=== PATIENT | female | born 1965 | race Caucasian/White ===

== ENCOUNTER 2017-06-26 12:21 | Emergency (ER) | payer OTHER, SELFPAY | END 2017-06-26 16:31 | disposition home or self-care (01) | PROVIDERS: Emergency Provider Emergency Medicine; Family Provider Emergency Medicine; Visit Provider Emergency Medicine | DX: R11.2 Nausea with vomiting, unspecified (principal); R19.7 Diarrhea, unspecified; R42 Dizziness and giddiness; I10 Essential (primary) hypertension; K51.00 Ulcerative (chronic) pancolitis without complications; Z88.2 Allergy status to sulfonamides; Z88.6 Allergy status to analgesic agent | CPT/HCPCS: 80053; 83690; 83735; 85025; 96365; 96367; 96375; 99285 ==

== ENCOUNTER 2017-08-31 13:43 | Emergency (ER) | payer OTHER, SELFPAY ==
[2017-08-31 14:09] VITALS: PULSE 83; RESP 20; TEMP 36.6; O2SAT 96; BMI 25.4
--- NOTE | 2017-08-31 14:25 | HMH.EDUTC ---
[facility] [place] Impression: Otitis media Qualifiers: Otitis media type: unspecified Chronicity: acute Qualified Code(s): H66.90 - Otitis media, unspecified, unspecified ear Disposition: Home, Self-Care Condition on Discharge: Good Instructions: Middle Ear Infection, Ear Infections (Alternative Therapy) Additional Instructions: Take medication as prescribed Over the counter Motrin or Tylenol as needed for fever or pain Warm compresses on ear may help with pain Return if needed Prescriptions: Amoxicillin [Amoxicillin 500mg Cap] 500 mg PO TID 10 Days #30 cap Referrals: Preston Wong MD [Primary Care Provider] - Time of Disposition: 14:45 Medical Decision Making - Medical Records Medical records reviewed: Yes: I reviewed the patient's medical records. Vital Signs: 08/31/17 14:09 Temperature 98 F Temperature Source Temporal Artery Scan Pulse Rate [Right Radial] 83 Respiratory Rate 20 02 Sat by Pulse Oximetry 96 Oxygen Delivery Method Room Air - Ruben Inquiry Pt receiving controlled substance: No Ruben was queried for this patient: No [facility] [place] - General Stated complaint: both ear pain Mode of Arrival: Family Vehicle Source of Information: Patient Limitations: No Limitations Description of Symptoms (Recalled from Triage Doc. by RN): PT C/O RIGHT JAW PAIN AND EAR PAIN. HEENT Symptoms (Recalled from RN notes): Yes (RIGHT EAR AND JAW PAIN) Resp Symptoms (Recalled from RN notes): No Skin Symptoms (Recalled from RN notes): No MS Symptoms (Recalled from RN notes): No Functional Status (Recalled from RN notes): NA - History of Present Illness Provider Complaint: Patient state that she has been having bilateral ear pain State that right ear has been hurting on and off for over 2 weeks States that she thought it may be her tooth where she had dental work done on her right upper jaw but now right ear is hurting worse than it was - Related Data Home Medications Medication Instructions Recorded Confirmed Cyanocobalamin (Vitamin B-12) 500 mcg PO DAILY 08/31/17 08/31/17 [Vitamin B-12] Hop/Blk Coh/Rhodiola/Flax/Prim 3 each PO DAILY 08/31/17 08/31/17 [Viveben Softgel] Lactobacil 2-S.thermo-Bifido 1 4 each PO DAILY 08/31/17 08/31/17 [Vsl#3 Capsule] Magnesium 250 mg PO DAILY 08/31/17 08/31/17 Previous Rx's Medication Instructions Recorded Amoxicillin [Amoxicillin 500mg 500 mg PO TID 10 Days #30 cap 08/31/17 Cap] Allergies Allergy/AdvReac Type Severity Reaction Status Date / Time codeine [CODEINE] Allergy Mild Verified 08/31/17 14:09 Sulfa (Sulfonamide Allergy Mild Verified 08/31/17 14:09 Antibiotics) [SULFA (SULFONAMIDE ANTIBIOTICS)] CODEINE Allergy Unknown NA-NAUSEA/V Uncoded 06/22/17 15:04 OMITING SULFA (SULFONAMIDE) Allergy Unknown ANAPHYLAXIS Uncoded 06/22/17 15:04 - Worker's Comp Is this a Worker's Comp case?: No [facility] History I have reviewed the patient's past medical history: Yes Medical History: Denies:: Cancer, Diabetes Mellitus Type 1, Diabetes Mellitus Type 2, MRSA Amputation: No Fractures: No - Social History Smoking Status: Never smoker Alcohol Intake: current Alcohol Intake Frequency:: 0-2 drinks per day - Psychiatric History Expresses thoughts of harming self/others: None Suicide Plan Description: No Plan ROS Obtained: Yes All systems reviewed & no additional complaints - ENT Ears, Nose, Mouth, and Throat: Reports otalgia Physical Exam - General General appearance: alert, in no apparent distress - Expanded ENT Exam TM/Canal exam: Right TM: erythema (TM dull, red small bubble like areas noted, left ear unable to view due to wax) - Respiratory Respiratory exam: Present: normal lung sounds bilaterally. Absent: respiratory distress - Cardiovascular Cardiovascular exam: Present: regular rate, normal rhythm. Absent: JVD - Neurological Exam Neurological exam: Present: alert, oriented X3
--- NOTE | 2017-08-31 14:41 | ED_ITS ---
[facility] [place] Clinical Impression: Otitis media Qualifiers: Otitis media type: unspecified Chronicity: acute Qualified Code(s): H66.90 - Otitis media, unspecified, unspecified ear Disposition: Home, Self-Care Condition on Discharge: Good Instructions: Middle Ear Infection, Ear Infections (Alternative Therapy) Additional Instructions: Take medication as prescribed Over the counter Motrin or Tylenol as needed for fever or pain Warm compresses on ear may help with pain Return if needed Prescriptions: Amoxicillin [Amoxicillin 500mg Cap] 500 mg PO TID 10 Days #30 cap Referrals: Preston Wong MD [Primary Care Provider] - Time of Disposition: 14:45 Medical Decision Making - Medical Records Medical records reviewed: Yes: I reviewed the patient's medical records. Vital Signs: 08/31/17 14:09 Temperature 98 F Temperature Source Temporal Artery Scan Pulse Rate [Right Radial] 83 Respiratory Rate 20 02 Sat by Pulse Oximetry 96 Oxygen Delivery Method Room Air - Ruben Inquiry Pt receiving controlled substance: No Ruben was queried for this patient: No [facility] [place] - General Stated complaint: both ear pain Mode of Arrival: Family Vehicle Source of Information: Patient Limitations: No Limitations Description of Symptoms (Recalled from Triage Doc. by RN): PT C/O RIGHT JAW PAIN AND EAR PAIN. HEENT Symptoms (Recalled from RN notes): Yes (RIGHT EAR AND JAW PAIN) Resp Symptoms (Recalled from RN notes): No Skin Symptoms (Recalled from RN notes): No MS Symptoms (Recalled from RN notes): No Functional Status (Recalled from RN notes): NA - History of Present Illness Provider Complaint: Patient state that she has been having bilateral ear pain State that right ear has been hurting on and off for over 2 weeks States that she thought it may be her tooth where she had dental work done on her right upper jaw but now right ear is hurting worse than it was - Related Data Home Medications Medication Instructions Recorded Confirmed Cyanocobalamin (Vitamin B-12) 500 mcg PO DAILY 08/31/17 08/31/17 [Vitamin B-12] Hop/Blk Coh/Rhodiola/Flax/Prim 3 each PO DAILY 08/31/17 08/31/17 [Viveben Softgel] Lactobacil 2-S.thermo-Bifido 1 4 each PO DAILY 08/31/17 08/31/17 [Vsl#3 Capsule] Magnesium 250 mg PO DAILY 08/31/17 08/31/17 Previous Rx's Medication Instructions Recorded Amoxicillin [Amoxicillin 500mg 500 mg PO TID 10 Days #30 cap 08/31/17 Cap] Allergies Allergy/AdvReac Type Severity Reaction Status Date / Time codeine [CODEINE] Allergy Mild Verified 08/31/17 14:09 Sulfa (Sulfonamide Allergy Mild Verified 08/31/17 14:09 Antibiotics) [SULFA (SULFONAMIDE ANTIBIOTICS)] CODEINE Allergy Unknown NA-NAUSEA/V Uncoded 06/22/17 15:04 OMITING SULFA (SULFONAMIDE) Allergy Unknown ANAPHYLAXIS Uncoded 06/22/17 15:04 - Worker's Comp Is this a Worker's Comp case?: No [facility] History I have reviewed the patient's past medical history: Yes Medical History: Denies:: Cancer, Diabetes Mellitus Type 1, Diabetes Mellitus Type 2, MRSA Amputation: No Fractures: No - Social History Smoking Status: Never smoker Alcohol Intake: current Alcohol Intake Frequency:: 0-2 drinks per day - Psychiatric History Expresses
[2017-08-31 14:46] VITALS: BP 117/94; PULSE 65; RESP 20; TEMP 36.9; O2SAT 99
== END 2017-08-31 14:50 | disposition home or self-care (01) ==
PROVIDERS: Emergency Provider Nurse Practitioner; Family Provider Emergency Medicine; PCP Emergency Medicine
DX: H66.90 Otitis media, unspecified, unspecified ear (principal); Z79.899 Other long term (current) drug therapy
CPT/HCPCS: 99202

== ENCOUNTER → 2017-10-05 11:10 | Outpatient (POV) | payer OTHER, SELFPAY | PROVIDERS: Family Provider Emergency Medicine; PCP Emergency Medicine; Visit Provider Otolaryngology | DX: Z00.00 Encounter for general adult medical examination without abnormal findings (principal) ==

== ENCOUNTER → 2017-10-27 08:52 | Outpatient (CLI) | payer OTHER, SELFPAY ==
--- NOTE | 2017-10-27 08:56 | XR_ITS ---
XR elbow LT min 3V HISTORY: Pain with limited range of motion ITS.REASON: left elbow pain ORDERING PHYSICIAN: Beto Nguyen MD PATIENT AGE: 51 years FINDINGS: There is a nondisplaced longitudinal fracture involving the head of the radius with intra-articular extension with mild distraction of the radial neck. Fracture line is less sharp than expected for an acute fracture consistent with a subacute fracture. IMPRESSION: Nondisplaced longitudinal intra-articular fracture of the radial head with mild impaction of the radial neck
== END ==
PROVIDERS: PCP Emergency Medicine; Visit Provider Orthopaedic Surgery
DX: M25.522 Pain in left elbow (principal)
CPT/HCPCS: 73080

== ENCOUNTER → 2018-03-08 10:46 | Outpatient (POV) | payer OTHER, SELFPAY | PROVIDERS: Family Provider Emergency Medicine; PCP Emergency Medicine; Visit Provider Otolaryngology | DX: Z00.00 Encounter for general adult medical examination without abnormal findings (principal) ==

== ENCOUNTER → 2018-04-08 09:31 | Outpatient (CLI) | payer OTHER, SELFPAY ==
[2018-04-08 10:25] LABS: Basophils % 0.7 % (0.1-2.0); Eosinophils # 0.1 K/mm3 (0.0-0.4); Eosinophils % 2.5 % (0.1-12.0); Hematocrit 44.3 % (37.0-47.0); Hemoglobin 14.2 g/dL (12.2-16.2); Lymphocytes # 1.2 K/mm3 (0.7-4.5); Lymphocytes % 27.2 K/mm3 (10-50); Mean Corpuscular HGB Conc 32.1 g/dL (31.8-35.4); Mean Corpuscular Hemoglobin 30.4 pg (27.0-31.2); Mean Corpuscular Volume 94.5 fl (81-99); Mean Platelet Volume 7.3 fl (7.4-10.4); Monocytes # 0.2 K/mm3 (0.1-1.0); Monocytes % 4.2 % (1.7-9.3); Neutrophils # 2.9 K/mm3 (1.8-7.8); Neutrophils % 65.3 % (37.0-80.0); Platelet Count 411 K/mm3 (142-424); Red Blood Count 4.68 M/mm3 (4.20-5.40); Red Cell Distribution Width 15.7 % (11.5-17.5); White Blood Count 4.5 K/mm3 (4.8-10.8)
[2018-04-08 11:10] LABS: Alanine Aminotransferase 25 U/L (12-78); Albumin Level 3.8 gm/dL (3.4-5.0); Albumin/Globulin Ratio 1.1 (1.1-1.8); Alkaline Phosphatase 75 U/L (46-116); Anion Gap 13.8 mEq/L (5-15); Aspartate Amino Transferase 18 U/L (15-37); Bilirubin,Total 0.6 mg/dL (0.2-1.0); Blood Urea Nitrogen 7 mg/dL (7-18); Calcium 9.2 mg/dL (8.5-10.1); Carbon Dioxide 27 mmol/L (21.0-32.0); Chloride 105 mmol/L (98-107); Chol/HDL Ratio 2.3 (1-3.5); Cholesterol 244 mg/dL (140-200); Estimated Glomerular Filt Rate 87 ml/min (>60); GFR (African American) 106 ML/MIN (>60); Globulin 3.4 gm/dl (1.3-3.2); Glucose 105 mg/dL (74-106); HDL Cholesterol 107 mg/dL (29-89); LDL Cholesterol 114 mg/dL (0-130); Potassium 3.8 mmoL/L (3.5-5.1); Sodium 142 mmol/L (136-145); Total Protein,Serum 7.2 gm/dL (6.4-8.2); Triglycerides 117 mg/dL (30-200); VLDL Cholesterol 23 mg/dL (0-40)
[2018-04-09 08:20] LABS: Testosterone,Total 14 ng/dL (3-41)
[2018-04-09 18:09] LABS: Estradiol <5.0 pg/mL (.)
[2018-04-09 18:11] LABS: Vitamin B12 455 pg/mL (232-1245); Vitamin D 25 Hydroxy 45.1 ng/mL (30.0-100.0)
[2018-04-11 04:06] LABS: Testosterone,Free 0.2 pg/mL (0.0-4.2)
== END ==
PROVIDERS: PCP Nurse Practitioner Obstetrics & Gynecology; Visit Provider Nurse Practitioner Obstetrics & Gynecology
DX: R53.83 Other fatigue (principal)
CPT/HCPCS: 36415; 80053; 80061; 82607; 82652; 82670; 84402; 84403; 85025

== ENCOUNTER → 2018-09-22 16:24 | Outpatient (CLI) | payer OTHER, SELFPAY ==
[2018-09-22 18:36] LABS: C-Reactive Protein < 0.2 mg/L (0.0-0.9)
[2018-09-24 08:29] LABS: DHEA-Sulfate 113.7 ug/dL (41.2-243.7)
[2018-09-26 08:19] LABS: Estradiol 26.3 pg/mL (.); Progesterone 0.4 ng/mL (.)
[2018-09-27 13:10] LABS: Testosterone, Total, LC/MS 29.9 ng/dL (.); Testosterone,Free 0.5 pg/mL (0.0-4.2)
== END ==
PROVIDERS: Visit Provider Nurse Practitioner Adult Health
DX: R79.82 Elevated C-reactive protein (CRP) (principal); E34.9 Endocrine disorder, unspecified; R53.83 Other fatigue; Z79.890 Hormone replacement therapy
CPT/HCPCS: 36415; 82626; 82670; 84144; 84402; 84403; 86140

== ENCOUNTER → 2019-09-07 09:34 | Outpatient (CLI) | payer OTHER, SELFPAY ==
[2019-09-07 11:02] LABS: Basophils # 0.1 K/mm3 (0-0.2); Basophils % 1.1 % (0.1-2.0); Eosinophils # 0.3 K/mm3 (0.0-0.4); Eosinophils % 5.3 % (0.1-12.0); Hematocrit 43.8 % (37.0-47.0); Lymphocytes # 1.7 K/mm3 (0.7-4.5); Lymphocytes % 30.6 % (10-50); Mean Corpuscular HGB Conc 31.9 g/dL (31.8-35.4); Mean Corpuscular Hemoglobin 32.3 pg (27.0-31.2); Mean Corpuscular Volume 101.3 fl (81-99); Mean Platelet Volume 7.5 fl (7.4-10.4); Monocytes # 0.3 K/mm3 (0.1-1.0); Monocytes % 5.4 % (1.7-9.3); Neutrophils # 3.2 K/mm3 (1.8-7.8); Neutrophils % 57.6 % (37.0-80.0); Platelet Count 375 K/mm3 (142-424); Red Blood Count 4.32 M/mm3 (4.20-5.40); Red Cell Distribution Width 14.2 % (11.5-17.5); White Blood Count 5.6 K/mm3 (4.8-10.8)
[2019-09-07 12:02] LABS: Chloride 100 mmol/L (98-107); Potassium 4.4 mmoL/L (3.5-5.1); Sodium 136 mmol/L (136-145)
[2019-09-07 12:04] LABS: Alanine Aminotransferase 25 U/L (12-78); Blood Urea Nitrogen 13 mg/dl (7-17); Estimated Glomerular Filt Rate 74 ml/min (>60); GFR (African American) 90 ML/MIN (>60)
[2019-09-07 12:05] LABS: Albumin Level 3.9 g/dl (3.5-5.0); Albumin/Globulin Ratio 1.3 (1.1-1.8); Alkaline Phosphatase 68 U/L (38-126); Aspartate Amino Transferase 34 U/L (14-36); Bilirubin,Total 0.5 mg/dl (0.2-1.3); Calcium 9.8 mg/dl (8.4-10.2); Cholesterol 256 mg/dl (140-200); Glucose 84 mg/dl (74-100); Total Protein,Serum 6.9 g/dl (6.3-8.2); Triglycerides 101 mg/dl (30-150); VLDL Cholesterol 20 mg/dL (0-40)
[2019-09-07 12:12] LABS: C-Reactive Protein 4.9 mg/L (0-4)
[2019-09-07 12:15] LABS: HDL Cholesterol > 110 mg/dl (40-60)
[2019-09-07 12:17] LABS: Direct LDL Cholesterol 137.25 mg/dL (100-129)
[2019-09-07 12:22] LABS: Triiodothryronine (T3) Uptake 31 % (23.5-40.5)
[2019-09-07 12:23] LABS: Free Thyroxine Index 2.6 ug/dL (5.93-13.13); T4 (Thyroxine) 8.5 ug/dl (5.53-11.0)
[2019-09-07 12:37] LABS: Thyroid Stimulating Hormone 1.46 uIU/mL (0.465-4.68)
[2019-09-07 12:58] LABS: Anion Gap 15.4 mEq/L (5-15); Carbon Dioxide 25 mmol/L (22.0-30.0)
[2019-09-08 06:30] LABS: DHEA-Sulfate 648.6 ug/dL (29.4-220.5)
[2019-09-08 10:32] LABS: Vitamin D 25 Hydroxy 38.2 ng/mL (30.0-100.0)
[2019-09-08 13:59] LABS: Vitamin B12 667 pg/mL (232-1245)
[2019-09-12 14:58] LABS: Testosterone, Total, LC/MS 39.1 ng/dL (.); Testosterone,Free 1.5 pg/mL (0.0-4.2)
== END ==
PROVIDERS: Visit Provider Nurse Practitioner Adult Health
DX: R79.82 Elevated C-reactive protein (CRP) (principal); E34.9 Endocrine disorder, unspecified; R53.83 Other fatigue; E78.2 Mixed hyperlipidemia; E55.9 Vitamin D deficiency, unspecified; E53.8 Deficiency of other specified B group vitamins; Z13.29 Encounter for screening for other suspected endocrine disorder; Z79.890 Hormone replacement therapy
CPT/HCPCS: 36415; 80053; 80061; 82607; 82626; 82652; 82670; 84144; 84402; 84403; 84436; 84443; 84479; 85025; 86140

== ENCOUNTER → 2020-10-07 11:02 | Outpatient (CLI) | payer SELFPAY ==
[2020-10-07 11:17] LABS: Basophils # 0.1 K/mm3 (0-0.2); Basophils % 0.9 % (0.1-2.0); Eosinophils # 0.2 K/mm3 (0.0-0.4); Eosinophils % 2.4 % (0.1-12.0); Hematocrit 46.2 % (37.0-47.0); Hemoglobin 14.4 g/dL (12.2-16.2); Lymphocytes # 1.8 K/mm3 (0.7-4.5); Lymphocytes % 28.2 % (10-50); Mean Corpuscular HGB Conc 31.1 g/dL (31.8-35.4); Mean Corpuscular Hemoglobin 30.7 pg (27.0-31.2); Mean Corpuscular Volume 98.7 fl (81-99); Mean Platelet Volume 7.3 fl (7.4-10.4); Monocytes # 0.4 K/mm3 (0.1-1.0); Monocytes % 5.4 % (1.7-9.3); Neutrophils # 4.1 K/mm3 (1.8-7.8); Platelet Count 396 K/mm3 (142-424); Red Blood Count 4.68 M/mm3 (4.20-5.40); Red Cell Distribution Width 14.2 % (11.5-17.5); White Blood Count 6.5 K/mm3 (4.8-10.8)
[2020-10-07 11:23] LABS: Chloride 106 mmol/L (98-107); Potassium 4.9 mmoL/L (3.5-5.1); Sodium 141 mmol/L (136-145)
[2020-10-07 11:26] LABS: Anion Gap 10.9 mEq/L (5-15); Blood Urea Nitrogen 12 mg/dl (7-17); Carbon Dioxide 29 mmol/L (22.0-30.0); Estimated Glomerular Filt Rate 74 ml/min (>60); GFR (African American) 90 ML/MIN (>60)
[2020-10-07 11:27] LABS: Calcium 9.8 mg/dl (8.4-10.2); Glucose 110 mg/dl (74-100)
--- NOTE | 2020-10-07 12:56 | CT_ITS ---
PROCEDURE: CT ABDOMEN PELVIS WO/W CON CLINICAL INDICATION: rule out possible appendicitis Right lower quadrant pain with nausea COMPARISON: CT ABDPELW CT ABD PELVIS W/ CONTRAST from 12/03/2014 TECHNIQUE: IV Contrast: 75ML Isovue 370 Oral Contrast None Axial images obtained with sagittal and coronal reformats. All CT scans at the facility use one or more dose reduction, viz: automated exposure control, ma/kV adjustment per patient size (including targeted exams where dose is matched to indication, i.e. head), or iterative reconstruction technique. FINDINGS: LOWER THORAX: There is a small subpleural opacity in the left lower lobe laterally at 3 mm not significantly changed. Bilateral breast implants are present ABDOMEN & PELVIS: The liver, spleen, and pancreas have an unremarkable appearance. No renal or ureteral calculi. No hydronephrosis. No renal mass. There is no evidence appendicitis or diverticulitis. There is mild thickening with fatty infiltration of the wall of the sigmoid colon and rectosigmoid region which could be seen with chronic inflammatory changes. No pelvic mass or abnormal fluid collection. There are surgical clips in the left adnexal region. There is degenerative disc disease with grade 1 spondylitic spondylolisthesis of L5 on S1. There are few small nodular opacities in the left pericolic gutter region which may be due to small lymph nodes. There are small periportal nodes also noted. Small mesenteric nodes are present as well. IMPRESSION: 1. No evidence of acute appendicitis. 2. Mild thickening of the rectosigmoid colon with mild fatty infiltration of the mucosa which may be seen with chronic inflammatory change. 3. Other nonacute findings as described above. Dictated by: Mitchell Hendricks MD 10/07/2020 14:07 Mitchell Hendricks MD in [place] 10/07/2020 14:07
== END ==
PROVIDERS: Visit Provider Nurse Practitioner Obstetrics & Gynecology
DX: R10.31 Right lower quadrant pain (principal)
CPT/HCPCS: 36415; 74178; 80048; 85025; Q9967

== ENCOUNTER 2021-01-17 09:56 | Outpatient (CLI) | payer OTHER, SELFPAY ==
[2021-01-17 10:16] VITALS: BMI 26.6
[2021-01-17 10:40] VITALS: BP 128/78; PULSE 76; RESP 17; O2SAT 98
[2021-01-17 10:48] LABS: Basophils # 0.1 K/mm3 (0-0.2); Basophils % 0.8 % (0.1-2.0); Eosinophils # 0.3 K/mm3 (0.0-0.4); Eosinophils % 4.1 % (0.1-12.0); Hematocrit 41.2 % (37.0-47.0); Hemoglobin 13.7 g/dL (12.2-16.2); Lymphocytes # 1.2 K/mm3 (0.7-4.5); Mean Corpuscular HGB Conc 33.3 g/dL (31.8-35.4); Mean Corpuscular Hemoglobin 31.6 pg (27.0-31.2); Mean Corpuscular Volume 94.9 fl (81-99); Monocytes # 0.5 K/mm3 (0.1-1.0); Monocytes % 5.9 % (1.7-9.3); Neutrophils % 74.3 % (37.0-80.0); Platelet Count 339 K/mm3 (142-424); Red Blood Count 4.34 M/mm3 (4.20-5.40); Red Cell Distribution Width 14.6 % (11.5-17.5); White Blood Count 8.1 K/mm3 (4.8-10.8)
[2021-01-17 10:48] LABS: Adenovirus F 40/41, stool Not Detected (NotDetected); Astrovirus Not Detected (NotDetected); Campylobacter Not Detected (NotDetected); Clostridium Difficile A/B, PCR Not Detected (NotDetected); Cryptosporidium Not Detected (NotDetected); Cyclospora Cayetanesis Not Detected (NotDetected); Entamoeba histolytica Not Detected (NotDetected); Enteroaggregative E coli Not Detected (NotDetected); Enteropathogenic E coli Not Detected (NotDetected); Enterotoxigenic E coli Not Detected (NotDetected); Giardia lamblia Not Detected (NotDetected); Norovirus Not Detected (NotDetected); Plesimonas Shigalloides, PCR Not Detected (NotDetected); Rotavirus A Not Detected (NotDetected); Salmonella, PCR Not Detected (NotDetected); Sapovirus Not Detected (NotDetected); Shiga-like toxin E coli Not Detected (NotDetected); Shigella Enterovasive E coli Not Detected (NotDetected); Vibrio Cholerae Not Detected (NotDetected); Vibrio, PCR Not Detected (NotDetected); Yersinia Entercolitica, PCR Not Detected (NotDetected)
[2021-01-17 10:55] LABS: Alanine Aminotransferase 14 U/L (12-78); Albumin Level 3.6 g/dl (3.5-5.0); Albumin/Globulin Ratio 1.1 (1.1-1.8); Alkaline Phosphatase 96 U/L (38-126); Anion Gap 9.2 mEq/L (5-15); Aspartate Amino Transferase 22 U/L (14-36); Blood Urea Nitrogen 7 mg/dl (7-17); Calcium 8.5 mg/dl (8.4-10.2); Carbon Dioxide 30 mmol/L (22.0-30.0); Chloride 100 mmol/L (98-107); Creatinine Clearance Estimated 86 mL/min (50-200); Estimated Glomerular Filt Rate 65 ml/min (>60); GFR (African American) 78 ML/MIN (>60); Globulin 3.2 g/dL (1.3-3.2); Glucose 103 mg/dl (74-100); Lipase 23 U/L (23-300); Potassium 3.2 mmoL/L (3.5-5.1); Sodium 136 mmol/L (136-145); Total Protein,Serum 6.8 g/dl (6.3-8.2)
[2021-01-17 11:01] LABS: C-Reactive Protein 150.7 mg/L (0-4)
--- NOTE | 2021-01-17 11:46 | CT_ITS ---
PROCEDURE: CT ABDOMEN PELVIS W CON CLINICAL INDICATION: Abdominal Pain, history ulcerative colitis COMPARISON: CT CT ABDOMEN PELVIS WO/W CON from 10/07/2020 TECHNIQUE: IV Contrast: 75ML Isovue 370 Oral Contrast None Axial images obtained with sagittal and coronal reformats. All CT scans at the facility use one or more dose reduction, viz: automated exposure control, ma/kV adjustment per patient size (including targeted exams where dose is matched to indication, i.e. head), or iterative reconstruction technique. FINDINGS: LOWER THORAX: No acute finding. Bilateral breast implants noted. ABDOMEN & PELVIS: The liver, gallbladder, spleen, adrenal glands, gallbladder, pancreas, and kidneys have an unremarkable appearance. No intestinal obstruction or free air is evident. There is mild diffuse thickening of the descending colon, sigmoid colon, and rectum. There is stranding of the pericolic fat along the descending colon. Multiple small mildly prominent mesenteric lymph nodes are present and have developed since the previous exam. No abscess or perforation. No obvious fistula. No acute bony findings. IMPRESSION: Colitis of the descending colon, sigmoid colon, and rectum with associated mild Roxanne prominent lymph nodes in the mesenteries. No abscess or perforation Dictated by: Mitchell Hendricks MD 01/17/2021 12:35 Mitchell Hendricks MD in [place] 01/17/2021 12:35
[2021-01-17 12:05] VITALS: BP 131/76; PULSE 81; RESP 17; O2SAT 99
[2021-01-17 12:15] LABS: Erythrocyte Sedimentation Rate 39 mm/hr (0-30)
== END 2021-01-17 12:11 | disposition home or self-care (01) ==
LOC: LAB 09:58
PROVIDERS: PCP Emergency Medicine; Visit Provider Emergency Medicine
DX: R10.9 Unspecified abdominal pain (principal)
CPT/HCPCS: 74177; 80053; 83690; 85025; 85651; 86140; 87507; 96360; Q9967

== ENCOUNTER → 2021-01-29 11:54 | Outpatient (CLI) | payer OTHER, SELFPAY | PROVIDERS: Visit Provider Internal Medicine Gastroenterology | DX: Z20.822 Contact with and (suspected) exposure to COVID-19 (principal) | CPT/HCPCS: U0003 ==

== ENCOUNTER 2021-01-31 09:23 | Day surgery (SDC) | payer OTHER, SELFPAY ==
[2021-01-29 08:55] VITALS: BMI 23.3
[2021-01-31] VITALS (10 sets, daily range): BP systolic 85–130; BP diastolic 60–89; PULSE 88–99; RESP 16–18; TEMP 36.6–37.2; O2SAT 95–100
--- NOTE | 2021-01-31 10:40 | HMH.ANESCL ---
[facility] Anesthesia Checklist - Patient Identification Patient Identification: Arm Band - Structural Data Admitted From: Home Planned Operative Procedure/s: Colonoscopy Consent for Planned Operative Procedure(s) Verified: Yes - NPO Status Verified Time NPO: 00:00 - Airway Assessment C-Spine Mobility Assessed: Yes TMJ Mobility Assessed: Yes Dentition: Good Dentition - Neurological Assessment Level of Consciousness: Awake Hx Seizures: No Numbness or tingling in extremities: No - Anesthesia Plan Anesthesia Risk discussed: Yes Anesthesia Plan: Verified ASA Class: II Anesthesia Type: MAC [facility] History I have reviewed the patient's past medical history: Yes Medical History: Denies:: Cancer, Diabetes Mellitus Type 1, Diabetes Mellitus Type 2, Internal Pacemaker, MRSA, Seizures *Have you ever received a pneumonia vaccine?: No *Have you received a flu vaccine this season?: No Anesthesia experience/problems:: None Other Surgeries: Yes: Colonoscopy, Hysterectomy-Partial. No: Pacemaker Amputation: No Fractures: No - *Social History Last grade of school completed: Some college Smoking Status: Never smoker Alcohol Intake: current Alcohol Intake Frequency:: a few times a month Substance Use Type: denies use *Occupational Status:: unemployed Housing: house Household Members: spouse *Travel in the last 8 weeks: None Family Hx:: Hypertension GUEST RELATIONS MANAGER history: Spontaneous
--- NOTE | 2021-01-31 11:35 | HMH.PROC ---
[facility] Procedure Note Procedure Note:: Colonoscopy Procedure Report: Colonoscopy with cold biopsies Endoscopist: Dejuan Juarez II, MD Referring physician: Preston Wong MD Date of Procedure: January 31, 2021 Equipment: Olympus 190 variable stiffness pediatric colonoscope Sedation: MAC sedation Indication: Mrs. Haywood is a 55-year-old female who is here for diagnostic colonoscopy. More recently, she has had more significant lower abdominal pain and cramps with bloating and bowel irregularity. She did go to the emergency department and had a CAT scan of the abdomen and pelvis. There was evidence of moderate colitis. Her C-reactive protein was 150 and her sed rate was 39. Her PCR gastrointestinal panel for microbials was normal. She did have a colonoscopy in October 2013 that showed moderate left-sided ulcerative proctocolitis. Biopsies at that time were consistent with ulcerative colitis/IBD. She had a small tubular adenoma. She was eating meat/poultry diet with very little residue and previously was taking a stronger probiotic (VSL #3). She did well at that time and has not been on any long-term maintenance of remission therapy for the ulcerative colitis. The patient did respond to prednisone and antibiotics but is tapering off of prednisone. She still has some tenesmus. Procedure: Prior to the procedure, a history and physical exam was performed, and patient's medications and allergies were reviewed. The risks, benefits and alternatives of the sedation and procedure were discussed with the patient. All questions were answered and informed consent was obtained. The patient was brought to the procedure room. Patient identification and proposed procedure were verified by the physician and the nurse. The patient was placed in a left lateral decubitus position and the scope was passed under direct vision. Throughout the procedure, the patient's blood pressure, pulse, and oxygen saturations were monitored continuously. The colonoscopy was accomplished without difficulty. The patient tolerated the procedure well. Findings: On digital rectal examination there was normal rectal tone. There were no external hemorrhoids. The colonoscope was introduced through the anal canal to the rectum and advanced to the cecum. The ileocecal valve and appendiceal orifice were identified. The scope was advanced a short distance into the ileum which appeared grossly normal. The scope was then withdrawn into the colon. The cecum and ascending colon were normal. Throughout the transverse colon there were several scattered pseudopolyps indicative of healing of prior colitis. From 60 cm from the anal verge throughout the descending, sigmoid and rectum was marked mucosal erythema, edema, granularity, ulceration, erosion and some spontaneous bleeding consistent with moderate to marked left-sided ulcerative colitis. Multiple biopsies were taken from the descending and sigmoid colon. This extended all the way to the anal verge. There were small internal hemorrhoids. The preparation was excellent throughout. Impression: 1. Moderate to marked left-sided ulcerative colitis (from 60 cm to the anal verge) and evidence of more proximal colonic pseudopolyps from prior IBD healing Plan: I do think the patient has had chronic ulcerative colitis and now has more significant flareup (acute on chronic ulcerative colitis). I am concerned about the future colectomy risk and risk of developing strictures. More importantly, patients with ulcerative colitis are at increased risk of colorectal cancer and this cumulative risk increases over the course of time. I would encourage increasing prednisone for longer tapering interval and adding mesalamine. The patient does have more severe colitis presently and I would strongly consider top-down approach with a biologic. I will discuss the treatment options with the patient and family.
[2021-01-31 13:07] LABS: Basophils # 0.1 K/mm3 (0-0.2); Basophils % 0.5 % (0.1-2.0); Eosinophils # 0.4 K/mm3 (0.0-0.4); Eosinophils % 3.7 % (0.1-12.0); Hematocrit 37.8 % (37.0-47.0); Hemoglobin 12.5 g/dL (12.2-16.2); Lymphocytes # 1.3 K/mm3 (0.7-4.5); Lymphocytes % 12.7 % (10-50); Mean Corpuscular HGB Conc 32.9 g/dL (31.8-35.4); Mean Corpuscular Hemoglobin 31.1 pg (27.0-31.2); Mean Corpuscular Volume 94.3 fl (81-99); Mean Platelet Volume 7.7 fl (7.4-10.4); Monocytes # 0.6 K/mm3 (0.1-1.0); Monocytes % 5.6 % (1.7-9.3); Neutrophils # 7.7 K/mm3 (1.8-7.8); Neutrophils % 77.5 % (37.0-80.0); Platelet Count 384 K/mm3 (142-424); Red Blood Count 4.02 M/mm3 (4.20-5.40); Red Cell Distribution Width 14.8 % (11.5-17.5); White Blood Count 9.9 K/mm3 (4.8-10.8)
[2021-01-31 13:14] LABS: Iron 24 ug/dL (37-170)
[2021-01-31 13:23] LABS: Total Iron Binding Capacity 281 ug/dL (265-497)
[2021-01-31 13:50] LABS: Ferritin 61.9 ng/ml (11.1-264)
[2021-02-04 16:13] LABS: Saccharomyces cerevisiae, IgA 115.3 Units (0.0-24.9); Saccharomyces cerevisiae, IgG 33.1 Units (0.0-24.9)
== END 2021-01-31 13:42 | disposition home or self-care (01) ==
LOC: OUTP 09:25
PROVIDERS: PCP Emergency Medicine; Visit Provider Internal Medicine Gastroenterology
PROC: 0DJD8ZZ Inspection of Lower Intestinal Tract, Via Natural or Artificial Opening Endoscopic (ICD-10-PCS; CPT 45378; principal; 2021-01-31 10:30)
DX: K51.80 Other ulcerative colitis without complications (principal); K64.0 First degree hemorrhoids; Z86.010 Personal history of colon polyps; Z87.19 Personal history of other diseases of the digestive system; Z82.49 Family history of ischemic heart disease and other diseases of the circulatory system; D64.9 Anemia, unspecified; Z88.2 Allergy status to sulfonamides; Z88.6 Allergy status to analgesic agent; Z79.899 Other long term (current) drug therapy
CPT/HCPCS: 45380; 36415; 82728; 83540; 83550; 85025; 86256; 86671

== ENCOUNTER → 2021-02-06 14:51 | Outpatient (CLI) | payer OTHER, SELFPAY ==
--- NOTE | 2021-02-06 14:58 | XR_ITS ---
PROCEDURE: XR CHEST 2V CLINICAL HISTORY: 12 MONTH CHEST XRAY FOLLOW UP COMPARISON: No exams were available for comparison FINDINGS: The cardiomediastinal silhouette and pulmonary vascularity are within normal limits. The lungs are clear without infiltrates, suspicious nodules, or pleural effusions. Calcified granuloma is present in the left lung base. Faint opacity is present in the left upper lobe at 5 x 2 mm nonspecific. There is minimal biapical pleural thickening nonspecific. No previous exams are available for comparison. Bilateral breast implants noted IMPRESSION: Nonspecific nonacute findings. If there are old films available then comparison can be made and an addendum added when they are made available. Dictated by: Mitchell Hendricks MD 02/06/2021 15:47 Mitchell Hendricks MD in [place] 02/06/2021 15:47
[2021-02-09 07:41] LABS: QuantiFERON-TB Gold Plus Negative (Negative)
== END ==
PROVIDERS: PCP Emergency Medicine; Visit Provider Internal Medicine Gastroenterology
DX: K51.511 Left sided colitis with rectal bleeding (principal)
CPT/HCPCS: 36415; 71046; 86480

== ENCOUNTER → 2021-09-26 19:42 | Outpatient (CLI) | payer OTHER, SELFPAY ==
[2021-09-26 14:08] LABS: Basophils # 0.1 K/mm3 (0-0.2); Eosinophils # 0.1 K/mm3 (0.0-0.4); Eosinophils % 2.3 % (0.1-12.0); Hematocrit 45.3 % (37.0-47.0); Hemoglobin 13.8 g/dL (12.2-16.2); Lymphocytes # 1.5 K/mm3 (0.7-4.5); Lymphocytes % 31.3 % (10-50); Mean Corpuscular HGB Conc 30.5 g/dL (31.8-35.4); Mean Corpuscular Hemoglobin 30.7 pg (27.0-31.2); Mean Corpuscular Volume 100.6 fl (81-99); Mean Platelet Volume 10.6 fl (7.4-10.4); Monocytes # 0.3 K/mm3 (0.1-1.0); Monocytes % 6.2 % (1.7-9.3); Neutrophils # 2.9 K/mm3 (1.8-7.8); Neutrophils % 59.3 % (37.0-80.0); Platelet Count 305 K/mm3 (142-424); Red Blood Count 4.51 M/mm3 (4.20-5.40); Red Cell Distribution Width 16.2 % (11.5-17.5); White Blood Count 4.9 K/mm3 (4.8-10.8)
[2021-09-26 14:49] LABS: Chloride 102 mmol/L (98-107); Potassium 4.9 mmoL/L (3.5-5.1); Sodium 135 mmol/L (136-145)
[2021-09-26 14:52] LABS: Alanine Aminotransferase 19 U/L (12-78); Albumin Level 3.7 g/dl (3.5-5.0); Albumin/Globulin Ratio 1.2 (1.1-1.8); Anion Gap 10.9 mEq/L (5-15); Aspartate Amino Transferase 31 U/L (14-36); Blood Urea Nitrogen 10 mg/dl (7-17); Calcium 8.8 mg/dl (8.4-10.2); Carbon Dioxide 27 mmol/L (22.0-30.0); Estimated Glomerular Filt Rate 74 ml/min (>60); GFR (African American) 89 ML/MIN (>60); Glucose 87 mg/dl (74-100); Total Protein,Serum 6.7 g/dl (6.3-8.2)
[2021-09-26 16:13] LABS: Alkaline Phosphatase 81 U/L (38-126); Bilirubin,Total 0.5 mg/dl (0.2-1.3)
== END ==
PROVIDERS: Visit Provider Emergency Medicine
DX: Z41.9 Encounter for procedure for purposes other than remedying health state, unspecified (principal); Z01.818 Encounter for other preprocedural examination
CPT/HCPCS: 80053; 85025

== ENCOUNTER 2022-10-20 10:48 | Emergency (ER) | payer OTHER, SELFPAY ==
[2022-10-20] VITALS (7 sets, daily range): BP systolic 180–209; BP diastolic 115–128; PULSE 65–84; RESP 16–18; TEMP 36.8–36.9; O2SAT 97–99; BMI 25.4
--- NOTE | 2022-10-20 10:57 | XR_ITS ---
FINAL REPORT CLINICAL HISTORY: FALL, rt hand pain FINDINGS: Right hand Three views were obtained. There is a comminuted fracture of the proximal 5th metacarpal. Fracture line extends to the carpometacarpal joint. There is mild irregularity of the distal 4th metacarpal and 4th proximal phalanx, may represent sequela of prior injury. There is dorsal hand soft tissue swelling. IMPRESSION: Comminuted fracture of the proximal 5th metacarpal. Reviewed, Interpreted and Dictated by Hipolito Haywood III, MD Transcribed by Balbina Lee Authenticated and [facility]
--- NOTE | 2022-10-20 10:57 | XR_ITS ---
FINAL REPORT CLINICAL HISTORY: FALL, rt knee pain FINDINGS: Right knee Three views were obtained. There is no acute fracture or dislocation. The joint spaces appear normal. No joint effusion is identified. No soft tissue abnormality is identified. IMPRESSION: No acute process. Reviewed, Interpreted and Dictated by Hipolito Haywood III, MD Transcribed by Balbina Lee Authenticated and [facility]
--- NOTE | 2022-10-20 10:57 | XR_ITS ---
FINAL REPORT CLINICAL HISTORY: FALL, rt arm pain FINDINGS: Right elbow Three views were obtained. There is no acute fracture or dislocation. The joint spaces appear normal. No joint effusion is identified. No soft tissue abnormality is identified. IMPRESSION: No acute process. Reviewed, Interpreted and Dictated by Hipolito Haywood III, MD Transcribed by Balbina Lee Authenticated and [facility]
--- NOTE | 2022-10-20 11:09 | XR_ITS ---
FINAL REPORT CLINICAL HISTORY: fall FINDINGS: Right forearm Two views were obtained. There is no acute fracture or dislocation. The joint spaces appear normal. No soft tissue abnormality is identified. IMPRESSION: No acute process. Reviewed, Interpreted and Dictated by Hipolito Haywood III, MD Transcribed by Balbina Lee Authenticated and [facility]
--- NOTE | 2022-10-20 11:09 | XR_ITS ---
FINAL REPORT CLINICAL HISTORY: fall, rt arm pain FINDINGS: Right wrist Three views were obtained. There is a comminuted fracture of the proximal 5th metacarpal. Fracture line extends to the carpometacarpal joint. There is mild irregularity of the distal 4th metacarpal and 4th proximal phalanx, may represent sequela of prior injury. There is dorsal hand soft tissue swelling. IMPRESSION: Comminuted fracture of the proximal 5th metacarpal. Reviewed, Interpreted and Dictated by Hipolito Haywood III, MD Transcribed by Balbina Lee Authenticated and [facility]
--- NOTE | 2022-10-20 11:09 | PC.NURSE ---
rad notified xray orders
--- NOTE | 2022-10-20 11:10 | HMH.EDFALL ---
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 therm 1 EACH capsule 4 each PO DAILY Referrals Follow up/Referrals: Daniel Craig DO [Staff Physician] - 7-14 days Preston Wong MD [Primary Care Provider] - 10 days Provider,ReferralMD [Referring] - See instructions Clinical Impressions Clinical Impression: Metacarpal bone fracture, Right wrist sprain, Contusion of knee, HTN (hypertension) Discharge ED Provider: Daniella Jay HPI General Chief Complaint: Fall Stated Complaint: fall Time Seen by Provider: 10/20/22 10:51 Mode of Arrival: EMS Source of Information: Patient and EMS Limitations: No Limitations Description of Symptoms (Recalled from ER Triage Doc. by RN): PT BROUGHT IN VIA EMS FOR TRIP AND FALL FROM STANDING. PT C/O RIGHT WRIST/HAND ELBOW AND RIGHT KNEE PAIN. ABRASION NOTED TO RIGHT KNEE. PT DENIES HEAD INJURY, C/O HEADACHE. DENIES HEAD INJURY, NO LOC. History of Present Illness HPI Narrative: Patient is a 56-year female who fell today outside. Patient stated there was uneven sidewalk and her toe caught the edge of the sidewalk she fell forward. She has injury to the right knee and right hand and wrist area. She has abrasion to the knee and abrasion to the palmar side of the hand. Pain from the right hand on the outside fourth and fifth digits goes up to the wrist and forearm. Patient is also has pain right in the knee but she feels some tightness in her calf. She did not hit her head or pass out. Patient denies any neck pain or upper or lower back pain. She has some numbness in the right hand. No shooting pain in terms of radiculopathy from the neck to the arm or from the back to the lower leg. She has no pain in her spine. Patient stated that she did not have a headache no dizziness no confusion no slurred speech no bladder or bowel loss control. Most of the complaint and injury is to the extremities the right upper extremity and right lower extremity her tetanus shot is not up-to-date and her pain is 8 out of 10. MD complaint: fall Fall from: standing Fall witnessed: yes, by bystander Place fall occurred: street Loss of consciousness: none Prolonged down time: no Symptoms prior to fall: none Context: tripped/slipped Location of injury - extremities: Right: elbow, forearm, hand and lower leg Severity: moderate Quality: sharp and stabbing Associated symptoms (after fall): denies Related Data Home Medications Medication Instructions Recorded Confirmed Lactobac no.2-Bifidobac no.1-S. 4 each PO DAILY PROBIOTIC 08/31/17 02/13/22 thermo 112.5 billion cell capsule conjugated estrogens 0.625 mg 0.625 mg PO DAILY . 10/07/20 02/13/22 tablet progesterone micronized 100 mg 100 mg PO DAILY . 10/07/20 02/13/22 capsule thyroid (pork) 60 mg tablet ([employer]IVE 60 mg PO DAILY hypothyroidism 10/07/20 02/13/22 Thyroid) amoxicillin 250 mg capsule 250 mg PO TID 02/13/22 02/13/22 fluoxetine 40 mg capsule (Prozac) 40 mg PO HS 02/13/22 02/13/22 Previous Rx's Medication Instructions Recorded clindamycin HCl 300 mg capsule 300 mg PO TID #30 caps 02/13/22 losartan 50 mg tablet See Rx Ins
--- NOTE | 2022-10-20 11:16 | PC.NURSE ---
XR AT BEDSIDE
--- NOTE | 2022-10-20 12:39 | PC.NURSE ---
ROUNDED ON PT AT THIS TIME, UPDATED ON POC. REPORTS PAIN CONTINUES TO RIGHT HAND. DRINK PROVIDED. AT BEDSIDE. NO FURTHER NEEDS. MD NOTIFIED OF PAIN
--- NOTE | 2022-10-20 12:55 | PC.NURSE ---
rounded on pt, pt resting in bed, family at BS. pt states no needs at this time
--- NOTE | 2022-10-20 13:29 | PC.NURSE ---
Ulnar gutter splint placed on patients right upper extremity without complications. pt able to wiggle fingers; education given on how to care for splint. pt aware to call Ortho office today or tomorrow. No other questions at this time.
== END 2022-10-20 14:03 | disposition home or self-care (01) ==
PROVIDERS: Emergency Provider Emergency Medicine; PCP Emergency Medicine
DX: S62.316A Displaced fracture of base of fifth metacarpal bone, right hand, initial encounter for closed fracture (principal); S63.501A Unspecified sprain of right wrist, initial encounter; W18.30XA Fall on same level, unspecified, initial encounter
CPT/HCPCS: 29125; 73080; 73090; 73110; 73130; 73562; 90471; 90715; 96372; 99284

== ENCOUNTER → 2022-10-30 14:50 | Outpatient (CLI) | payer OTHER, SELFPAY ==
--- NOTE | 2022-10-30 14:53 | XR_ITS ---
FINAL REPORT CLINICAL HISTORY: rt ring finger injury COMPARISON: 10/20/2022 FINDINGS: RIGHT HAND: 3 views of the right hand were obtained. There is a stable comminuted fracture of the proximal 5th metacarpal. Fracture fragments are stable. There is mild irregularity of the distal 4th metacarpal and 4th proximal phalanx, may represent sequela of prior injury. There is dorsal hand soft tissue swelling. IMPRESSION: Stable 5th metacarpal fracture. Mild irregularity 4th metacarpal and 4th proximal phalanx may represent sequela of prior injury. Reviewed, Interpreted and Dictated by Hipolito Haywood III, MD Transcribed by Stephania Chiang Authenticated and [facility]
--- NOTE | 2022-10-30 15:12 | CT_ITS ---
FINAL REPORT CLINICAL HISTORY: rt ring finger fracture FINDINGS: Technique: Axial images through the right hand were performed by computed tomography. Sagittal and coronal reconstruction images were performed. This study was performed with techniques to keep radiation doses as low as reasonably achievable (ALARA). Individualized dose reduction techniques using automated exposure control or adjustment of mA and/or kV according to the patient's size were employed. There is a nondisplaced fracture of the head of the fourth metacarpal. There is a comminuted fracture of the proximal fifth metacarpal. Fracture lines extend to the carpometacarpal joint. There is a nondisplaced fracture of the triquetrum. There is no dislocation. IMPRESSION: Nondisplaced fracture of the head of the fourth metacarpal. Comminuted intra-articular fracture of the proximal fifth metacarpal. Nondisplaced fracture of the triquetrum. Reviewed, Interpreted and Dictated by Hipolito Haywood III, MD Transcribed by Eduardo Simth Authenticated and [facility]
== END ==
PROVIDERS: PCP Emergency Medicine; Visit Provider Orthopaedic Surgery
DX: S62.604A Fracture of unspecified phalanx of right ring finger, initial encounter for closed fracture (principal); S62.306A Unspecified fracture of fifth metacarpal bone, right hand, initial encounter for closed fracture
CPT/HCPCS: 73130; 73200

== ENCOUNTER 2024-01-02 03:56 | Inpatient (IN) | payer OTHER, SELFPAY ==
[2024-01-02] VITALS (25 sets, daily range): BP systolic 84–121; BP diastolic 53–83; PULSE 52–104; RESP 16–20; TEMP 36.4–37.7; O2SAT 90–100; BMI 24.8
--- NOTE | 2024-01-02 03:59 | PC.NURSE ---
pt assisted to bed per nurse
--- NOTE | 2024-01-02 04:10 | CT_ITS ---
PROCEDURE INFORMATION: Exam: CT Abdomen And Pelvis With Contrast Exam date and time: 01/02/2024 4:39 AM Age: 58 years old Clinical indication: Abdominal pain; Additional info: Lower abd pain, HX uc/crohns, TECHNIQUE: Imaging protocol: Computed tomography of the abdomen and pelvis with contrast. Radiation optimization: All CT scans at this facility use at least one of these dose optimization techniques: automated exposure control; mA and/or kV adjustment per patient size (includes targeted exams where dose is matched to clinical indication); or iterative reconstruction. Contrast material: ISOVUE; Contrast volume: 70 ml; Contrast route: IV; COMPARISON: CT ABDOMEN PELVIS W CON 01/17/2021 12:06 PM FINDINGS: Liver: Normal. No mass. Gallbladder and biliary ducts: Normal. No calcified stones. No ductal dilation. Pancreas: Normal. No ductal dilation. Spleen: Normal. No splenomegaly. Adrenal glands: Normal. No mass. Kidneys and ureters: Normal. No hydronephrosis. Stomach and bowel: Thickening of the wall the colon extending from the proximal sigmoid colon to the rectum. Moderate of free air surrounding the sigmoid colon. No free fluid. The remainder of the bowel is unremarkable. Appendix: A normal appendix is seen. Intraperitoneal space: See Stomach and bowel finding. Vasculature: Unremarkable. No abdominal aortic aneurysm. Lymph nodes: Unremarkable. No enlarged lymph nodes. Urinary bladder: Unremarkable as visualized. Reproductive: Unremarkable as visualized. Bones/joints: Unremarkable. No acute fracture. Soft tissues: Unremarkable. IMPRESSION: 1. Perforation of the sigmoid colon with a moderate amount of free air. There is no abscess. 2. There is no other acute inflammatory process. There is no bowel obstruction. 3. Normal appendix with no evidence for acute appendicitis.
--- NOTE | 2024-01-02 04:15 | ED_ITS ---
Discharge Plan Disposition Patient Disposition: Admitted Prescriptions Prescriptions: No Action progesterone micronized 100 mg capsule 100 mg PO DAILY Rx Instructions: off 7 days; repeat cycle losartan-hydrochlorothiazide 50-12.5 mg tablet 1 tab PO DAILY Qty: 30 2RF thyroid (pork) [[employer] Thyroid] 60 mg tablet 60 mg PO DAILY cephalexin 500 mg capsule 500 mg PO TID 10 Days Qty: 30 0RF Referrals Follow up/Referrals: Provider,Referral, MD [Primary Care Provider] - See instructions Clinical Impressions Clinical Impression: Perforated sigmoid colon, Ulcerative colitis, Crohn's disease Instructions Patient Instructions: DI for Acute Abdominal Pain Discharge ED Provider: Tate Carpio General Adult HPI General Chief complaint: Abdominal Pain Stated complaint: lower abd pain Time Seen by Provider: 01/02/24 04:00 Mode of Arrival: Wheelchair Source of Information: Patient and Spouse Limitations: No Limitations Description of Symptoms (Recalled from ER Triage Doc. by RN): Patient reports lower abdominal pain, bilaterally, for the last 3 days that has progressively worsened. Patient has a history of crones disease and ulcerative colitis, spouse reports that patient has not have a bowel movement in 4 days as well. History of Present Illness HPI narrative: 4-year-old female with reported history of ulcerative colitis and Crohn's presents with worsening lower abdominal pain. She reports that she typically does very well with her inflammatory bowel disease and is not on any chronic controlling medications. At the end of November she started having more symptoms. She was started on prednisone in mid December and just completed a taper yesterday. She reports that her pain has significantly worsened over the last couple of days. She denies any fevers at home but reports some chills. She reports she has not had a bowel movement in 4 days. Related Data Home Medications Medication Instructions Recorded Confirmed progesterone micronized 100 mg 100 mg PO DAILY . 10/07/20 12/15/23 capsule thyroid (pork) 60 mg tablet ([employer] 60 mg PO DAILY 12/15/23 12/15/23 Thyroid) Previous Rx's Medication Instructions Recorded losartan 50 mg-hydrochlorothiazide 1 tab PO DAILY #30 tabs 11/27/22 12.5 mg tablet cephalexin 500 mg capsule 500 mg PO TID 10 days #30 caps 12/15/23 Allergies Allergy/AdvReac Type Severity Reaction Status Date / Time codeine [CODEINE] Allergy Mild Verified 12/15/23 16:33 Sulfa (Sulfonamide Allergy Mild Verified 12/15/23 16:33 Antibiotics) [SULFA (SULFONAMIDE ANTIBIOTICS)] [facility] Disclaimer: The information contained in this section may have been updated after the patient was seen, as this information can be updated by other users. Medical History (Updated 01/02/24 @ 05:25 by Tate Carpio MD) Ulcerative colitis Crohn disease Parotitis Facial swelling Social History Smoking Status: Never smoker alcohol intake: current alcohol intake frequency: a few times a month counseling provided: none substance use type: denies use current occupational status: unemployed Travel in the last 8 weeks: None household members: spouse housing: house current occupational exposures/hazards: No caffeine: Yes ROS Obtained: Yes All systems reviewed & no additional complaints except as documented Physical Exam General General appearance: alert Comment: Uncomfortable appearing Head Head exam: atraumatic and normocephalic Eye Eye exam: Present normal appearance, PERRL and EOMI ENT ENT exam: Present normal oropharynx and normal external ear exam Neck Neck exam: Present normal inspection and full ROM Chest Chest inspection: Present normal inspection and symmetric chest wall rise; Absent tenderness Respiratory Respiratory exam: Present normal lung sounds bilaterally; Absent respiratory distress Cardiovascular Cardiovascular exam: Present normal rhythm and tachycardia Abdominal Exam Abdominal exam: Present soft and tenderness (Severe bilateral lower quadrant tenderness with guarding); Absent distention Extremities Exam Extremities exam: Present normal inspection; Absent edema or joint swelling Back Exam Back exam: Present normal inspection; Absent tenderness Neurological Exam Neurological exam: Present alert and oriented X3; Absent motor sensory deficit Psychiatric Psychiatric exam: Present normal affect and normal mood Skin Skin exam: Present warm, dry and normal color Lymphatic Lymphatic Findings: no adenopathy Medical Decision Making Medical Records Medical records reviewed: Yes I reviewed the patient's medical records. Ruben Inquiry Pt receiving controlled substance: No Ruben was queried for this patient: No Vital Signs: 01/02/24 03:56 Temperature 99.9 F H Temperature Source Oral Pulse Rate [Left Radial] 104 H Respiratory Rate 19 Blood Pressure [Right Arm] 103/73 L Blood Pressure Mean [Right Arm] 83 Blood Pressure Source [Right Arm] Automatic Cuff Blood Pressure Position [Right Arm] Sitting 02 Sat by Pulse Oximetry 97 Oxygen Delivery Method Room Air Lab Data Lab results reviewed: Yes I reviewed the patient's lab results. Lab Results 01/02/24 04:17: WBC 10.9 H, RBC 3.67 L, Hgb 12.0 L, Hct 36.1 L, MCV 98.2, MCH 32.6 H, MCHC 33.2, RDW 14.2, Plt Count 408, MPV 7.6, Neut % (Auto) 84.7 H, Lymph % (Auto) 11.1, [place] % (Auto) 2.8, Eos % (Auto) 1.1, Baso % (Auto) 0.2, Neut # (Auto) 9.2 H, Lymph # (Auto) 1.2, [place] # (Auto) 0.3, Eos # (Auto) 0.1, Baso # (Auto) 0.0, Sodium 130 L, Potassium 3.3 L, Chloride 97 L, Carbon Dioxide 27, Anion Gap 9.3, BUN 11, Creatinine 0.90, Estimated Creat Clear 73, Estimated GFR 64, Est GFR ( Amer) 77, Glucose 104 H, Calcium 7.8 L, Total Bilirubin 0.9, AST 19, ALT 17, Alkaline Phosphatase 94, Total Protein 5.9 L, Albumin 2.7 L , Globulin 3.2, Albumin/Globulin Ratio 0.8 L, Lipase 22 L 01/02/24 04:17 01/02/24 04:17 Orders (Tests/Meds): ED MEDICATIONS Generic Name Dose Route Start Last Admin Trade Name Freq PRN Reason Stop Dose Admin Piperacillin Sod/Tazobactam 100 mls @ 200 mls/hr 01/02/24 05:12 Sod 4.5 gm/ Sodium Chloride IV 01/02/24 05:41 ONCE ONE Lactated Ringer's 1,000 mls @ 125 mls/hr 01/02/24 05:30 Lactated Ringer's 1000 Ml Bag IV 02/01/24 05:29 .Q8H PENG Sodium Chloride 10 ml 01/02/24 04:53 01/02/24 04:54 Sodium Chloride 0.9% 10ml Syr (Rad Only) IV 02/01/24 04:52 10 ml NEEDED PRN Administration Maintain IV Site Discontinued Medications Generic Name Dose Route Start Last Admin Trade Name Freq PRN Reason Stop Dose Admin Acetaminophen 1,000 mg 01/02/24 04:10 01/02/24 04:23 Acetaminophen 1,000mg/100ml Vial IV 01/02/24 04:11 1,000 mg ONCE ONE Administration Lactated Ringer's 1,000 mls @ 999 mls/hr 01/02/24 04:15 01/02/24 04:21 Lactated Ringer's 1000 Ml Bag IV 01/02/24 05:15 999 mls/hr .Q1H1M PENG Administration Piperacillin Sod/Tazobactam 100 mls @ 200 mls/hr 01/02/24 05:04 01/02/24 05:23 Sod 4.5 gm/ Sodium Chloride IV 01/02/24 05:33 Not Given ONCE ONE Iopamidol 70 ml 01/02/24 04:53 01/02/24 04:54 Iopamidol-370 (76%);100ml Bottle IV 01/02/24 04:54 70 ml ONCE ONE Administration Ketorolac Tromethamine 30 mg 01/02/24 04:10 01/02/24 04:23 Ketorolac 30mg/Ml Vial IV 01/02/24 04:11 30 mg ONCE ONE Administration Ondansetron HCl 4 mg 01/02/24 04:10 01/02/24 04:22 Ondansetron 4mg/2ml Vial IV 01/02/24 04:11 4 mg ONCE ONE Administration ORDERS Category Date Time Status CT abdomen pelvis w con Stat Cat Scan 01/02/24 04:10 Completed CBC w/Auto Diff [Complete Blood Count Auto Diff] Stat Lab 01/02/24 04:17 Completed CMP [Comprehensive Metabolic Panel] Stat Lab 01/02/24 04:17 Completed Lipase Stat Lab 01/02/24 04:17 Completed UA [Urinalysis and Microscopic] Stat Lab 01/02/24 04:11 Ordered Blood Culture Stat Micro 01/02/24 05:13 Ordered Tissue Perfus/Sepsis Re-Eval Sepsis Re-Evaluation Performed: Yes Date Performed: 01/02/24 Time Performed: 05:29 Medical Decision Narrative: 58-year-old female with reported history of ulcerative colitis and Crohn's,'s recent flare, just finished a prednisone taper presents with worsening severe bilateral lower quadrant pain over the last couple of days.. History was obtained interactive discussion with patient, family, chart review. On arrival, patient is [afebrile, hemodynamically stable, satting appropriately, alert, oriented x4, GCS 15], moving all extremities spontaneously. Full physical exam performed and significant for severe lower quadrant tenderness. Differential includes but is not limited to ulcerative colitis/Crohn's flare, constipation, bowel obstruction, bowel perforation. Patient was given 1 L IV fluid bolus for symptomatic management and correction of underlying abnormalities full sepsis bolus was not given as patient is not hypovolemic. Workup initiated including CBC CMP blood culture UA CT abdomen pelvis with IV contrast. She was given IV Tylenol and IV Toradol, received Zofran, declined any opiate pain medication. On re-evaluation, patient [remains afebrile, HD stable.] Laboratory workup independently interpreted by me and significant for mild leukocytosis, normal renal function, mild electrolyte derangements. Imaging independently interpreted by me and significant for significant thickening of the rectosigmoid colon with large volume of free air in the abdomen consistent with perforated sigmoid colitis. See radiology read for full review of final results. Given patient history, exam and workup, patient's presentation most likely represents perforated sigmoid colitis. Patient was initiated on IV Zosyn, case was discussed with Dr. Ferrer the surgeon on-call who took the patient to the OR emergently for ex lap. Procedures Risk/Benefits of Procedure(s) Were Explained: Yes Critical Care Critical Care Time Critical Care Time: Yes Attestation: On 01/02/24, the high probability of a clinically significant, sudden or life threatening deterioration of the following system(s) GI required my full and direct attention, intervention and personal management. The time I documented below is in addition to time spent performing reported procedures but includes the following listed in this critical care notation. Total Time Total Critical Care Time: 41
[2024-01-02] MEDS: LACTATED RINGERS 1000ML 1,000 ML 999 ML IV (04:21)
[2024-01-02] MEDS: ONDANSETRON 4MG/2ML VIAL 4 MG IV (04:22)
[2024-01-02] MEDS: ACETAMINOPHEN 1,000MG/100ML VIAL 1000 MG IV (04:23)
[2024-01-02] MEDS: KETOROLAC 30MG/ML VIAL 30 MG IV (04:23)
[2024-01-02 04:25] LABS: Basophils % 0.2 % (0.1-2.0); Eosinophils # 0.1 K/mm3 (0.0-0.4); Eosinophils % 1.1 % (0.1-12.0); Hematocrit 36.1 % (37.0-47.0); Lymphocytes # 1.2 K/mm3 (0.7-4.5); Lymphocytes % 11.1 % (10-50); Mean Corpuscular HGB Conc 33.2 g/dL (31.8-35.4); Mean Corpuscular Hemoglobin 32.6 pg (27.0-31.2); Mean Corpuscular Volume 98.2 fl (81-99); Mean Platelet Volume 7.6 fl (7.4-10.4); Monocytes # 0.3 K/mm3 (0.1-1.0); Monocytes % 2.8 % (1.7-9.3); Neutrophils # 9.2 K/mm3 (1.8-7.8); Neutrophils % 84.7 % (37.0-80.0); Platelet Count 408 K/mm3 (142-424); Red Blood Count 3.67 M/mm3 (4.20-5.40); Red Cell Distribution Width 14.2 % (11.5-17.5); White Blood Count 10.9 K/mm3 (4.8-10.8)
[2024-01-02 04:31] LABS: Chloride 97 mmol/L (98-107); Potassium 3.3 mmoL/L (3.5-5.1); Sodium 130 mmol/L (136-145)
[2024-01-02 04:34] LABS: Alanine Aminotransferase 17 U/L (12-78); Albumin Level 2.7 g/dl (3.5-5.0); Albumin/Globulin Ratio 0.8 (1.1-1.8); Alkaline Phosphatase 94 U/L (38-126); Anion Gap 9.3 mEq/L (5-15); Aspartate Amino Transferase 19 U/L (14-36); Bilirubin,Total 0.9 mg/dl (0.2-1.3); Blood Urea Nitrogen 11 mg/dl (7-17); Calcium 7.8 mg/dl (8.4-10.2); Carbon Dioxide 27 mmol/L (22.0-30.0); Creatinine Clearance Estimated 73 mL/min (50-200); Estimated Glomerular Filt Rate 64 ml/min (>60); GFR (African American) 77 ML/MIN (>60); Globulin 3.2 g/dL (1.3-3.2); Glucose 104 mg/dl (74-100); Lipase 22 U/L (23-300); Total Protein,Serum 5.9 g/dl (6.3-8.2)
[2024-01-02] MEDS: SODIUM CHLORIDE 0.9% 10ML SYR (RAD ONLY) 10 ML IV (04:54)
[2024-01-02] MEDS: IOPAMIDOL-370 (76%);100ML BOTTLE 70 ML IV (04:54)
--- NOTE | 2024-01-02 05:05 | PC.NURSE ---
rounded on patient, no complaints at this time, patient given blanket
--- NOTE | 2024-01-02 05:14 | PC.NURSE ---
call placed for surgeon luque
--- NOTE | 2024-01-02 05:18 | PC.NURSE ---
Dr donaldson returned call. speaking at this time.
--- NOTE | 2024-01-02 05:21 | PC.NURSE ---
call placed to house per surgeon's request
--- NOTE | 2024-01-02 05:30 | PC.NURSE ---
Collected both sets of blood cultures and sent them to lab
[2024-01-02] MEDS: LACTATED RINGERS 1000ML 1,000 ML 125 ML IV (05:33)
[2024-01-02] MEDS: PIPERACILLIN/TAZO 4.5 GM in 0.9 % SODIUM CHLORIDE 100 ML IV (05:33)
--- NOTE | 2024-01-02 05:37 | PC.NURSE ---
Patient animal care supervisor assisted patient into gown, personal belongings placed in belongings bag, given to patient's spouse at this time. Jewelry placed in specimen cup and given to spouse at this time. Patient reports some improvement of pain at this time, 01/11. Awaiting surgical team at this time.
--- NOTE | 2024-01-02 05:55 | PC.NURSE ---
Assisted patient to restroom via wheelchair. Clean catch urine sample collected at this time. Patient assisted back to room, placed back on hemodynamic monitoring. No further needs expressed at this time.
[2024-01-02 06:02] LABS: Appearance,Urine SL CLOUDY (Clear); Bilirubin,Urine Negative (Negative); Blood, Urine 2+ (Negative); Color,Urine YELLOW (Yellow); Glucose,Urine (UA) Negative (Negative); Ketones,Urine Negative (Negative); Leukocyte Esterase,Urine TRACE (Negative); Microscopic, Urine URINE MICROSCOPIC (MICROSCOPIC); Nitrate,Urine Negative (Negative); PH,Urine 6.5 (5.0-8.5); Protein,Urine TRACE (Negative); Specific Gravity, Urine <= 1.005 (1.005-1.030); Urobilinogen,Urine 0.2 EU/dl (0.2)
--- NOTE | 2024-01-02 06:06 | P.PNANES_ITS ---
[facility] Disclaimer: The information contained in this section may have been updated after the patient was seen, as this information can be updated by other users. Medical History Ulcerative colitis Crohn disease Parotitis Facial swelling Social History Smoking Status: Never smoker alcohol intake: current alcohol intake frequency: a few times a month counseling provided: none substance use type: denies use current occupational status: unemployed Travel in the last 8 weeks: None household members: spouse housing: house current occupational exposures/hazards: No caffeine: Yes [facility] Anesthesia Checklist Patient Identification Patient Identification: Arm Band and Verbal (Name & ) Structural Data Admitted From: Emergency Dept Planned Operative Procedure/s: Exploratory. laparotomy Consent for Planned Operative Procedure(s) Verified: Yes Verified Documents: Surgical Consent NPO Status Verified Time NPO: 00:00 Chart Verification Results Verified: CBC and BMP Additional verifications Anesthesia Reactions: No Airway Assessment Mallampati Score:: Class II C-Spine Mobility Assessed: Yes TMJ Mobility Assessed: Yes Dentition: Good Dentition Neurological Assessment Level of Consciousness: Awake Hx Seizures: Yes Numbness or tingling in extremities: No Anesthesia Plan Anesthesia Risk discussed: Yes Anesthesia Plan: Verified ASA Class: II (II E) Anesthesia Type: General
[2024-01-02 06:55] LABS: Bacteria,Urine Trace /lpf; RBC,Urine Occasional #/hpf (0-3); WBC,Urine Occasional #/hpf (0-3)
[2024-01-02] MEDS: ENOXAPARIN 40MG/0.4ML SYRINGE 40 MG SQ (07:13)
--- NOTE | 2024-01-02 09:26 | EXP.SURG.CON ---
History of Present Illness *Admission Date: 01/02/24 *Reason for visit:: peritonitis, pneumoperitoneum *History of present illness: Mrs. Debora Haywood is a 58-year-old female with a history of inflammatory bowel disease and hypertension who presents with 4-day history of obstipation and abdominal pain, accompanied by chills and rigors. 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 She has a history of inflammatory bowel disease, first that have had ulcerative colitis, but per patient most recent colonoscopy was more indicative of Crohn's disease. She does not take any maintenance therapy. Her last colonoscopy was [address] Juarez. There was gross finding of severe inflammatory changes in the sigmoid colon. 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 Approximately 2 weeks ago, she had constipation and distention, and she was concerned that she had a Crohn's flare. She saw her PCP, who placed her on a steroid taper. Her last day of prednisone 10 mg scheduled to be tomorrow. Workup in the emergency room showed a mild leukocytosis with WBCs of 10.9, no significant electrolyte or other abnormalities on labs. CT scan showed phlegmon in the sigmoid colon with localized free air and fluid. [facility] Disclaimer: The information contained in this section may have been updated after the patient was seen, as this information can be updated by other users. Medical History (Updated 01/02/24 @ 09:40 by Marge Ferrer MD) Hypothyroidism HTN (hypertension) Ulcerative colitis Crohn disease Parotitis Facial swelling Surgical History (Updated 01/02/24 @ 09:37 by Marge Ferrer MD) Hx of colonoscopy S/P laparoscopic hysterectomy H/O breast augmentation Social History Smoking Status: Never smoker alcohol intake: current alcohol intake frequency: a few times a month counseling provided: none substance use type: denies use current occupational status: unemployed Travel in the last 8 weeks: None household members: spouse housing: house current occupational exposures/hazards: No caffeine: Yes Meds Home Medications and Allergies Home Medications Medication Instructions Recorded Confirmed Type progesterone micronized 100 mg 100 mg PO DAILY 10/07/20 01/02/24 History capsule losartan 50 mg-hydrochlorothiazide 1 tab PO DAILY #30 tabs 11/27/22 01/02/24 Rx 12.5 mg tablet thyroid (pork) 60 mg tablet (LOCKSTITCH FRONT MAKER 60 mg PO DAILY 12/15/23 01/02/24 History Thyroid) New Prescriptions to Start Prescriptions: Allergies Allergy/AdvReac Type Severity Reaction Status Date / Time codeine [CODEINE] Allergy Mild Verified 12/15/23 16:33 Sulfa (Sulfonamide Allergy Mild Verified 12/15/23 16:33 Antibiotics) [SULFA (SULFONAMIDE ANTIBIOTICS)] Exam (Inpt) Vital signs and Labs for Last 24 Hours: Temp Pulse Resp BP Pulse Ox O2 Del Method 98.5 F 86 18 117/74 98 Room Air 01/02/24 06:23 01/02/24 06:23 01/02/24 06:23 01/02/24 06:23 01/02/24 06:00 01/02/24 06:23 Laboratory Results - last 24 hr 01/02/24 04:17: WBC 10.9 H, RBC 3.67 L, Hgb 12.0 L, Hct 36.1 L, MCV 98.2, MCH 32.6 H, MCHC 33.2, RDW 14.2, Plt Count 408, MPV 7.6, Neut % (Auto) 84.7 H, Lymph % (Auto) 11.1, [place] % (Auto) 2.8, Eos % (Auto) 1.1, Baso % (Auto) 0.2, Neut # (Auto) 9.2 H, Lymph # (Auto) 1.2, [place] # (Auto) 0.3, Eos # (Auto) 0.1, Baso # (Auto) 0.0, Sodium 130 L, Potassium 3.3 L, Chloride 97 L, Carbon Dioxide 27, Anion Gap 9.3, BUN 11, Creatinine 0.90, Estimated Creat Clear 73, Estimated GFR 64, Est GFR ( Amer) 77, Glucose 104 H, Calcium 7.8 L, Total Bilirubin 0.9, AST 19, ALT 17, Alkaline Phosphatase 94, Total Protein 5.9 L, Albumin 2.7 L, Globulin 3.2, Albumin/Globulin Ratio 0.8 L, Lipase 22 L 01/02/24 05:49: Urine Color Yellow, Urine Appearance Sl cloudy, Urine pH 6.5, Ur Specific [place] <= 1.005, Urine Protein Trace, Urine Glucose (UA) Negative, Urine Ketones Negative, Urine Blood 2+, Urine Nitrate Negative, Urine Bilirubin Negative, Urine Urobilinogen 0.2, Ur Leukocyte Esterase Trace, Urine RBC Occasional, Urine WBC Occasional, Ur Squamous Epith Cells 3-5, Urine Bacteria Trace I & O for Labs for Last 24 Hours: Intake & Output 12/30/23 12/31/23 01/01/24 01/02/24 23:59 23:59 23:59 23:59 Weight 154 lb Constitutional: mild distress and cooperative Head: Present normocephalic and atraumatic ENT exam ED: Present normal exam, normal oropharynx and mucous membranes moist Neck: Present normal inspection, full ROM and trachea midline Respiratory: Present CTA bilaterally; Absent accessory muscle use Cardiac: Present Reg Rate and Rhythm GI: Present distention, tenderness, guarding, rebound and normal bowel sounds; Absent rigidity Comments:: Scattered lap scars Rectal (female): Present deferred (female): Present deferred Extremities: Present normal inspection Skin: Present intact and dry; Absent cyanosis or erythema Neuro: Present Cranial Nerve 2-12 Intact, awake and oriented x 3 Results Labs 01/02/24 04:17 01/02/24 04:17 Labs: Laboratory Results - last 24 hr 01/02/24 04:17: WBC 10.9 H, RBC 3.67 L, Hgb 12.0 L, Hct 36.1 L, MCV 98.2, MCH 32.6 H, MCHC 33.2, RDW 14.2, Plt Count 408, MPV 7.6, Neut % (Auto) 84.7 H, Lymph % (Auto) 11.1, [place] % (Auto) 2.8, Eos % (Auto) 1.1, Baso % (Auto) 0.2, Neut # (Auto) 9.2 H, Lymph # (Auto) 1.2, [place] # (Auto) 0.3, Eos # (Auto) 0.1, Baso # (Auto) 0.0, Sodium 130 L, Potassium 3.3 L, Chloride 97 L, Carbon Dioxide 27, Anion Gap 9.3, BUN 11, Creatinine 0.90, Estimated Creat Clear 73, Estimated GFR 64, Est GFR ( Amer) 77, Glucose 104 H, Calcium 7.8 L, Total Bilirubin 0.9, AST 19, ALT 17, Alkaline Phosphatase 94, Total Protein 5.9 L, Albumin 2.7 L, Globulin 3.2, Albumin/Globulin Ratio 0.8 L, Lipase 22 L 01/02/24 05:49: Urine Color Yellow, Urine Appearance Sl cloudy, Urine pH 6.5, Ur Specific [place] <= 1.005, Urine Protein Trace, Urine Glucose (UA) Negative, Urine Ketones Negative, Urine Blood 2+, Urine Nitrate Negative, Urine Bilirubin Negative, Urine Urobilinogen 0.2, Ur Leukocyte Esterase Trace, Urine RBC Occasional, Urine WBC Occasional, Ur Squamous Epith Cells 3-5, Urine Bacteria Trace Assessment and Plan *Assessment and plan (1) Perforated sigmoid colon: Status: Acute Category: Medical Code(s): K63.1 - Perforation of intestine (nontraumatic) (2) Ulcerative colitis: Status: Acute Qualifiers: Digestive disease complication type: with abscess Ulcerative colitis location: unspecified ulcerative colitis location Qualified Code(s): K51.914 - Ulcerative colitis, unspecified with abscess Category: Medical Code(s): K51.90 - Ulcerative colitis, unspecified, without complications (3) Crohn's disease: Status: Acute Qualifiers: Digestive disease complication type: with abscess Gastrointestinal tract location: large intestine Qualified Code(s): K50.114 - Crohn's disease of large intestine with abscess Category: Medical Code(s): K50.90 - Crohn's disease, unspecified, without complications (4) HTN (hypertension): Status: Acute Qualifiers: Hypertension type: primary hypertension Qualified Code(s): I10 - Essential (primary) hypertension Category: Medical Code(s): I10 - Essential (primary) hypertension (5) Hypothyroidism: Status: Acute Category: Medical Code(s): E03.9 - Hypothyroidism, unspecified Plan 58-year-old female with likely sigmoid perforation, clinical peritonitis, and pneumoperitoneum. Will proceed emergently to the operating room for exploratory laparotomy, possible bowel resection, possible ostomy. Received IV Zosyn in the ER. 40 mg of Lovenox on-call to the OR. The risk, benefits, and alternatives to procedure were discussed at length with the patient and her , including but not limited to: Infection, bleeding, heart attack, stroke, , need for colostomy, need for future surgery, bowel obstruction, ileus, venous thromboembolism, pulmonary complications. They asked questions which I answered, and she gave informed consent for the procedure.
--- NOTE | 2024-01-02 09:30 | HMH.PHAINT1 ---
Pharmacy Intervention Comments: MEDICATION RECONCILIATION COMPLETE USING EXTERNAL PHARMACY FILL HISTORY.
--- NOTE | 2024-01-02 09:32 | P.OP_ITS ---
Date of procedure: 01/02/24 Pre-op Diagnosis:: Pneumoperitoneum, peritonitis Post-op Diagnosis:: Same Procedure performed:: Laparotomy with sigmoid colon resection and creation of end colostomy (Hopper's type procedure) Surgeon:: Hipolito Jackson MD Sr. Director Product Management(s):: Marge Ferrer MD DIVERSIFIED CROPS II FARMWORKER:: Darrion Jesusarlet Anesthesia: GETA Estimated blood loss (mL): 50 Operative findings:: She had a perforated phlegmonous type masslike lesion in the distal sigmoid colon Operative note:: Consent was obtained patient was taken to the operating room. She was given preoperative intravenous antibiotic. In the operating room she was placed in a supine position. General anesthesia was induced via endotracheal tube. Lee catheter was placed. Abdomen was prepped and draped in the standard surgical fashion. Low midline laparotomy incision was made. Dissection was carried down through subcutaneous tissues and fascia. Exposure was achieved. There were a few adhesions from prior gynecologic surgery which were taken down using electrocautery. Palpation was then carried out in the pelvis and there was relatively large inflammatory mass at the distal sigmoid colon consistent with complicated inflammatory bowel disease perforation. Exposure and retraction was achieved. Dissection was carried out mobilizing the colon by dividing the white line of [place] laterally. The proximal sigmoid colon appeared to be somewhat edematous and mildly inflamed but viable. The colon was divided at this site with a LILIAN 75 type stapling device. Dissection was then carried out scoring the peritoneum. The mesocolon was then carefully divided using the Enseal device down to the distal rectosigmoid region which appeared to be edematous but viable without appreciable inflammation. The rectosigmoid region was then divided with the contour stapling device. Sigmoid colon was then able to be passed off as a specimen. Irrigation was carried out of the pelvis and the inflammatory phlegmonous cavity. Attention was then turned to mobilization of the descending colon for creation of end colostomy. Peritoneum was divided laterally. A few of the branching vessels to the colon were divided with the Enseal device to allow for mobilization of the colon. The proximal colon was viable but there was some appreciable inflammation at the site. The staple line actually dehisced due to the inflammation and there was oversewn temporarily to allow for mobilization of the colon and colostomy creation with a running 2-0 Vicryl suture. Circular incision was made in the right lateral abdomen using electrocautery and dissection was carried down through subcutaneous tissues to the fascia excising a core of subcutaneous tissue to create the colostomy trephine. Anterior rectus fascia was incised in a cruciate fashion and rectus muscle was retracted. Posterior fascia was incised. The colostomy site was stretched to allow for passage of the colon as the colon was somewhat edematous. The colon was delivered through the colostomy trephine side. There were a couple of 2-0 Vicryl's placed posteriorly to the surrounding peritoneum. Serous sutures were placed to the anterior fascia using 2-0 Vicryl. At this time attention was turned to closure of the midline. Abdomen was thoroughly irrigated and aspirated until clear. There was good hemostasis. 2 KAM type drains were placed to exit through the left lower abdominal wall. Superior drain was placed within the phlegmon abscess pocket and inferior KAM drain was placed within the pelvis. These were ultimately secured to the skin with 2-0 nylon suture. Fascia was then closed with running #2 Novafil x 2. Subcutaneous tissues were irrigated. Skin was closed with gayathri. Clean dry sterile dressing was applied to the midline. Attention was turned to colostomy maturation. The previously placed suture was excised. Several 3-0 chromic sutures were placed circumferentially around the colostomy suturing the skin to the deeper serosa and then full-thickness of the colon. Circumferentially around the colostomy several 3-0 chromic sutures were placed for maturation. Colostomy appliance was then applied. Condition: stable Disposition: PACU Complications:: None immediately apparent
--- NOTE | 2024-01-02 09:51 | EXP.ANES.I ---
[facility] Anesthesia Record Part I Anesthesia Record I Intake, IV Amount: 2,000 Hydration: Adequate Estimated blood loss (mL): 50 Urine output (mL): 800 Blood Products used (#): none Blood Pressure: 111/72 SaO2: 96 Pulse Rate: 88 Airway Patency: Patent Respiratory Rate: 16 Temperature: 99.5 F Patient is:: Drowsy and Stable Stable to PACU at:: 09:35
[2024-01-02] MEDS: HYDROMORPHONE 2MG/ML SYRINGE 0.5 MG IV ×2 (09:56→10:05)
[2024-01-02 09:58] LABS: Microscopic,Cath URINE MICROSCOPIC (MICROSCOPIC)
[2024-01-02 10:02] LABS: Appearance,Urine/Cath CLEAR (Clear); Bilirubin,Cath Negative (Negative); Blood, Urine/Cath 2+ (Negative); Color,Urine/Cath YELLOW (Yellow); Glucose,Urine/Cath (UA) Negative (Negative); Ketones,Urine/Cath Negative (Negative); Leukocyte Esterase,Cath Negative (Negative); Nitrate,Cath Negative (Negative); PH,Urine/Cath 6.5 (5.0-8.5); Protein,Urine/Cath Negative (Negative); Specific Gravity, Urine/Cath <= 1.005 (1.005-1.030); Urobilinogen,Cath 0.2 EU/dl (0.2)
[2024-01-02 10:06] LABS: RBC,Urine/Cath Occasional # /hpf (0-3)
--- NOTE | 2024-01-02 10:12 | PC.NURSE ---
Patient arrived to the floor at this time via stretcher with OR staff
[2024-01-02] MEDS: PIPERACILLIN/TAZO 3.375 GM in 0.9 % SODIUM CHLORIDE 50 ML IV ×2 (10:32→16:47)
[2024-01-02] MEDS: FLUCONAZOLE IN NACL,ISO-OSM 200 MG/100 ML PIGGYBACK 50 MG IV (14:53)
--- NOTE | 2024-01-02 15:40 | EXP.HP ---
History of Present Illness *Admission Date: 01/02/24 *Reason for visit:: abdominal pain PFSH PFS Disclaimer: The information contained in this section may have been updated after the patient was seen, as this information can be updated by other users. Medical History (Updated 01/02/24 @ 09:40 by Marge Ferrer MD) Hypothyroidism HTN (hypertension) Ulcerative colitis Crohn disease Parotitis Facial swelling Surgical History (Updated 01/02/24 @ 09:37 by Marge Ferrer MD) Hx of colonoscopy S/P laparoscopic hysterectomy H/O breast augmentation Social History (Updated 01/02/24 @ 10:49 by Monet Goff RN) Smoking Status: Never smoker alcohol intake: current alcohol intake frequency: a few times a month counseling provided: none substance use type: denies use current occupational status: unemployed Travel in the last 8 weeks: None household members: spouse housing: house current occupational exposures/hazards: No caffeine: Yes Review of Systems Review of Systems Review of systems:: pertinent systems reviewed and negative unless documented below Meds Home Medications and Allergies Home Medications Medication Instructions Recorded Confirmed Type progesterone micronized 100 mg 200 mg PO HS 10/07/20 01/02/24 History capsule losartan 50 mg-hydrochlorothiazide 1 tab PO DAILY #30 tabs 11/27/22 01/02/24 Rx 12.5 mg tablet thyroid (pork) 60 mg tablet (FISHING FLOATS ASSEMBLER 60 mg PO DAILY 12/15/23 01/02/24 History Thyroid) New Prescriptions to Start Prescriptions: Allergies Allergy/AdvReac Type Severity Reaction Status Date / Time codeine [CODEINE] Allergy Mild Verified 12/15/23 16:33 Sulfa (Sulfonamide Allergy Mild Verified 12/15/23 16:33 Antibiotics) [SULFA (SULFONAMIDE ANTIBIOTICS)] Exam Data for Last 24 hours Vital signs and Labs for Last 24 Hours: Temp Pulse Resp BP Pulse Ox O2 Del Method O2 Flow Rate 97.5 F L 70 20 93/62 L 100 Room Air 1 01/02/24 12:00 01/02/24 15:00 01/02/24 15:00 01/02/24 15:00 01/02/24 15:00 01/02/24 15:05 01/02/24 15:00 Laboratory Results - last 24 hr 01/02/24 04:17: WBC 10.9 H, RBC 3.67 L, Hgb 12.0 L, Hct 36.1 L, MCV 98.2, MCH 32.6 H, MCHC 33.2, RDW 14.2, Plt Count 408, MPV 7.6, Neut % (Auto) 84.7 H, Lymph % (Auto) 11.1, [place] % (Auto) 2.8, Eos % (Auto) 1.1, Baso % (Auto) 0.2, Neut # (Auto) 9.2 H, Lymph # (Auto) 1.2, [place] # (Auto) 0.3, Eos # (Auto) 0.1, Baso # (Auto) 0.0, Sodium 130 L, Potassium 3.3 L, Chloride 97 L, Carbon Dioxide 27, Anion Gap 9.3, BUN 11, Creatinine 0.90, Estimated Creat Clear 73, Estimated GFR 64, Est GFR ( Amer) 77, Glucose 104 H, Calcium 7.8 L, Total Bilirubin 0.9, AST 19, ALT 17, Alkaline Phosphatase 94, Total Protein 5.9 L, Albumin 2.7 L, Globulin 3.2, Albumin/Globulin Ratio 0.8 L, Lipase 22 L 01/02/24 05:49: Urine Color Yellow, Urine Appearance Sl cloudy, Urine pH 6.5, Ur Specific [place] <= 1.005, Urine Protein Trace, Urine Glucose (UA) Negative, Urine Ketones Negative, Urine Blood 2+, Urine Nitrate Negative, Urine Bilirubin Negative, Urine Urobilinogen 0.2, Ur Leukocyte Esterase Trace, Urine RBC Occasional, Urine WBC Occasional, Ur Squamous Epith Cells 3-5, Urine Bacteria Trace 01/02/24 06:56: Urine Color Yellow, Urine Appearance Clear, Urine pH 6.5, Ur Specific [place] <= 1.005, Urine Protein Negative, Urine Glucose (UA) Negative, Urine Ketones Negative, Urine Blood 2+, Urine Nitrate Negative, Urine Bilirubin Negative, Urine Urobilinogen 0.2, Ur Leukocyte Esterase Negative, Urine RBC Occasional, Urine WBC None, Ur Squamous Epith Cells None, Urine Bacteria None I & O for Last 24 hours: Intake & Output 12/30/23 12/31/23 01/01/24 01/02/24 23:59 23:59 23:59 23:59 Intake Total 1999 Output Total 0 / 0 Balance 1999 Weight 69.853 kg Constitutional Constitutional: no acute distress *Routine HEENT Exam Head: Present normocephalic Eye: Present EOMI and PERRL ENT: Present mucous membranes moist *Routine Neck Exam Neck: Present supple; Absent lymphadenopathy *Routine Respiratory Exam Respiratory: Present CTA bilaterally *Routine Cardiovascular Exam Cardiovascular: Present RRR *Routine Abdominal Exam Abdominal: Present soft and normoactive bowel sounds; Absent tenderness Comments: colostomy bag attached *Routine Rectal Exam Rectal:: deferred *Routine Genitalia Exam Genitalia:: deferred *Routine Extremities Exam Extremities: Absent cyanosis, clubbing or edema *Routine Skin Exam Skin: Present warm; Absent rash *Routine Neurological Exam Neurological: Present alert and oriented X3 Assessment and Plan *Assessment and plan (1) Hypothyroidism: Status: Acute Category: Medical Code(s): E03.9 - Hypothyroidism, unspecified (2) HTN (hypertension): Status: Acute Qualifiers: Hypertension type: primary hypertension Qualified Code(s): I10 - Essential (primary) hypertension Category: Medical Code(s): I10 - Essential (primary) hypertension (3) Perforated sigmoid colon: Status: Acute Category: Medical Code(s): K63.1 - Perforation of intestine (nontraumatic) Plan Patient is a 58-year-old female with past medical history of hypothyroidism hypertension inflammatory bowel disease who presents to the hospital due to significant abdominal pain. According to the patient she has been having abdominal pain for past 1 week however it significantly gotten worse yesterday evening and pain was unbearable 10/10 in intensity, generalized, patient otherwise denies fevers. On further evaluation in the emergency department patient was noted to have bowel perforation on CT abdomen pelvis. Assessment and plan Perforation of sigmoid colon Pneumoperitoneum Status post surgery with colostomy formation N.p.o. for now, advance diet as tolerated Started on IV Zosyn, IV fluids Pain control General surgery following Colostomy care Check blood cultures Monitor hemoglobin post surgery History of hypertension As needed hydralazine ordered Hyponatremia likely nutritional Continue IV normal saline History of hypothyroidism Check TSH Resume home thyroid when able DVT prophylaxis-Lovenox
[2024-01-02] MEDS: HYDROMORPHONE 2MG/ML SYRINGE 2 MG IV ×2 (15:54→21:01)
[2024-01-02] MEDS: 0.9 % SODIUM CHLORIDE 1000ML 1,000 ML 75 ML IV (16:40)
[2024-01-02 17:29] LABS: Thyroid Stimulating Hormone 1.49 uIU/mL (0.465-4.68)
[2024-01-03] VITALS (14 sets, daily range): BP systolic 81–118; BP diastolic 50–77; PULSE 62–89; RESP 15–20; TEMP 36.4–36.6; O2SAT 91–100; BMI 24.7
[2024-01-03] MEDS: PIPERACILLIN/TAZO 3.375 GM in 0.9 % SODIUM CHLORIDE 50 ML IV ×3 (01:33→17:30)
[2024-01-03] MEDS: HYDROMORPHONE 2MG/ML SYRINGE 2 MG IV ×5 (01:33→17:25)
--- NOTE | 2024-01-03 01:37 | PC.NURSE ---
Patient was complaining that her Lee was hurting and requested it to be taken out. Lee was removed without difficulty. Educated patient to call out when she needed to void.
--- NOTE | 2024-01-03 05:19 | PC.NURSE ---
Patient has had a decent night. Has not slept but maybe 2hrs total. She did request the myers to be removed as it was hurting her. See other nursing note. Patient then expressed that she was sad and depressed. RN sat and talked with patient and allowed the patient to express her concerns and feelings. RN then offered to allow the patient to get up and walk to see if it would help her mood. Patient was extremely happy to get up and she did walk 2 laps in the hallway and then bushed her teeth and hair and washed her face. She stated she felt much better. Patient was medicated for pain per SEP. barely any drainage from her KAM drains and Ostomy has had gas in it but that is all. no other complaints
--- NOTE | 2024-01-03 06:53 | EXP.SURG.PN ---
Subjective Narrative: Patient has had some expected postoperative pain. No nausea. She has been ambulating in the halls. Exam Data for Last 24 hours Vital signs and Labs for Last 24 Hours: Temp Pulse Resp BP Pulse Ox O2 Del Method O2 Flow Rate 97.8 F 66 15 83/60 L 92 L Room Air 1 01/03/24 04:00 01/03/24 06:00 01/03/24 06:00 01/03/24 06:00 01/03/24 06:00 01/03/24 06:48 01/02/24 15:00 Laboratory Results - last 24 hr 01/02/24 04:17: TSH 1.49 01/02/24 05:49: Urine RBC Occasional, Urine WBC Occasional, Ur Squamous Epith Cells 3-5, Urine Bacteria Trace 01/02/24 06:56: Urine Color Yellow, Urine Appearance Clear, Urine pH 6.5, Ur Specific [place] <= 1.005, Urine Protein Negative, Urine Glucose (UA) Negative, Urine Ketones Negative, Urine Blood 2+, Urine Nitrate Negative, Urine Bilirubin Negative, Urine Urobilinogen 0.2, Ur Leukocyte Esterase Negative, Urine RBC Occasional, Urine WBC None, Ur Squamous Epith Cells None, Urine Bacteria None I & O for Last 24 hours: Intake & Output 12/31/23 01/01/24 01/02/24 01/03/24 11:59 11:59 11:59 11:59 Intake Total 1999 530 / 530 Output Total 0 / 0 685 / 685 Balance 1999 -155 / -155 Weight 154 lb 153 lb 15.992 oz Microbiology Reports for the Last 24 Hours: Microbiology 01/02/24 05:27 Blood Blood Culture - Preliminary NO GROWTH AFTER 24 HOURS 01/02/24 05:20 Blood Blood Culture - Preliminary NO GROWTH AFTER 24 HOURS *Routine Abdominal Exam Abdominal: Present soft and ostomy Comments: No appreciable output from colostomy. KAM drains showing serous sanguinous drainage. Progress Note: A&P Assessment and plan (1) Hypothyroidism: Status: Acute (2) HTN (hypertension): Status: Acute (3) Perforated sigmoid colon: Status: Acute Assessment and plan: Continue n.p.o. except for ice chips and sips of liquids at this time. Continue antibiotics (Zosyn and Diflucan).
[2024-01-03] MEDS: ONDANSETRON 4MG/2ML VIAL 4 MG IV (06:56)
[2024-01-03 07:04] LABS: Basophils % 0.1 % (0.1-2.0); Hematocrit 29.6 % (37.0-47.0); Hemoglobin 10.6 g/dL (12.2-16.2); Lymphocytes # 0.8 K/mm3 (0.7-4.5); Lymphocytes % 5.8 % (10-50); Mean Corpuscular HGB Conc 35.9 g/dL (31.8-35.4); Mean Corpuscular Hemoglobin 37.4 pg (27.0-31.2); Mean Platelet Volume 7.7 fl (7.4-10.4); Monocytes # 0.3 K/mm3 (0.1-1.0); Monocytes % 2.4 % (1.7-9.3); Neutrophils # 12.7 K/mm3 (1.8-7.8); Neutrophils % 91.8 % (37.0-80.0); Platelet Count 423 K/mm3 (142-424); Red Blood Count 2.84 M/mm3 (4.20-5.40); Red Cell Distribution Width 14.2 % (11.5-17.5); White Blood Count 13.8 K/mm3 (4.8-10.8)
[2024-01-03 07:09] LABS: Alanine Aminotransferase 18 U/L (12-78); Albumin Level 2.4 g/dl (3.5-5.0); Albumin/Globulin Ratio 0.8 (1.1-1.8); Alkaline Phosphatase 93 U/L (38-126); Anion Gap 9.5 mEq/L (5-15); Aspartate Amino Transferase 22 U/L (14-36); Bilirubin,Total 0.6 mg/dl (0.2-1.3); Blood Urea Nitrogen 9 mg/dl (7-17); Calcium 7.3 mg/dl (8.4-10.2); Carbon Dioxide 30 mmol/L (22.0-30.0); Chloride 99 mmol/L (98-107); Creatinine Clearance Estimated 82 mL/min (50-200); Estimated Glomerular Filt Rate 73 ml/min (>60); GFR (African American) 89 ML/MIN (>60); Globulin 3.1 g/dL (1.3-3.2); Glucose 114 mg/dl (74-100); Potassium 3.5 mmoL/L (3.5-5.1); Sodium 135 mmol/L (136-145); Total Protein,Serum 5.5 g/dl (6.3-8.2)
[2024-01-03 07:12] LABS: MANUAL DIFFERENTIAL MANUAL DIFFERENTIAL (MANUAL DIFF)
[2024-01-03 08:47] LABS: Lymphocytes % 11 % (10-50); Monocytes % 2 % (2-9); Neutrophils % 87 % (42-76); Total Cells Counted 100
[2024-01-03 08:48] LABS: Macrocytosis 1+; Platelet Estimate Normal
[2024-01-03] MEDS: LACTATED RINGERS 1000ML 1,000 ML 125 ML IV (09:29)
--- NOTE | 2024-01-03 11:38 | SW/DCPLANNER ---
Addendum entered by Esther Tarango 01/04/24 09:13: Ruben young/ [facility] verified that he has received patient form for colostomy starter pack and it will arrive at patient's house by Wednesday01/07/24. Original Note: I spoke w/ patient regarding colostomy products. Patient is agreeable for her information to be faxed to [facility] for a starter pack and products.
[2024-01-03] MEDS: FLUCONAZOLE IN NACL,ISO-OSM 200 MG/100 ML PIGGYBACK 50 MG IV (12:03)
[2024-01-03] MEDS: NP THYROID 60 MG 1 EACH PO (12:30)
--- NOTE | 2024-01-03 16:11 | EXP.ACUTE.PN ---
Subjective *Date: 01/03/24 *Time: 16:54 Medical Exam Vital signs and Labs for Last 24 Hours: Vital Signs Temp Pulse Pulse Resp BP Pulse Ox O2 Del Method 01/03/24 16:00 76 20 81/52 L 93 L Room Air 01/03/24 14:52 Room Air 01/03/24 14:00 63 18 96/56 L 100 Nasal Cannula 01/03/24 13:00 Room Air 01/03/24 12:00 70 01/03/24 12:00 97.7 F 01/03/24 12:00 64 16 88/50 L 97 Room Air 01/03/24 11:00 Room Air 01/03/24 10:00 64 18 86/52 L 97 Room Air 01/03/24 08:34 80 01/03/24 08:00 66 20 118/77 93 L Room Air 01/03/24 07:50 Room Air 01/03/24 06:48 Room Air 01/03/24 06:00 66 15 83/60 L 92 L Room Air 01/03/24 05:00 Room Air 01/03/24 04:00 97.8 F 01/03/24 04:00 70 01/03/24 04:00 97.7 F 62 20 94/62 L 92 L Room Air 01/03/24 04:00 Room Air 01/03/24 03:00 Room Air 01/03/24 02:00 76 16 87/61 L 91 L Room Air 01/03/24 01:00 Room Air 01/03/24 00:00 65 01/03/24 00:00 97.5 F L 75 20 98/63 L 96 Room Air 01/02/24 23:00 Room Air 01/02/24 22:00 70 16 96/69 L 96 Room Air 01/02/24 21:00 Room Air 01/02/24 20:00 60 01/02/24 20:00 98.6 F 64 18 96/66 L 96 Room Air 01/02/24 20:00 Room Air 01/02/24 18:38 Room Air 01/02/24 18:00 65 20 103/61 L 96 Room Air 01/02/24 17:59 76 20 99/74 L 93 L Room Air 01/02/24 17:05 Room Air 01/02/24 17:00 76 18 99/74 L 93 L Room Air O2 Flow Rate 01/03/24 16:00 01/03/24 14:52 01/03/24 14:00 2 01/03/24 13:00 01/03/24 12:00 01/03/24 12:00 01/03/24 12:00 01/03/24 11:00 01/03/24 10:00 01/03/24 08:34 01/03/24 08:00 01/03/24 07:50 01/03/24 06:48 01/03/24 06:00 01/03/24 05:00 01/03/24 04:00 01/03/24 04:00 01/03/24 04:00 01/03/24 04:00 01/03/24 03:00 01/03/24 02:00 01/03/24 01:00 01/03/24 00:00 01/03/24 00:00 01/02/24 23:00 01/02/24 22:00 01/02/24 21:00 01/02/24 20:00 01/02/24 20:00 01/02/24 20:00 01/02/24 18:38 01/02/24 18:00 01/02/24 17:59 01/02/24 17:05 01/02/24 17:00 Intake and Output 01/03/24 01/03/24 01/03/24 07:59 15:59 23:59 Intake Total 578 / 578 Output Total 300 / 630 330 / 630 Balance -300 / -52 248 / -52 Intake: Intake, Total IV Amount 578 / 578 Lactated Ringers 1000ML 1,000 578 / 578 ml @ 125 mls/hr IV .Q8H [facility] Rx# :[id number] Output: Output, Urine Amount 300 / 300 Output, Urine Amount (Catheter) 300 / 300 [place] 300 / 300 Output, Drainage Amount 30 / 30 Anterior Lateral Abdomen 20 / 20 Anterior Medial Abdomen 10 / 10 Other: Number of Voids 1 Number of Unmeasured Voids 1 Weight 69.853 kg 69.85 kg Patient Weight 01/03/24 23:59 Weight 69.85 kg Laboratory Results - last 24 hr 01/02/24 04:17: TSH 1.49 01/03/24 05:37: WBC 13.8 H D, RBC 2.84 L, Hgb 10.6 L, Hct 29.6 L, MCV 104.0 H, MCH 37.4 H, MCHC 35.9 H, RDW 14.2, Plt Count 423, MPV 7.7, Neut % (Auto) 91.8 H, Lymph % (Auto) 5.8 L, [place] % (Auto) 2.4, Eos % (Auto) 0.0 L, Baso % (Auto) 0.1, Neut # (Auto) 12.7 H, Lymph # (Auto) 0.8, [place] # (Auto) 0.3, Eos # (Auto) 0.0, Baso # (Auto) 0.0, Total Counted 100, Neutrophils % (Manual) 87 H, Lymphocytes % (Manual) 11, Monocytes % (Manual) 2, Platelet Estimate Normal, Macrocytosis 1+, Sodium 135 L, Potassium 3.5, Chloride 99, Carbon Dioxide 30, Anion Gap 9.5, BUN 9, Creatinine 0.80, Estimated Creat Clear 82, Estimated GFR 73, Est GFR ( Amer) 89, Glucose 114 H, Calcium 7.3 L, Total Bilirubin 0.6, AST 22, ALT 18, Alkaline Phosphatase 93, Total Protein 5.5 L, Albumin 2.4 L D, Globulin 3.1, Albumin/Globulin Ratio 0.8 L I & O for Labs for Last 24 Hours: Intake & Output 12/31/23 01/01/24 01/02/24 01/03/24 23:59 23:59 23:59 23:59 Intake Total 2530 / 2530 578 / 578 Output Total 385 / 685 630 / 630 Balance 2145 / 1845 -52 / -52 Weight 69.853 kg 69.85 kg Microbiology Reports for the Last 24 Hours: Microbiology 01/02/24 06:56 Abdomen Abscess Culture - Preliminary NO GROWTH AFTER 24 HOURS 01/02/24 05:27 Blood Blood Culture - Preliminary NO GROWTH AFTER 24 HOURS 01/02/24 05:20 Blood Blood Culture - Preliminary NO GROWTH AFTER 24 HOURS Assessment and Plan *Assessment and plan (1) Perforated sigmoid colon: Status: Acute Category: Medical Code(s): K63.1 - Perforation of intestine (nontraumatic) (2) S/P partial resection of colon: Status: Acute Category: Surgical Code(s): Z90.49 - Acquired absence of other specified parts of digestive tract (3) S/P colostomy: Status: Acute Category: Surgical Code(s): Z93.3 - Colostomy status (4) Peritonitis: Status: Acute Category: Medical Code(s): K65.9 - Peritonitis, unspecified (5) Hypothyroidism: Status: Acute Category: Medical Code(s): E03.9 - Hypothyroidism, unspecified (6) HTN (hypertension): Status: Acute Qualifiers: Hypertension type: primary hypertension Qualified Code(s): I10 - Essential (primary) hypertension Category: Medical Code(s): I10 - Essential (primary) hypertension (7) Ulcerative colitis: Status: Acute Qualifiers: Digestive disease complication type: with abscess Ulcerative colitis location: unspecified ulcerative colitis location Qualified Code(s): K51.914 - Ulcerative colitis, unspecified with abscess Category: Medical Code(s): K51.90 - Ulcerative colitis, unspecified, without complications Plan Patient is a 58-year-old female with past medical history of hypothyroidism hypertension inflammatory bowel disease who presents to the hospital due to significant abdominal pain. According to the patient she has been having abdominal pain for past 1 week however it significantly gotten worse yesterday evening and pain was unbearable 10/10 in intensity, generalized, patient otherwise denies fevers. On further evaluation in the emergency department patient was noted to have bowel perforation on CT abdomen pelvis. Perforation of sigmoid colon with Pneumoperitoneum/peritonitis s/p partial resection of colon with creation of colostomy -Status post surgery 01/01 with partial bowel resection and creation of colostomy -Surgery consulted and assisting with care. Discussed case this morning. Advance diet slowly with clear liquids today. Continuing to await pathology from segment of sigmoid colon removed. -Continue fluconazole 200 mg IV daily, continue Zosyn 3.375 g IV every 8 hours -Zofran 4 mg IV every 8 hours as needed for nausea -Pain control with Dilaudid 2 mg IV every 3 hours PRN, monitoring for toxicity, has received doses regularly every 3 hours since surgery. -Colostomy care, nursing assisting. - Blood cultures pending, reviewed, negative so far. Wound cultures also remain negative. -Hemoglobin this morning down to 10.6 from 12, white cell count up to 13.8. Repeat CBC, CMP, magnesium ordered for the morning. Obtaining inflammatory markers with CRP History of hypertension: Holding home losartan. Blood pressure soft at this time. Goal MAP greater than 65 Hypothyroid: Continue home [place] Thyroid 60 mg; TSH at goal of 1.49 Full code Clear liquid diet
--- NOTE | 2024-01-03 16:35 | PC.NURSE ---
PT IS RESTING IN BED. ALERT AND ORIENTED X4. TOLERATING SIPS OF CLEARS. PT HAS AMBULATED IN THE [place] SEVERAL TIMES THIS SHIFT. PT HAS AMBULATED TO THE BATHROOM. DRESSING NOTED TO MIDLINE INCISION C/D/I. OSTOMY AND KAM DRAINS NOTED TO LEFT SIDE OF ABDOMEN. TENDERNESS NOTED TO ABDOMEN WITH HYPOACTIVE BOWEL SOUNDS. PASSING FLATUS. LUNG SOUNDS CLEAR. BP HAS BEEN LOW T/O THE SHIFT. MEDICATED PER SEP FOR DISCOMFORT. WILL CONTINUE TO MONITOR.
[2024-01-04] VITALS (9 sets, daily range): BP systolic 82–116; BP diastolic 51–83; PULSE 59–97; RESP 16–20; TEMP 36.5–36.9; O2SAT 96–99; BMI 26.2
[2024-01-04] MEDS: HYDROMORPHONE 2MG/ML SYRINGE 1 MG IV ×4 (00:15→22:07)
[2024-01-04] MEDS: PIPERACILLIN/TAZO 3.375 GM in 0.9 % SODIUM CHLORIDE 50 ML IV ×3 (01:58→18:18)
--- NOTE | 2024-01-04 04:51 | PC.NURSE ---
Pt has been tolerating ice chips and sips of clear liquids this shift. She has ambulated in the hallway X 2. Pt is now voiding without difficulty. She has been medicated X 2 with dilaudid for pain with good effects.
[2024-01-04] MEDS: NP THYROID 60 MG 1 EACH PO (06:21)
[2024-01-04] MEDS: PANTOPRAZOLE 40MG VIAL 40 MG IV ×2 (06:24→21:20)
[2024-01-04 06:41] LABS: Basophils % 0.1 % (0.1-2.0); Eosinophils % 0.3 % (0.1-12.0); Hematocrit 30.9 % (37.0-47.0); Hemoglobin 9.8 g/dL (12.2-16.2); Lymphocytes # 1.4 K/mm3 (0.7-4.5); Lymphocytes % 16.1 % (10-50); Mean Corpuscular HGB Conc 31.6 g/dL (31.8-35.4); Mean Corpuscular Hemoglobin 32.8 pg (27.0-31.2); Mean Corpuscular Volume 103.9 fl (81-99); Mean Platelet Volume 7.5 fl (7.4-10.4); Monocytes # 0.3 K/mm3 (0.1-1.0); Monocytes % 3.3 % (1.7-9.3); Neutrophils % 80.1 % (37.0-80.0); Platelet Count 536 K/mm3 (142-424); Red Blood Count 2.98 M/mm3 (4.20-5.40); Red Cell Distribution Width 14.3 % (11.5-17.5); White Blood Count 8.7 K/mm3 (4.8-10.8)
[2024-01-04 06:54] LABS: Chloride 103 mmol/L (98-107); Potassium 3.7 mmoL/L (3.5-5.1); Sodium 135 mmol/L (136-145)
[2024-01-04 06:56] LABS: Alanine Aminotransferase 19 U/L (12-78); Aspartate Amino Transferase 31 U/L (14-36); Blood Urea Nitrogen 9 mg/dl (7-17); Creatinine Clearance Estimated 78 mL/min (50-200); Estimated Glomerular Filt Rate 64 ml/min (>60); GFR (African American) 77 ML/MIN (>60)
[2024-01-04 06:57] LABS: Albumin Level 2.4 g/dl (3.5-5.0); Albumin/Globulin Ratio 0.8 (1.1-1.8); Alkaline Phosphatase 81 U/L (38-126); Anion Gap 4.7 mEq/L (5-15); Bilirubin,Total 0.3 mg/dl (0.2-1.3); Calcium 7.4 mg/dl (8.4-10.2); Carbon Dioxide 31 mmol/L (22.0-30.0); Glucose 87 mg/dl (74-100); Magnesium 2.6 mg/dl (1.6-2.3); Total Protein,Serum 5.4 g/dl (6.3-8.2)
[2024-01-04 07:02] LABS: C-Reactive Protein 166.1 mg/L (0-4)
--- NOTE | 2024-01-04 07:40 | P.PN_ITS ---
Subjective Narrative: Patient has been ambulating. No nausea. Did have some heartburn relieved with IV Protonix. Taking some limited sips of clear liquids. Exam Data for Last 24 hours Vital signs and Labs for Last 24 Hours: Temp Pulse Resp BP Pulse Ox O2 Del Method O2 Flow Rate 98.1 F 71 18 93/62 L 96 Room Air 2 01/04/24 04:00 01/04/24 06:00 01/04/24 06:00 01/04/24 06:00 01/04/24 06:00 01/04/24 06:32 01/03/24 18:43 Laboratory Results - last 24 hr 01/03/24 05:37: Total Counted 100, Neutrophils % (Manual) 87 H, Lymphocytes % (Manual) 11, Monocytes % (Manual) 2, Platelet Estimate Normal, Macrocytosis 1+ 01/04/24 05:34: WBC 8.7 D, RBC 2.98 L, Hgb 9.8 L, Hct 30.9 L, MCV 103.9 H, MCH 32.8 H, MCHC 31.6 L, RDW 14.3, Plt Count 536 H D, MPV 7.5, Neut % (Auto) 80.1 H, Lymph % (Auto) 16.1, [place] % (Auto) 3.3, Eos % (Auto) 0.3, Baso % (Auto) 0.1, Neut # (Auto) 7.0, Lymph # (Auto) 1.4, [place] # (Auto) 0.3, Eos # (Auto) 0.0, Baso # (Auto) 0.0, Sodium 135 L, Potassium 3.7, Chloride 103, Carbon Dioxide 31 H, Anion Gap 4.7 L, BUN 9, Creatinine 0.90, Estimated Creat Clear 78, Estimated GFR 64, Est GFR ( Amer) 77, Glucose 87 D, Calcium 7.4 L, Magnesium 2.6 H, Total Bilirubin 0.3, AST 31 D, ALT 19, Alkaline Phosphatase 81, C-Reactive Protein 166.1 H, Total Protein 5.4 L, Albumin 2.4 L, Globulin 3.0, Albumin/Globulin Ratio 0.8 L I & O for Last 24 hours: Intake & Output 01/01/24 01/02/24 01/03/24 01/04/24 11:59 11:59 11:59 11:59 Intake Total 1999 530 / 530 578 / 578 Output Total 0 / 0 985 / 985 45 / 45 Balance 1999 -455 / -455 533 / 533 Weight 154 lb 153 lb 15.992 oz 163 lb Microbiology Reports for the Last 24 Hours: Microbiology 01/02/24 05:27 Blood Blood Culture - Preliminary NO GROWTH AFTER 48 HOURS 01/02/24 05:20 Blood Blood Culture - Preliminary NO GROWTH AFTER 48 HOURS 01/02/24 06:56 Abdomen Abscess Culture - Preliminary NO GROWTH AFTER 24 HOURS *Routine Abdominal Exam Abdominal: Present soft and ostomy Comments: Liquid output from colostomy with gas. Progress Note: A&P Assessment and plan (1) Perforated sigmoid colon: Status: Acute Assessment and plan: Clear liquid diet. Continue antibiotics. Monitor CBC. (2) S/P partial resection of colon: Status: Acute (3) S/P colostomy: Status: Acute (4) Peritonitis: Status: Acute (5) Hypothyroidism: Status: Acute (6) HTN (hypertension): Status: Acute (7) Ulcerative colitis: Status: Acute
--- NOTE | 2024-01-04 10:07 | EXP.ACUTE.PN ---
Subjective *Date: 01/04/24 *Time: 14:59 Interval history: Ambulating around the floor on morning rounds. Having liquid output from ostomy. Advance to clears today with good tolerance. Afebrile. Pain improving. Decrease in pain regimen overnight. Stable on room air. Patient denies any chest pain or shortness of breath. Does complain of some mild abdominal pain today. Medical Exam Vital signs and Labs for Last 24 Hours: Vital Signs Temp Pulse Pulse Resp BP Pulse Ox O2 Del Method 01/04/24 09:00 Room Air 01/04/24 08:00 67 20 97/64 L 98 Room Air 01/04/24 08:00 97.8 F 01/04/24 08:00 98 Room Air 01/04/24 06:32 Room Air 01/04/24 06:00 71 18 93/62 L 96 Room Air 01/04/24 05:00 Room Air 01/04/24 04:00 74 01/04/24 04:00 98.1 F 01/04/24 03:53 71 82/51 L Room Air 01/04/24 03:48 Room Air 01/04/24 02:59 Room Air 01/04/24 02:00 80 18 89/59 L 96 Room Air 01/04/24 01:00 Room Air 01/04/24 00:00 97.8 F 01/04/24 00:00 80 18 116/83 97 Room Air 01/04/24 00:00 59 L 01/03/24 23:00 Room Air 01/03/24 22:00 80 18 86/63 L 95 Room Air 01/03/24 21:00 Room Air 01/03/24 20:00 78 01/03/24 20:00 97.6 F 01/03/24 20:00 95 Room Air 01/03/24 20:00 89 18 101/72 L Room Air 01/03/24 18:43 Nasal Cannula 01/03/24 18:00 66 20 105/70 L 96 Room Air 01/03/24 17:53 97.7 F 01/03/24 17:00 Room Air 01/03/24 16:00 Room Air 01/03/24 16:00 70 01/03/24 16:00 76 20 81/52 L 93 L Room Air 01/03/24 14:52 Room Air 01/03/24 14:00 63 18 96/56 L 100 Nasal Cannula 01/03/24 13:00 Room Air 01/03/24 12:00 70 01/03/24 12:00 97.7 F 01/03/24 12:00 64 16 88/50 L 97 Room Air 01/03/24 11:00 Room Air O2 Flow Rate 01/04/24 09:00 01/04/24 08:00 01/04/24 08:00 01/04/24 08:00 01/04/24 06:32 01/04/24 06:00 01/04/24 05:00 01/04/24 04:00 01/04/24 04:00 01/04/24 03:53 01/04/24 03:48 01/04/24 02:59 01/04/24 02:00 01/04/24 01:00 01/04/24 00:00 01/04/24 00:00 01/04/24 00:00 01/03/24 23:00 01/03/24 22:00 01/03/24 21:00 01/03/24 20:00 01/03/24 20:00 01/03/24 20:00 01/03/24 20:00 01/03/24 18:43 2 01/03/24 18:00 01/03/24 17:53 01/03/24 17:00 01/03/24 16:00 01/03/24 16:00 01/03/24 16:00 01/03/24 14:52 01/03/24 14:00 2 01/03/24 13:00 01/03/24 12:00 01/03/24 12:00 01/03/24 12:00 01/03/24 11:00 Intake and Output 01/03/24 01/04/24 01/04/24 23:59 07:59 15:59 Output Total 15 / 15 0 / 15 Balance -15 / -15 0 / -15 Output: Output, Urine Amount 0 / 0 0 / 0 Output, Drainage Amount 15 / 15 Anterior Lateral Abdomen 10 / 10 Anterior Medial Abdomen 5 / 5 Other: Number of Voids 0 Number of Unmeasured Voids 1 1 Number of Bowel Movements 0 Weight 73.936 kg Patient Weight 01/04/24 23:59 Weight 73.936 kg Laboratory Results - last 24 hr 01/04/24 05:34: WBC 8.7 D, RBC 2.98 L, Hgb 9.8 L, Hct 30.9 L, MCV 103.9 H, MCH 32.8 H, MCHC 31.6 L, RDW 14.3, Plt Count 536 H D, MPV 7.5, Neut % (Auto) 80.1 H, Lymph % (Auto) 16.1, [place] % (Auto) 3.3, Eos % (Auto) 0.3, Baso % (Auto) 0.1, Neut # (Auto) 7.0, Lymph # (Auto) 1.4, [place] # (Auto) 0.3, Eos # (Auto) 0.0, Baso # (Auto) 0.0, Sodium 135 L, Potassium 3.7, Chloride 103, Carbon Dioxide 31 H, Anion Gap 4.7 L, BUN 9, Creatinine 0.90, Estimated Creat Clear 78, Estimated GFR 64, Est GFR ( Amer) 77, Glucose 87 D, Calcium 7.4 L, Magnesium 2.6 H, Total Bilirubin 0.3, AST 31 D, ALT 19, Alkaline Phosphatase 81, C-Reactive Protein 166.1 H, Total Protein 5.4 L, Albumin 2.4 L, Globulin 3.0, Albumin/Globulin Ratio 0.8 L I & O for Labs for Last 24 Hours: Intake & Output 01/01/24 01/02/24 01/03/24 01/04/24 23:59 23:59 23:59 23:59 Intake Total 2530 / 2530 578 / 578 Output Total 385 / 685 630 / 630 Balance 2145 / 1845 -52 / -52 - / -15 Weight 69.853 kg 69.85 kg 73.936 kg Microbiology Reports for the Last 24 Hours: Microbiology 01/02/24 06:56 Abdomen Abscess Culture - Preliminary NO GROWTH AFTER 48 HOURS 01/02/24 05:27 Blood Blood Culture - Preliminary NO GROWTH AFTER 48 HOURS 01/02/24 05:20 Blood Blood Culture - Preliminary NO GROWTH AFTER 48 HOURS Constitutional: Present no acute distress, average body habitus and cooperative Head: Present atraumatic and normocephalic ENT: Present normal exam Respiratory: Present normal respiratory effort; Absent rhonchi, wheezes or crackles Cardiac: Present Reg Rate and Rhythm GI: Present soft, tenderness (Diffuse of her abdomen.) and normal bowel sounds; Absent distention Comments:: Ostomy in place, having liquid output. Extremities: Present normal inspection and full ROM Skin: Present intact; Absent erythema Neuro: Present Grossly Intact, alert, awake, oriented x 3 and moves all extremities Assessment and Plan *Assessment and plan (1) Perforated sigmoid colon: Status: Acute Category: Medical Code(s): K63.1 - Perforation of intestine (nontraumatic) (2) S/P partial resection of colon: Status: Acute Category: Surgical Code(s): Z90.49 - Acquired absence of other specified parts of digestive tract (3) S/P colostomy: Status: Acute Category: Surgical Code(s): Z93.3 - Colostomy status (4) Peritonitis: Status: Acute Category: Medical Code(s): K65.9 - Peritonitis, unspecified (5) Hypothyroidism: Status: Acute Category: Medical Code(s): E03.9 - Hypothyroidism, unspecified (6) HTN (hypertension): Status: Acute Qualifiers: Hypertension type: primary hypertension Qualified Code(s): I10 - Essential (primary) hypertension Category: Medical Code(s): I10 - Essential (primary) hypertension (7) Ulcerative colitis: Status: Acute Qualifiers: Digestive disease complication type: with abscess Ulcerative colitis location: unspecified ulcerative colitis location Qualified Code(s): K51.914 - Ulcerative colitis, unspecified with abscess Category: Medical Code(s): K51.90 - Ulcerative colitis, unspecified, without complications Plan Patient is a 58-year-old female with past medical history of hypothyroidism hypertension inflammatory bowel disease who presents to the hospital due to significant abdominal pain. According to the patient she has been having abdominal pain for past 1 week however it significantly gotten worse yesterday evening and pain was unbearable 10/10 in intensity, generalized, patient otherwise denies fevers. On further evaluation in the emergency department patient was noted to have bowel perforation on CT abdomen pelvis. Status post surgical resection of perforated portion of sigmoid colon. Ostomy created. Showing clinical improvement. Continues to require inpatient management. Slow advancement of diet. Problems addressed as follows: Perforation of sigmoid colon with Pneumoperitoneum/peritonitis s/p partial resection of colon with creation of colostomy -Status post surgery 01/01 with partial bowel resection and creation of colostomy -Surgery consulted and assisting with care. Discussed case this morning. Advance diet slowly with clear liquids today. Continuing to await pathology from segment of sigmoid colon removed. -Continue fluconazole 200 mg IV daily, continue Zosyn 3.375 g IV every 8 hours; Reevaluate antibiotics after 5 days. -White cell count improved to 8.7. Hemoglobin 9.8. CRP elevated at 166. -Zofran 4 mg IV every 8 hours as needed for nausea -De-escalating IV pain control, Dilaudid switched to 1 mg every 4 hours overnight. Received at least 3 doses. Will transition to oral oxycodone 5 mg every 6 hours today. Monitor for toxicity. -Colostomy care, nursing assisting. - Blood cultures pending, reviewed, negative so far. Wound cultures also remain negative. - Repeat CBC, CMP, magnesium ordered for the morning. Obtaining inflammatory markers with CRP History of hypertension: Holding home losartan. Blood pressure soft at this time. Goal MAP greater than 65; blood pressure 97/54 Hypothyroid: Continue home [place] Thyroid 60 mg; TSH at goal of 1.49 Full code Clear liquid diet
[2024-01-04] MEDS: OXYCODONE 5MG IMMEDIATE RELEASE TABLET 5 MG PO ×3 (13:00→21:20)
[2024-01-04] MEDS: FLUCONAZOLE IN NACL,ISO-OSM 200 MG/100 ML PIGGYBACK 50 MG IV (13:00)
--- NOTE | 2024-01-04 17:52 | PC.NURSE ---
Pt tolerating clear liquids better this shift. Pt ambulating with standy-by assist in room and in hallways. Pt passing flatus. Ostomy bag emptied once this shift with 50 out. Pt midline incision dressing C/D/I. Pt has two drains that both have had minimal output. Pt has been medicated per SEP for pain. Pt hair washed by tech this shift. no complaints at this time.
[2024-01-04] MEDS: SODIUM CHLORIDE 0.9% 10ML VIAL 10 ML IV (21:20)
[2024-01-04] MEDS: LACTATED RINGERS 1000ML 1,000 ML 125 ML IV (21:21)
--- NOTE | 2024-01-04 22:08 | CT_ITS ---
PROCEDURE INFORMATION: Exam: CT Abdomen And Pelvis Without Contrast Exam date and time: 01/04/2024 10:40 PM Age: 58 years old Clinical indication: Abdominal pain; Patient HX: Pain on the right side; Additional info: Abd pain S/P colon resection and ostomy TECHNIQUE: Imaging protocol: Computed tomography of the abdomen and pelvis without contrast. Radiation optimization: All CT scans at this facility use at least one of these dose optimization techniques: automated exposure control; mA and/or kV adjustment per patient size (includes targeted exams where dose is matched to clinical indication); or iterative reconstruction. COMPARISON: CT ABDOMEN PELVIS W CON 01/02/2024 4:39 AM FINDINGS: Lungs: Mild bibasilar atelectasis. Diaphragm: Small hiatal hernia. Liver: Normal. No mass. Gallbladder and biliary ducts: Normal. No calcified stones. No ductal dilation. Pancreas: Normal. No ductal dilation. Spleen: Normal. No splenomegaly. Adrenal glands: Normal. No mass. Kidneys and ureters: Normal. No hydronephrosis. Stomach and bowel: Left lower quadrant colostomy. Ventral skin gayathri in place with mild subcutaneous gas. No abdominal wall fluid collections. Mild abdominal wall edema. Appendix: No evidence of appendicitis. Intraperitoneal space: Postsurgical changes in the pelvis with surgical drains terminating in the superior and inferior pelvis. Mild pneumoperitoneum. Diffuse pelvic fat stranding. No abscess. Vasculature: Mild atherosclerotic disease without aneurysm. Status post sigmoidectomy with a left lower quadrant colostomy and Hopper's pouch in the pelvis. No dilated bowel loops. Moderate-sized diverticulum arises superiorly from the 3rd portion of the duodenum. Lymph nodes: Unremarkable. No enlarged lymph nodes. Urinary bladder: Unremarkable as visualized. Reproductive: Unremarkable as visualized. Bones/joints: Bilateral L5 pars defects with 4 mm of grade 1 anterolisthesis of L5 over S1. Moderate L5-S1 degenerative disc disease. Mild lumbar spine levoscoliosis. Soft tissues: Bilateral breast implants in place. IMPRESSION: 1. Expected changes in the lower abdomen and pelvis from recent sigmoidectomy. There is fat stranding and mild pneumoperitoneum with no evidence of an abscess or free fluid. 2. No dilated bowel loops to suggest an ileus or obstruction.
[2024-01-05] VITALS (22 sets, daily range): BP systolic 90–125; BP diastolic 51–87; PULSE 59–95; RESP 13–25; TEMP 36.4–37.4; O2SAT 92–99; BMI 26.2
[2024-01-05] MEDS: VANCOMYCIN CONSULT REQUEST 1 EACH NOTAPPLIC (00:06)
--- NOTE | 2024-01-05 00:07 | PC.NURSE ---
Paged pharmacy at this time for patient's vancomycin consult.
[2024-01-05] MEDS: PIPERACILLIN/TAZO 3.375 GM in 0.9 % SODIUM CHLORIDE 50 ML IV ×3 (01:13→18:04)
[2024-01-05] MEDS: OXYCODONE 5MG IMMEDIATE RELEASE TABLET 5 MG PO ×3 (01:19→22:16)
[2024-01-05] MEDS: VANCOMYCIN HCL 1,500 MG in 0.9 % SODIUM CHLORIDE 250 ML 125 MG IV (03:05)
[2024-01-05] MEDS: NP THYROID 60 MG 1 EACH PO (06:10)
--- NOTE | 2024-01-05 06:16 | PC.NURSE ---
Renetta is at bedside talking to patient at this time.
[2024-01-05 06:19] LABS: Basophils # 0.1 K/mm3 (0-0.2); Basophils % 0.7 % (0.1-2.0); Eosinophils # 0.1 K/mm3 (0.0-0.4); Eosinophils % 0.6 % (0.1-12.0); Hematocrit 29.8 % (37.0-47.0); Hemoglobin 9.5 g/dL (12.2-16.2); Lymphocytes # 1.3 K/mm3 (0.7-4.5); Lymphocytes % 13.7 % (10-50); Mean Corpuscular HGB Conc 31.8 g/dL (31.8-35.4); Mean Corpuscular Hemoglobin 33.3 pg (27.0-31.2); Mean Corpuscular Volume 104.8 fl (81-99); Mean Platelet Volume 8.1 fl (7.4-10.4); Monocytes # 0.3 K/mm3 (0.1-1.0); Monocytes % 2.7 % (1.7-9.3); Neutrophils # 7.9 K/mm3 (1.8-7.8); Neutrophils % 82.2 % (37.0-80.0); Platelet Count 553 K/mm3 (142-424); Red Blood Count 2.85 M/mm3 (4.20-5.40); Red Cell Distribution Width 14.2 % (11.5-17.5); White Blood Count 9.6 K/mm3 (4.8-10.8)
[2024-01-05 06:26] LABS: Chloride 103 mmol/L (98-107); Potassium 3.7 mmoL/L (3.5-5.1); Sodium 131 mmol/L (136-145)
[2024-01-05 06:28] LABS: Blood Urea Nitrogen 7 mg/dl (7-17); Creatinine Clearance Estimated 87 mL/min (50-200); Estimated Glomerular Filt Rate 73 ml/min (>60); GFR (African American) 89 ML/MIN (>60)
[2024-01-05 06:29] LABS: Alanine Aminotransferase 17 U/L (12-78); Albumin Level 2.4 g/dl (3.5-5.0); Albumin/Globulin Ratio 0.9 (1.1-1.8); Alkaline Phosphatase 72 U/L (38-126); Anion Gap 2.7 mEq/L (5-15); Aspartate Amino Transferase 30 U/L (14-36); Bilirubin,Total 0.6 mg/dl (0.2-1.3); Calcium 7.1 mg/dl (8.4-10.2); Carbon Dioxide 29 mmol/L (22.0-30.0); Globulin 2.8 g/dL (1.3-3.2); Glucose 71 mg/dl (74-100); Total Protein,Serum 5.2 g/dl (6.3-8.2)
--- NOTE | 2024-01-05 06:41 | PC.NURSE ---
Patient is alert and oriented x4. Patient's SCDs have remained at bedside and removed by patient during the night. Patient has had an eventful night. She started exhibiting increased abdominal pain (midline incision area) at around 21:30 last night after a walk around the hallway. Patient stated that she believed her ostomy was starting to leak. Patient was inspected at the time; Arian Ferrer APRN was paged and arrived at bedside. Upon inspection, her incision turned out to be leaking at the bottom. Patient's abdomen is very tender and her right quadrants are distended and slightly firm. Drainage from her incision is orange and runny. Her drainage was cultured last night and tested positive for gram-positive cocci in clusters. Patient also had a CT scan last night at around 22:00. Her incisional dressing has been frequently changed (last change was at 06:00) and her ostomy bag was replaced this shift as well. She has been receiving oxycodone per MAR for her pain. Her KAM drain was also emptied during this shift; 20 mL was emptied from the lateral drain. Patient has gotten up to void a few times and walk the hallway this shift with standby assistance. She reports some hesitance during her voids. She has slept intermittently throughout the night. Renetta consulted with patient this morning; she will be sent to the OR during the oncoming shift. Patient NPO as of now. She is currently resting in bed at this time and has LR infusing at 125 mL/hr.
--- NOTE | 2024-01-05 06:41 | EXP.SURG.PN ---
Subjective Narrative: Patient states that she does not feel well. She had to have her dressings changed overnight and had some drainage. She has increased tenderness. She is taking minimal clear liquids. Exam Data for Last 24 hours Vital signs and Labs for Last 24 Hours: Temp Pulse Resp BP Pulse Ox O2 Del Method O2 Flow Rate 97.7 F 90 18 92/51 L 95 Room Air 2 01/05/24 04:00 01/05/24 04:00 01/05/24 04:00 01/05/24 04:00 01/05/24 04:00 01/05/24 04:55 01/03/24 18:43 Laboratory Results - last 24 hr 01/04/24 05:34: WBC 8.7 D, RBC 2.98 L, Hgb 9.8 L, Hct 30.9 L, MCV 103.9 H, MCH 32.8 H, MCHC 31.6 L, RDW 14.3, Plt Count 536 H D, MPV 7.5, Neut % (Auto) 80.1 H, Lymph % (Auto) 16.1, Sebastian % (Auto) 3.3, Eos % (Auto) 0.3, Baso % (Auto) 0.1, Neut # (Auto) 7.0, Lymph # (Auto) 1.4, Sebastian # (Auto) 0.3, Eos # (Auto) 0.0, Baso # (Auto) 0.0, Sodium 135 L, Potassium 3.7, Chloride 103, Carbon Dioxide 31 H, Anion Gap 4.7 L, BUN 9, Creatinine 0.90, Estimated Creat Clear 78, Estimated GFR 64, Est GFR ( Amer) 77, Glucose 87 D, Calcium 7.4 L, Magnesium 2.6 H, Total Bilirubin 0.3, AST 31 D, ALT 19, Alkaline Phosphatase 81, C-Reactive Protein 166.1 H, Total Protein 5.4 L, Albumin 2.4 L, Globulin 3.0, Albumin/Globulin Ratio 0.8 L 01/05/24 05:28: WBC 9.6, RBC 2.85 L, Hgb 9.5 L, Hct 29.8 L, MCV 104.8 H, MCH 33.3 H, MCHC 31.8, RDW 14.2, Plt Count 553 H, MPV 8.1, Neut % (Auto) 82.2 H, Lymph % (Auto) 13.7, Sebastian % (Auto) 2.7, Eos % (Auto) 0.6, Baso % (Auto) 0.7, Neut # (Auto) 7.9 H, Lymph # (Auto) 1.3, Sebastian # (Auto) 0.3, Eos # (Auto) 0.1, Baso # (Auto) 0.1 I & O for Last 24 hours: Intake & Output 01/02/24 01/03/24 01/04/24 01/05/24 11:59 11:59 11:59 11:59 Intake Total 1999 530 / 530 578 / 578 1160 / 1160 Output Total 0 / 0 985 / 985 45 / 45 40 / 40 Balance 1999 -455 / -455 533 / 533 1120 / 1120 Weight 154 lb 153 lb 15.992 oz 163 lb 162 lb 14.746 oz Microbiology Reports for the Last 24 Hours: Microbiology 01/04/24 21:50 Incision Gram Stain - Final 01/02/24 06:56 Abdomen Abscess Culture - Preliminary NO GROWTH AFTER 48 HOURS 01/02/24 05:27 Blood Blood Culture - Preliminary NO GROWTH AFTER 48 HOURS 01/02/24 05:20 Blood Blood Culture - Preliminary NO GROWTH AFTER 48 HOURS *Routine Abdominal Exam Abdominal: Present tenderness, surgical scars and ostomy Comments: Towards the lower aspect of her incision there is some erythema with induration and minimal serous drainage. It is tender. Progress Note: A&P Assessment and plan (1) Perforated sigmoid colon: Status: Acute Assessment and plan: It appears that the patient has a superficial wound infection, not unexpected given intra-abdominal findings during surgery. At the time of surgery plan was for attempt at closure of the skin with the high likelihood that this could require opening. Consideration was being given for possible removal of some gayathri at the bedside and waking the wound. However with the patient's discomfort plan will be for opening of the incision under anesthesia with washout with partial reclosure and wicking . (2) S/P partial resection of colon: Status: Acute (3) S/P colostomy: Status: Acute (4) Peritonitis: Status: Acute (5) Hypothyroidism: Status: Acute (6) HTN (hypertension): Status: Acute (7) Ulcerative colitis: Status: Acute
--- NOTE | 2024-01-05 08:11 | PC.NURSE ---
Spoke with Tiffani in pre-op about need for chest xray and ekg pre surgery today. She verified w/anesthesiology (Luis M) that neither were needed at this time.
[2024-01-05] MEDS: HYDROMORPHONE 2MG/ML SYRINGE 1 MG IV ×4 (08:15→17:09)
[2024-01-05 08:29] LABS: C-Reactive Protein 152.4 mg/L (0-4)
--- NOTE | 2024-01-05 08:48 | EXP.PHA.CONS ---
Pharmacy Consult Date: 01/05/24 Time: 08:48 Referring provider: ROBSON Reason for Consult:: VANCOMYCIN DOSING Allergies Allergy/AdvReac Type Severity Reaction Status Date / Time codeine [CODEINE] Allergy Mild Verified 12/15/23 16:33 Sulfa (Sulfonamide Allergy Mild Verified 12/15/23 16:33 Antibiotics) [SULFA (SULFONAMIDE ANTIBIOTICS)] Home Medications Medication Instructions Recorded Confirmed Type progesterone micronized 100 mg 200 mg PO HS 10/07/20 01/02/24 History capsule losartan 50 mg-hydrochlorothiazide 1 tab PO DAILY #30 tabs 11/27/22 01/02/24 Rx 12.5 mg tablet thyroid (pork) 60 mg tablet ([employer] 60 mg PO DAILY 12/15/23 01/02/24 History Thyroid) New Prescriptions to Start Prescriptions: Height: 1.68 m Weight: 73.9 kg Laboratory Results:: Laboratory Results - last 24 hr 01/05/24 05:28: WBC 9.6, RBC 2.85 L, Hgb 9.5 L, Hct 29.8 L, MCV 104.8 H, MCH 33.3 H, MCHC 31.8, RDW 14.2, Plt Count 553 H, MPV 8.1, Neut % (Auto) 82.2 H, Lymph % (Auto) 13.7, [place]hing % (Auto) 2.7, Eos % (Auto) 0.6, Baso % (Auto) 0.7, Neut # (Auto) 7.9 H, Lymph # (Auto) 1.3, [place] # (Auto) 0.3, Eos # (Auto) 0.1, Baso # (Auto) 0.1, Sodium 131 L, Potassium 3.7, Chloride 103, Carbon Dioxide 29, Anion Gap 2.7 L, BUN 7, Creatinine 0.80, Estimated Creat Clear 87, Estimated GFR 73, Est GFR ( Amer) 89, Glucose 71 L, Calcium 7.1 L, Total Bilirubin 0.6, AST 30, ALT 17, Alkaline Phosphatase 72, Total Protein 5.2 L, Albumin 2.4 L, Globulin 2.8, Albumin/Globulin Ratio 0.9 L Medical History: Medical History (Updated 01/03/24 @ 16:56 by Beto Thurman MD) Hypothyroidism HTN (hypertension) Ulcerative colitis Crohn disease Parotitis Facial swelling Assessment and Plan Assessment and plan all Dx Assessment and Plan for all problems:: Pharmacokinetic dosing service Objective: Patient: Floor: Age: 58 yo Serum creatinine: 0.80 mg/dL Height: 66.1 Inches Weight (kg): 73.9 Assessment: IBW (kg): 59.53 Dosing wt(kg): 73.9 Estimated Creatinine clearance (ml/min): 70.3 CRCL method: Cockcroft and Gault using ibw(default). Drug selected: Vancomycin Loading dose (mg): Vd (liters): 59.1 (factor used: 0.8 L/kg) Vadim (hr-1): 0.063 Half life (hrs): 11.00 CLvanco=?? 3.723 L/hr Recommended dose: 1500 mg Interval: 18 hrs Infusion time (hrs): 2.0 Predicted peak (mcg/mL): 35.2 Predicted trough (mcg/mL): 12.85 Total body weight is being used for vancomycin dosing. Recommendations: Give Vancomycin 1500 mg q 18 hrs with an expected Cpeak of 35.2 mcg/ml and an expected Ctrough of 12.85 mcg/ml AUC 0-24 /RIVER Data: RIVER 0.5 mcg/mL:?? AUC/RIVER:? 1074.4 RIVER 1.0 mcg/mL:?? AUC/RIVER:? 537.2 --------- RIVER 1.5 mcg/mL:?? AUC/RIVER:? 358.1 RIVER 2.0 mcg/mL:?? AUC/RIVER:? 268.6 Thank you for the consult, will continue to follow. -CHASE EMERSOND
--- NOTE | 2024-01-05 09:03 | EXP.ACUTE.PN ---
Subjective *Date: 01/05/24 *Time: 18:36 Interval history: Patient had episode overnight of pain and drainage from her incision. N.p.o. this morning with planned surgery to washout incision. Denies any fevers or chills. No nausea or vomiting. Still having gaseous and stool output from ostomy. Medical Exam Vital signs and Labs for Last 24 Hours: Vital Signs Temp Pulse Pulse Resp BP Pulse Ox O2 Del Method 01/05/24 08:00 Room Air 01/05/24 08:00 99.4 F 86 16 108/62 L 99 Room Air 01/05/24 07:00 Room Air 01/05/24 04:55 Room Air 01/05/24 04:00 86 01/05/24 04:00 97.7 F 90 18 92/51 L 95 Room Air 01/05/24 03:00 Room Air 01/05/24 01:00 Room Air 01/05/24 00:08 84 01/05/24 00:00 98.6 F 94 H 22 100/59 L 99 Room Air 01/04/24 23:00 Room Air 01/04/24 21:00 Room Air 01/04/24 20:00 87 01/04/24 20:00 98.5 F 88 16 111/73 99 Room Air 01/04/24 20:00 87 99 Room Air 01/04/24 18:53 Room Air 01/04/24 16:38 Room Air 01/04/24 16:00 85 01/04/24 16:00 98.4 F 81 20 111/71 97 Room Air 01/04/24 14:53 Room Air 01/04/24 13:00 Room Air 01/04/24 12:00 80 01/04/24 12:00 97.7 F 97 H 20 97/54 L 98 Room Air 01/04/24 11:00 Room Air Intake and Output 01/04/24 01/05/24 01/05/24 23:59 07:59 15:59 Intake Total 520 / 1160 280 / 280 Output Total 20 / 35 20 / 20 0 / 20 Balance 500 / 1125 260 / 260 0 / 260 Intake: Intake, Oral Amount 270 / 750 120 / 120 Intake, Oral Supplement Amount 0 / 0 Intake, Total IV Amount 250 / 410 160 / 160 Fluconazole in NaCl,Iso-Osm 200 100 / 100 mg In 100 ml @ 50 mls/hr IV Q24H [facility] Rx#:[id number] Lactated Ringers 1000ML 1,000 160 / 160 ml @ 125 mls/hr IV .Q8H [facility] Rx# :[id number] Piperacillin/Tazo 3.375 gm In 0 150 / 150 .9 % Sodium Chloride 50 ml @ 100 mls/hr IV Q8H [facility] Rx#: [id number] Output: Output, Urine Amount 0 / 0 0 / 0 0 / 0 Output, Drainage Amount Anterior Lateral Abdomen Anterior Medial Abdomen Other: Number of Voids 0 Number of Unmeasured Voids 1 1 1 Number of Bowel Movements 1 Weight 73.9 kg 73.9 kg Patient Weight 01/05/24 23:59 Weight 73.9 kg Laboratory Results - last 24 hr 01/05/24 05:28: WBC 9.6, RBC 2.85 L, Hgb 9.5 L, Hct 29.8 L, MCV 104.8 H, MCH 33.3 H, MCHC 31.8, RDW 14.2, Plt Count 553 H, MPV 8.1, Neut % (Auto) 82.2 H, Lymph % (Auto) 13.7, [place] % (Auto) 2.7, Eos % (Auto) 0.6, Baso % (Auto) 0.7, Neut # (Auto) 7.9 H, Lymph # (Auto) 1.3, [place] # (Auto) 0.3, Eos # (Auto) 0.1, Baso # (Auto) 0.1, Sodium 131 L, Potassium 3.7, Chloride 103, Carbon Dioxide 29, Anion Gap 2.7 L, BUN 7, Creatinine 0.80, Estimated Creat Clear 87, Estimated GFR 73, Est GFR ( Amer) 89, Glucose 71 L, Calcium 7.1 L, Total Bilirubin 0.6, AST 30, ALT 17, Alkaline Phosphatase 72, C-Reactive Protein 152.4 H, Total Protein 5.2 L, Albumin 2.4 L, Globulin 2.8, Albumin/Globulin Ratio 0.9 L I & O for Labs for Last 24 Hours: Intake & Output 01/02/24 01/03/24 01/04/24 01/05/24 23:59 23:59 23:59 23:59 Intake Total 2530 / 2530 578 / 578 880 / 1160 280 / 280 Output Total 385 / 685 630 / 630 35 / 35 20 / 20 Balance 2145 / 1845 -52 / -52 845 / 1125 260 / 260 Weight 69.853 kg 69.85 kg 73.936 kg 73.9 kg Microbiology Reports for the Last 24 Hours: Microbiology 01/04/24 21:50 Incision Gram Stain - Final 01/02/24 06:56 Abdomen Abscess Culture - Preliminary NO GROWTH AFTER 48 HOURS 01/02/24 05:27 Blood Blood Culture - Preliminary NO GROWTH AFTER 48 HOURS 01/02/24 05:20 Blood Blood Culture - Preliminary NO GROWTH AFTER 48 HOURS Constitutional: Present no acute distress, average body habitus and cooperative Head: Present atraumatic and normocephalic ENT: Present normal exam Respiratory: Present normal respiratory effort; Absent rhonchi, wheezes or crackles Cardiac: Present Reg Rate and Rhythm GI: Present soft, tenderness (Diffuse of her abdomen.) and normal bowel sounds; Absent distention Comments:: Mild erythema around incision. Receding from leading edge. Liquid output from ostomy. Extremities: Present normal inspection and full ROM Skin: Present intact; Absent erythema Neuro: Present Grossly Intact, alert, awake, oriented x 3 and moves all extremities Assessment and Plan *Assessment and plan (1) Perforated sigmoid colon: Status: Acute Category: Medical Code(s): K63.1 - Perforation of intestine (nontraumatic) (2) S/P partial resection of colon: Status: Acute Category: Surgical Code(s): Z90.49 - Acquired absence of other specified parts of digestive tract (3) S/P colostomy: Status: Acute Category: Surgical Code(s): Z93.3 - Colostomy status (4) Peritonitis: Status: Acute Category: Medical Code(s): K65.9 - Peritonitis, unspecified (5) Hypothyroidism: Status: Acute Category: Medical Code(s): E03.9 - Hypothyroidism, unspecified (6) HTN (hypertension): Status: Acute Qualifiers: Hypertension type: primary hypertension Qualified Code(s): I10 - Essential (primary) hypertension Category: Medical Code(s): I10 - Essential (primary) hypertension (7) Ulcerative colitis: Status: Acute Qualifiers: Digestive disease complication type: with abscess Ulcerative colitis location: unspecified ulcerative colitis location Qualified Code(s): K51.914 - Ulcerative colitis, unspecified with abscess Category: Medical Code(s): K51.90 - Ulcerative colitis, unspecified, without complications Plan Patient is a 58-year-old female with past medical history of hypothyroidism hypertension inflammatory bowel disease who presents to the hospital due to significant abdominal pain. According to the patient she has been having abdominal pain for past 1 week however it significantly gotten worse yesterday evening and pain was unbearable 10/10 in intensity, generalized, patient otherwise denies fevers. On further evaluation in the emergency department patient was noted to have bowel perforation on CT abdomen pelvis. Status post surgical resection of perforated portion of sigmoid colon. Ostomy created. Episode overnight of drainage and pain from abdomen. Returning to the OR today. Discussed case with surgeon, will washout incision. Evaluate for abscess or infection. Continues to require inpatient management. Problems addressed as follows: Perforation of sigmoid colon with Pneumoperitoneum/peritonitis s/p partial resection of colon with creation of colostomy -Status post surgery 01/01 with partial bowel resection and creation of colostomy -Surgery consulted and assisting with care. Discussed case this morning. N.p.o. pending surgery. Will washout incision. Advance diet back to clears thereafter. Still awaiting pathology from segment of sigmoid colon that was removed. -Continue fluconazole 200 mg IV daily, continue Zosyn 3.375 g IV every 8 hours; initiated on vancomycin overnight. Continue antibiotics for minimum of 5 days, reevaluate thereafter. -White cell count remains normal at 9.6. Hemoglobin 9.5. CRP elevated but improving at 154. -Zofran 4 mg IV every 8 hours as needed for nausea -Resume Dilaudid 1 mg every 2 hours due to n.p.o. status. After surgery, will resume oral oxycodone as needed every 6 hours as needed. Monitoring for toxicity. -Colostomy care per nursing -Blood cultures and wound cultures from initial presentation negative. Wound culture from last night of incision with gram-positive cocci. - Repeat CBC, CMP, magnesium ordered for the morning History of hypertension: Holding home losartan. Blood pressure soft at this time. Goal MAP greater than 65; blood pressure 97/51 Hypothyroid: Continue home Curtis Thyroid 60 mg; TSH at goal of 1.49 Full code Clear liquid diet
[2024-01-05 09:04] LABS: Magnesium 2.2 mg/dl (1.6-2.3)
--- NOTE | 2024-01-05 09:37 | EXP.PHA.PN ---
Subjective *Date: 01/05/24 *Time: 09:37 Medical Exam Vital signs and Labs for Last 24 Hours: Vital Signs Temp Pulse Pulse Resp BP Pulse Ox O2 Del Method 01/05/24 08:00 Room Air 01/05/24 08:00 99.4 F 86 16 108/62 L 99 Room Air 01/05/24 07:00 Room Air 01/05/24 04:55 Room Air 01/05/24 04:00 86 01/05/24 04:00 97.7 F 90 18 92/51 L 95 Room Air 01/05/24 03:00 Room Air 01/05/24 01:00 Room Air 01/05/24 00:08 84 01/05/24 00:00 98.6 F 94 H 22 100/59 L 99 Room Air 01/04/24 23:00 Room Air 01/04/24 21:00 Room Air 01/04/24 20:00 87 01/04/24 20:00 98.5 F 88 16 111/73 99 Room Air 01/04/24 20:00 87 99 Room Air 01/04/24 18:53 Room Air 01/04/24 16:38 Room Air 01/04/24 16:00 85 01/04/24 16:00 98.4 F 81 20 111/71 97 Room Air 01/04/24 14:53 Room Air 01/04/24 13:00 Room Air 01/04/24 12:00 80 01/04/24 12:00 97.7 F 97 H 20 97/54 L 98 Room Air 01/04/24 11:00 Room Air Intake and Output 01/04/24 01/05/24 01/05/24 23:59 07:59 15:59 Intake Total 520 / 1160 280 / 280 Output Total 20 / 35 20 / 20 0 / 20 Balance 500 / 1125 260 / 260 0 / 260 Intake: Intake, Oral Amount 270 / 750 120 / 120 Intake, Oral Supplement Amount 0 / 0 Intake, Total IV Amount 250 / 410 160 / 160 Fluconazole in NaCl,Iso-Osm 200 100 / 100 mg In 100 ml @ 50 mls/hr IV Q24H [facility] Rx#:[id number] Lactated Ringers 1000ML 1,000 160 / 160 ml @ 125 mls/hr IV .Q8H [facility] Rx# :[id number] Piperacillin/Tazo 3.375 gm In 0 150 / 150 .9 % Sodium Chloride 50 ml @ 100 mls/hr IV Q8H [facility] Rx#: [id number] Output: Output, Urine Amount 0 / 0 0 / 0 0 / 0 Output, Drainage Amount Anterior Lateral Abdomen Anterior Medial Abdomen Other: Number of Voids 0 Number of Unmeasured Voids 1 1 1 Number of Bowel Movements 1 Weight 73.9 kg 73.9 kg Patient Weight 01/05/24 23:59 Weight 73.9 kg Laboratory Results - last 24 hr 01/05/24 05:28: WBC 9.6, RBC 2.85 L, Hgb 9.5 L, Hct 29.8 L, MCV 104.8 H, MCH 33.3 H, MCHC 31.8, RDW 14.2, Plt Count 553 H, MPV 8.1, Neut % (Auto) 82.2 H, Lymph % (Auto) 13.7, [place] % (Auto) 2.7, Eos % (Auto) 0.6, Baso % (Auto) 0.7, Neut # (Auto) 7.9 H, Lymph # (Auto) 1.3, [place] # (Auto) 0.3, Eos # (Auto) 0.1, Baso # (Auto) 0.1, Sodium 131 L, Potassium 3.7, Chloride 103, Carbon Dioxide 29, Anion Gap 2.7 L, BUN 7, Creatinine 0.80, Estimated Creat Clear 87, Estimated GFR 73, Est GFR ( Amer) 89, Glucose 71 L, Calcium 7.1 L, Magnesium 2.2 D, Total Bilirubin 0.6, AST 30, ALT 17, Alkaline Phosphatase 72, C-Reactive Protein 152.4 H, Total Protein 5.2 L, Albumin 2.4 L, Globulin 2.8, Albumin/Globulin Ratio 0.9 L I & O for Labs for Last 24 Hours: Intake & Output 01/02/24 01/03/24 01/04/24 01/05/24 23:59 23:59 23:59 23:59 Intake Total 2530 / 2530 578 / 578 880 / 1160 280 / 280 Output Total 385 / 685 630 / 630 Balance 2145 / 1845 -52 / -52 845 / 1125 260 / 260 Weight 69.853 kg 69.85 kg 73.936 kg 73.9 kg Microbiology Reports for the Last 24 Hours: Microbiology 01/04/24 21:50 Incision Gram Stain - Final 01/02/24 06:56 Abdomen Abscess Culture - Preliminary NO GROWTH AFTER 48 HOURS The patient's infection will respond to the chosen ABx?: Yes Is the patient receiving the right drug, dose, and route?: Yes Could a more targeted ABx be ordered?: No (CONTINUE CURRENT ABX, WBC WNL, TMAX 99.4)
[2024-01-05] MEDS: DIPHENHYDRAMINE 2% CREAM 28GM TP ×2 (10:14→18:04)
[2024-01-05] MEDS: LACTATED RINGERS 1000ML 1,000 ML 125 ML IV (12:38)
[2024-01-05] MEDS: FLUCONAZOLE IN NACL,ISO-OSM 200 MG/100 ML PIGGYBACK 50 MG IV (12:38)
--- NOTE | 2024-01-05 14:08 | PC.NURSE ---
Pt off floor to surgery.
--- NOTE | 2024-01-05 15:38 | EXP.ANES.CKL ---
[facility] Disclaimer: The information contained in this section may have been updated after the patient was seen, as this information can be updated by other users. Medical History (Updated 01/03/24 @ 16:56 by Beto Thurman MD) Hypothyroidism HTN (hypertension) Ulcerative colitis Crohn disease Parotitis Facial swelling Surgical History (Updated 01/03/24 @ 16:56 by Beto Thurman MD) Hx of colonoscopy S/P laparoscopic hysterectomy H/O breast augmentation Social History (Updated 01/02/24 @ 10:49 by Monet Goff RN) Smoking Status: Never smoker alcohol intake: current alcohol intake frequency: a few times a month counseling provided: none substance use type: denies use current occupational status: unemployed Travel in the last 8 weeks: None household members: spouse housing: house current occupational exposures/hazards: No caffeine: Yes [facility] [place] Anesthesia Checklist Patient Identification Patient Identification: Arm Band Structural Data Admitted From: Inpatient Planned Operative Procedure/s: I&D/Washout of Abdominal Wound Consent for Planned Operative Procedure(s) Verified: Yes Verified Documents: Surgical Consent and History and Physical NPO Status Verified Time NPO: 00:00 Additional verifications Anesthesia Reactions: No Airway Assessment Mallampati Score:: Class II C-Spine Mobility Assessed: Yes TMJ Mobility Assessed: Yes Dentition: Good Dentition Neurological Assessment Level of Consciousness: Awake, Alert and Appropriate Anesthesia Plan Anesthesia Risk discussed: Yes Anesthesia Plan: Verified ASA Class: II Anesthesia Type: General
--- NOTE | 2024-01-05 16:09 | EXP.OP.NOTE ---
Date of procedure: 01/05/24 Pre-op Diagnosis:: Wound infection Post-op Diagnosis:: Same Procedure performed:: Wound washout Surgeon:: Hipolito Jackson MD DIRECT CHILL CASTER:: Darrion Lara Anesthesia: LMA Estimated blood loss (mL): 10 Clinical Note:: Patient is a 58-year-old female with inflammatory bowel disease who had presented on 01/02/2024 with several day history of obstipation with increasing abdominal pain and development of regional peritonitis. She presented to the emergency department which CT scan revealed perforation of sigmoid colon with moderate amount of free air without clear abscess. There is thickening of the burciaga of the colon extending from the proximal sigmoid colon to the rectum with a moderate amount surrounding free air. She was taken to the operating room emergently and underwent laparotomy via low midline at which time she was found to have phlegmonous inflammatory masslike lesion in the sigmoid colon. She underwent Hopper's resection with creation of end colostomy. Plan was made to close the incision due to the close proximity of the colostomy to the midline incision with the understanding that she has high likelihood of developing infection. She did well for first couple of days postoperatively but then developed some increasing tenderness and discomfort around the incision. The hospitalist service had ordered a CT scan which revealed expected postoperative changes. On the morning of 01/05/2024 she was found to have some erythema with induration and tenderness surrounding her incision towards the lower portion. Given her discomfort as opposed to opening the incision at the bedside and initiating dressing changes plan was made for opening of wound in the operating room under anesthesia. . Operative findings:: She has some somewhat purulent serous fluid mostly in the lower aspect of the subcutaneous tissue. Fascia was intact but fascia was rather tenuous and there was some minimal focal necrosis of the fascia likely from recent corticosteroids. Operative note:: Consent was obtained patient taken the operating room. She was positioned in a supine position. General anesthesia was induced via LMA. The previously placed KAM drains were removed as they were draining merely thin serosanguineous fluid. Colostomy appliance was removed. Her abdomen was then prepped and draped in the standard surgical fashion. Skin gayathri were removed. There was some cloudy slightly purulent but mostly serous fluid with evidence of fatty necrosis which exuded from the lower aspect of the wound. This was sent for cultures. The wound was opened in its entirety. The underlying fascia appeared to be intact but there were some focal areas of fascial necrosis likely from recent corticosteroid and slow healing. The fascia was not opened. The wound was thoroughly irrigated with a couple liters of pulsatile saline irrigation using the Interpulse device. There was good hemostasis. Upper aspect of the wound adjacent to the colostomy was then closed with multiple interrupted 3-0 nylon vertical mattress sutures. A couple of gaps were left in the lower aspect of the wound. These were wicked with dry gauze. The drain sites were loosely closed with a 4-0 plain gut. Clean dry sterile dressing was applied. New colostomy appliance was secured. . Condition: stable Disposition: PACU Complications:: None immediately apparent
--- NOTE | 2024-01-05 16:11 | EXP.ANES.I ---
[facility] [place] Anesthesia Record Part I Anesthesia Record I Intake, IV Amount: 1,000 Hydration: Adequate Estimated blood loss (mL): 5 Urine output (mL): 0 Blood Products used (#): none Blood Pressure: 115/67 SaO2: 94 Pulse Rate: 94 Airway Patency: Patent Respiratory Rate: 16 Temperature: 98.2 F Patient is:: Drowsy and Stable Stable to PACU at:: 16:05
[2024-01-05] MEDS: MORPHINE 2MG/ML SYRINGE 2 MG IV ×2 (16:25→16:30)
[2024-01-05] MEDS: VANCOMYCIN/WATER FOR INJ (PEG) 1.5 GM/300 ML PIGGYBACK IV (20:26)
[2024-01-05] MEDS: PANTOPRAZOLE 40MG VIAL 40 MG IV (20:27)
[2024-01-06] VITALS (7 sets, daily range): BP systolic 95–111; BP diastolic 57–68; PULSE 58–84; RESP 16–20; TEMP 36.3–37.1; O2SAT 97–98; BMI 27.0
[2024-01-06] MEDS: PIPERACILLIN/TAZO 3.375 GM in 0.9 % SODIUM CHLORIDE 50 ML IV ×3 (00:59→17:31)
[2024-01-06] MEDS: OXYCODONE 5MG IMMEDIATE RELEASE TABLET 5 MG PO ×4 (04:00→17:36)
--- NOTE | 2024-01-06 05:22 | PC.NURSE ---
Patient is A&Ox4 and tolerating room air. Dressing over midline incision had some light pink drainage leaking through and was changed. Patient called out twice this shift complaining of pain in incision site and was treated per SEP. Patient states relief of pain after treatment. Pt ambulated to the bathroom multiple times and walked in the hallway this shift.
[2024-01-06] MEDS: NP THYROID 60 MG 1 EACH PO (06:03)
[2024-01-06] MEDS: LACTATED RINGERS 1000ML 1,000 ML 125 ML IV (06:03)
[2024-01-06 06:19] LABS: Basophils % 0.1 % (0.1-2.0); Eosinophils % 0.1 % (0.1-12.0); Hematocrit 29.7 % (37.0-47.0); Hemoglobin 9.4 g/dL (12.2-16.2); Lymphocytes # 0.7 K/mm3 (0.7-4.5); Lymphocytes % 7.5 % (10-50); Mean Corpuscular HGB Conc 31.8 g/dL (31.8-35.4); Mean Corpuscular Hemoglobin 32.5 pg (27.0-31.2); Mean Corpuscular Volume 102.3 fl (81-99); Mean Platelet Volume 8.3 fl (7.4-10.4); Monocytes # 0.1 K/mm3 (0.1-1.0); Monocytes % 1.6 % (1.7-9.3); Neutrophils # 8.1 K/mm3 (1.8-7.8); Neutrophils % 90.7 % (37.0-80.0); Platelet Count 541 K/mm3 (142-424); Red Cell Distribution Width 14.3 % (11.5-17.5)
[2024-01-06 06:21] LABS: Chloride 106 mmol/L (98-107); Potassium 3.8 mmoL/L (3.5-5.1); Sodium 137 mmol/L (136-145)
[2024-01-06 06:23] LABS: Alanine Aminotransferase 20 U/L (12-78); Alkaline Phosphatase 71 U/L (38-126); Aspartate Amino Transferase 25 U/L (14-36); Bilirubin,Total 0.4 mg/dl (0.2-1.3); Blood Urea Nitrogen 7 mg/dl (7-17); Creatinine Clearance Estimated 100 mL/min (50-200); Estimated Glomerular Filt Rate 85 ml/min (>60); GFR (African American) 103 ML/MIN (>60)
[2024-01-06 06:24] LABS: Albumin Level 2.4 g/dl (3.5-5.0); Albumin/Globulin Ratio 0.8 (1.1-1.8); Anion Gap 5.8 mEq/L (5-15); Calcium 7.7 mg/dl (8.4-10.2); Carbon Dioxide 29 mmol/L (22.0-30.0); Globulin 3.1 g/dL (1.3-3.2); Glucose 127 mg/dl (74-100); Total Protein,Serum 5.5 g/dl (6.3-8.2)
[2024-01-06 06:29] LABS: Magnesium 2.3 mg/dl (1.6-2.3)
[2024-01-06 06:36] LABS: MANUAL DIFFERENTIAL MANUAL DIFFERENTIAL (MANUAL DIFF)
--- NOTE | 2024-01-06 08:27 | P.PN_ITS ---
Subjective Narrative: No new complaints. No nausea. Taking clear liquids. Some gas from colostomy. Still feels a bit bloated. Exam Data for Last 24 hours Vital signs and Labs for Last 24 Hours: Temp Pulse Resp BP Pulse Ox O2 Del Method O2 Flow Rate 97.6 F 84 18 99/62 L 98 Room Air 2 01/06/24 04:00 01/06/24 04:51 01/06/24 04:00 01/06/24 04:00 01/06/24 04:00 01/06/24 07:42 01/03/24 18:43 Laboratory Results - last 24 hr 01/05/24 05:28: Magnesium 2.2 D, C-Reactive Protein 152.4 H 01/06/24 05:19: WBC 9.0, RBC 2.90 L, Hgb 9.4 L, Hct 29.7 L, MCV 102.3 H, MCH 32.5 H, MCHC 31.8, RDW 14.3, Plt Count 541 H, MPV 8.3, Neut % (Auto) 90.7 H, Lymph % (Auto) 7.5 L, [place] % (Auto) 1.6 L, Eos % (Auto) 0.1, Baso % (Auto) 0.1, Neut # (Auto) 8.1 H, Lymph # (Auto) 0.7, [place] # (Auto) 0.1, Eos # (Auto) 0.0, Baso # (Auto) 0.0, Sodium 137, Potassium 3.8, Chloride 106, Carbon Dioxide 29, Anion Gap 5.8, BUN 7, Creatinine 0.70, Estimated Creat Clear 100, Estimated GFR 85, Est GFR ( Amer) 103, Glucose 127 H D, Calcium 7.7 L, Magnesium 2.3, Total Bilirubin 0.4, AST 25, ALT 20, Alkaline Phosphatase 71, Total Protein 5.5 L, Albumin 2.4 L, Globulin 3.1, Albumin/Globulin Ratio 0.8 L I & O for Last 24 hours: Intake & Output 01/03/24 01/04/24 01/05/24 01/06/24 11:59 11:59 11:59 11:59 Intake Total 530 / 530 578 / 578 1460 / 1460 3890 / 3890 Output Total 985 / 985 45 / 45 40 / 40 800 / 800 Balance -455 / -455 533 / 533 1420 / 1420 3090 / 3090 Weight 153 lb 15.992 oz 163 lb 162 lb 14.746 oz 168 lb Microbiology Reports for the Last 24 Hours: Microbiology 01/02/24 05:20 Blood Blood Culture - Preliminary NO GROWTH AFTER 4 DAYS 01/02/24 05:27 Blood Blood Culture - Preliminary NO GROWTH AFTER 4 DAYS 01/04/24 21:50 Incision Gram Stain - Final 01/04/24 21:50 Incision Wound Culture - Preliminary 01/02/24 06:56 Abdomen Abscess Culture - Preliminary NO GROWTH AFTER 72 HOURS *Routine Abdominal Exam Comments: Abdominal erythema. Progress Note: A&P Assessment and plan (1) Perforated sigmoid colon: Status: Acute Assessment and plan: Continue current care. Limit to clear liquids given the clinical findings consistent with ongoing ileus. Recommend abdominal binder when ambulating due to the possibility of incisional hernia development or fascial dehiscence. (2) S/P partial resection of colon: Status: Acute (3) S/P colostomy: Status: Acute (4) Peritonitis: Status: Acute (5) Hypothyroidism: Status: Acute (6) HTN (hypertension): Status: Acute (7) Ulcerative colitis: Status: Acute
[2024-01-06 10:31] LABS: Lymphocytes % 7 % (10-50); Macrocytosis 1+; Monocytes % 3 % (2-9); Neutrophils % 90 % (42-76); Platelet Estimate Moderate Increase; Total Cells Counted 100
--- NOTE | 2024-01-06 10:51 | P.PN_ITS ---
Subjective *Date: 01/06/24 *Time: 12:32 Interval history: Feeling better today. Having output from her ostomy. No significant drainage from incision. Afebrile overnight. Tolerating clear liquids. No chest pain or shortness of breath. Rash on back is no longer pruritic, showing some i mprovement with topical treatment. Medical Exam Vital signs and Labs for Last 24 Hours: Vital Signs Temp Pulse Pulse Resp BP BP Pulse Ox 01/06/24 09:00 01/06/24 08:00 60 01/06/24 08:00 97.4 F L 61 18 111/68 97 01/06/24 07:42 01/06/24 07:00 01/06/24 05:00 01/06/24 04:51 84 01/06/24 04:00 97.6 F 63 18 99/62 L 98 01/06/24 03:00 01/06/24 01:00 01/06/24 00:00 60 01/06/24 00:00 98.8 F 60 18 95/57 L 97 01/05/24 23:00 97.8 F 59 L 13 90/52 L 95 01/05/24 23:00 01/05/24 22:05 79 25 H 98/65 L 97 01/05/24 21:05 98.1 F 73 18 120/65 96 01/05/24 21:00 01/05/24 20:05 97.8 F 70 16 105/74 L 01/05/24 20:00 01/05/24 20:00 80 01/05/24 19:05 97.6 F 74 18 90/72 L 97 01/05/24 18:59 01/05/24 18:35 97.6 F 80 17 107/68 L 97 01/05/24 18:05 98.4 F 80 17 107/68 L 94 L 01/05/24 17:35 98.1 F 80 16 125/87 98 01/05/24 17:20 98.1 F 84 16 111/63 97 01/05/24 17:05 98.2 F 83 16 114/65 95 01/05/24 17:00 01/05/24 16:50 98.2 F 86 18 112/71 94 L 01/05/24 16:35 91 H 17 118/76 93 L 01/05/24 16:35 98.1 F 90 16 112/78 94 L 01/05/24 16:25 92 H 15 93/54 L 94 L 01/05/24 16:15 95 H 17 113/73 92 L 01/05/24 16:11 98.2 F 94 H 16 115/67 01/05/24 16:05 98.2 F 94 H 16 115/67 94 L 01/05/24 13:00 01/05/24 12:00 98.8 F 86 18 105/62 L 01/05/24 11:00 O2 Del Method 01/06/24 09:00 Room Air 01/06/24 08:00 01/06/24 08:00 Room Air 01/06/24 07:42 Room Air 01/06/24 07:00 Room Air 01/06/24 05:00 Room Air 01/06/24 04:51 01/06/24 04:00 Room Air 01/06/24 03:00 Room Air 01/06/24 01:00 Room Air 01/06/24 00:00 01/06/24 00:00 Room Air 01/05/24 23:00 Room Air 01/05/24 23:00 Room Air 01/05/24 22:05 Room Air 01/05/24 21:05 Room Air 01/05/24 21:00 Room Air 01/05/24 20:05 Room Air 01/05/24 20:00 Room Air 01/05/24 20:00 01/05/24 19:05 Room Air 01/05/24 18:59 Room Air 01/05/24 18:35 Room Air 01/05/24 18:05 Room Air 01/05/24 17:35 Room Air 01/05/24 17:20 Room Air 01/05/24 17:05 Room Air 01/05/24 17:00 Room Air 01/05/24 16:50 Room Air 01/05/24 16:35 Room Air 01/05/24 16:35 Room Air 01/05/24 16:25 Room Air 01/05/24 16:15 Room Air 01/05/24 16:11 01/05/24 16:05 Room Air 01/05/24 13:00 Room Air 01/05/24 12:00 Room Air 01/05/24 11:00 Room Air Intake and Output 01/05/24 01/06/2424 23:59 07:59 15:59 Intake Total 1240 / 2070 2400 / 3179 779 / 3179 Output Total 200 / 420 600 / 600 Balance 1040 / 1650 1800 / 2579 779 / 2579 Intake: Intake, Oral Amount 240 / 360 600 / 1020 420 / 1020 Intake, Total IV Amount 1000 / 1710 1800 / 2159 359 / 2159 Lactated Ringers 1000ML 1,000 1800 / 2109 309 / 2109 ml @ 125 mls/hr IV .Q8H [facility] Rx# :[id number] Piperacillin/Tazo 3.375 gm In 0 50 / 50 .9 % Sodium Chloride 50 ml @ 100 mls/hr IV Q8H [facility] Rx#: [id number] Output: Output, Urine Amount 200 / 400 600 / 600 Other: Number of Voids 2 Number of Unmeasured Voids 1 Weight 76.204 kg Patient Weight 01/06/24 23:59 Weight 76.204 kg Laboratory Results - last 24 hr 01/06/24 05:19: WBC 9.0, RBC 2.90 L, Hgb 9.4 L, Hct 29.7 L, MCV 102.3 H, MCH 32.5 H, MCHC 31.8, RDW 14.3, Plt Count 541 H, MPV 8.3, Neut % (Auto) 90.7 H, Lymph % (Auto) 7.5 L, [place] % (Auto) 1.6 L, Eos % (Auto) 0.1, Baso % (Auto) 0.1, Neut # (Auto) 8.1 H, Lymph # (Auto) 0.7, [place] # (Auto) 0.1, Eos # (Auto) 0.0, Baso # (Auto) 0.0, Total Counted 100, Neutrophils % (Manual) 90 H, Lymphocytes % (Manual) 7 L, Monocytes % (Manual) 3, Platelet Estimate Moderate increase, Macrocytosis 1+, Sodium 137, Potassium 3.8, Chloride 106, Carbon Dioxide 29, Anion Gap 5.8, BUN 7, Creatinine 0.70, Estimated Creat Clear 100, Estimated GFR 85, Est GFR ( Amer) 103, Glucose 127 H D, Calcium 7.7 L, Magnesium 2.3, Total Bilirubin 0.4, AST 25, ALT 20, Alkaline Phosphatase 71, Total Protein 5.5 L, Albumin 2.4 L, Globulin 3.1, Albumin/Globulin Ratio 0.8 L I & O for Labs for Last 24 Hours: Intake & Output 01/03/24 01/04/24 01/05/24 01/06/24 23:59 23:59 23:59 23:59 Intake Total 578 / 578 880 / 1160 2070 / 2070 3179 / 3179 Output Total 630 / 630 35 / 35 220 / 420 600 / 600 Balance -52 / -52 845 / 1125 1850 / 1650 2579 / 2579 Weight 69.85 kg 73.936 kg 73.9 kg 76.204 kg Microbiology Reports for the Last 24 Hours: Microbiology 01/04/24 21:50 Incision Gram Stain - Final 01/04/24 21:50 Incision Wound Culture - Preliminary 01/02/24 06:56 Abdomen Gram Stain - Final 01/02/24 06:56 Abdomen Abscess Culture - Preliminary Gram Negative Rods 01/02/24 05:20 Blood Blood Culture - Preliminary NO GROWTH AFTER 4 DAYS 01/02/24 05:27 Blood Blood Culture - Preliminary NO GROWTH AFTER 4 DAYS Constitutional: Present no acute distress, average body habitus and cooperative Head: Present atraumatic and normocephalic ENT: Present normal exam Respiratory: Present normal respiratory effort; Absent rhonchi, wheezes or crackles Cardiac: Present Reg Rate and Rhythm GI: Present soft, tenderness (Diffuse of her abdomen.) and normal bowel sounds; Absent distention Comments:: Liquid output from ostomy. Extremities: Present normal inspection and full ROM Skin: Present intact and rash (Diffuse on back, appears like contact dermatitis); Absent erythema Neuro: Present Grossly Intact, alert, awake, oriented x 3 and moves all extremities Assessment and Plan *Assessment and plan (1) Perforated sigmoid colon: Status: Acute Category: Medical Code(s): K63.1 - Perforation of intestine (nontraumatic) (2) S/P partial resection of colon: Status: Acute Category: Surgical Code(s): Z90.49 - Acquired absence of other specified parts of digestive tract (3) S/P colostomy: Status: Acute Category: Surgical Code(s): Z93.3 - Colostomy status (4) Peritonitis: Status: Acute Category: Medical Code(s): K65.9 - Peritonitis, unspecified (5) Hypothyroidism: Status: Acute Category: Medical Code(s): E03.9 - Hypothyroidism, unspecified (6) HTN (hypertension): Status: Acute Qualifiers: Hypertension type: primary hypertension Qualified Code(s): I10 - Essential (primary) hypertension Category: Medical Code(s): I10 - Essential (primary) hypertension (7) Ulcerative colitis: Status: Acute Qualifiers: Digestive disease complication type: with abscess Ulcerative colitis location: unspecified ulcerative colitis location Qualified Code(s): K51.914 - Ulcerative colitis, unspecified with abscess Category: Medical Code(s): K51.90 - Ulcerative colitis, unspecified, without complications Plan Patient is a 58-year-old female with past medical history of hypothyroidism hypertension inflammatory bowel disease who presents to the hospital due to significant abdominal pain. According to the patient she has been having abdominal pain for past 1 week however it significantly gotten worse yesterday evening and pain was unbearable 10/10 in intensity, generalized, patient otherwise denies fevers. On further evaluation in the emergency department patient was noted to have bowel perforation on CT abdomen pelvis. Status post surgical resection of perforated portion of sigmoid colon. Ostomy created. Did well overnight. Washout of incision yesterday. Discussed case with surgeon this morning. Will continue with clear liquid diet. Continues to require inpatient management. Problems addressed as follows: Perforation of sigmoid colon with Pneumoperitoneum/peritonitis s/p partial resection of colon with creation of colostomy -Status post surgery 01/01 with partial bowel resection and creation of colostomy; washout of incision on 01/04 -Discussed case with surgery, clear liquid diet today. Continue to monitor incision and output from ostomy. -Continue fluconazole 200 mg IV daily, continue Zosyn 3.375 g IV every 8 hours; continue IV vancomycin. Wound culture from abdominal cavity showing gram- negative rods -White cell count remains normal at 9. Hemoglobin 9.4, stable. -Zofran 4 mg IV every 8 hours as needed for nausea -Discontinue Dilaudid. Continue oxycodone every 4 hours as needed for severe pain. Initiate Toradol 15 mg every 6 hours as needed for moderate to severe pain -Colostomy care per nursing -CBC, CMP, magnesium ordered for the morning along with CRP. History of hypertension: Holding home losartan. Blood pressure soft at this time. Goal MAP greater than 65; blood pressure 97/51 Hypothyroid: Continue home [place] Thyroid 60 mg; TSH at goal of 1.49 Full code Clear liquid diet
--- NOTE | 2024-01-06 11:19 | PC.NURSE ---
Patient ambulated around floor twice, abdominal binder in place during ambulation
[2024-01-06] MEDS: KETOROLAC 30MG/ML VIAL 15 MG IV ×2 (12:09→20:24)
[2024-01-06] MEDS: FLUCONAZOLE IN NACL,ISO-OSM 200 MG/100 ML PIGGYBACK 50 MG IV (12:14)
--- NOTE | 2024-01-06 13:05 | PC.NURSE ---
Pt ambulated twice around floor for a total of 4 times
--- NOTE | 2024-01-06 14:59 | PC.NURSE ---
1100 alarm security or surveillance monitor ok to be taken off of patient per Dr. Thurman
[2024-01-06] MEDS: DIPHENHYDRAMINE 2% CREAM 28GM TP (15:14)
[2024-01-06] MEDS: VANCOMYCIN/WATER FOR INJ (PEG) 1.5 GM/300 ML PIGGYBACK IV (15:18)
--- NOTE | 2024-01-06 17:45 | PC.NURSE ---
VS stable and patient remained on room air. Wound dressing changed and wounds packed with dry 4X4 gauze. Pain controlled with iv pain medications. Lung sounds clear. Patient ambulating well with abdominal binder.
[2024-01-06] MEDS: PANTOPRAZOLE 40MG VIAL 40 MG IV (20:24)
[2024-01-07] VITALS (7 sets, daily range): BP systolic 105–132; BP diastolic 56–78; PULSE 56–91; RESP 16–20; TEMP 36.4–36.9; O2SAT 93–100; BMI 27.3
[2024-01-07] MEDS: PIPERACILLIN/TAZO 3.375 GM in 0.9 % SODIUM CHLORIDE 50 ML IV ×3 (01:05→17:25)
[2024-01-07] MEDS: OXYCODONE 5MG IMMEDIATE RELEASE TABLET 5 MG PO ×4 (06:00→23:35)
[2024-01-07] MEDS: NP THYROID 60 MG 1 EACH PO (06:00)
--- NOTE | 2024-01-07 06:04 | PC.NURSE ---
Patient is A&Ox4 and has been on room air. Dressing over incision is clean dry and intact. Patient has called out twice this shift complaining of abdominal pain and was treated per SEP. Patient has tolerated clear liquid diet. She has ambulated to the bathroom independently this shift.
[2024-01-07 06:20] LABS: Basophils % 0.3 % (0.1-2.0); Eosinophils # 0.1 K/mm3 (0.0-0.4); Eosinophils % 1.4 % (0.1-12.0); Hematocrit 24.6 % (37.0-47.0); Lymphocytes # 1.6 K/mm3 (0.7-4.5); Lymphocytes % 22.6 % (10-50); Mean Corpuscular HGB Conc 32.5 g/dL (31.8-35.4); Mean Corpuscular Hemoglobin 33.2 pg (27.0-31.2); Mean Corpuscular Volume 102.3 fl (81-99); Mean Platelet Volume 8.8 fl (7.4-10.4); Monocytes # 0.2 K/mm3 (0.1-1.0); Neutrophils # 5.2 K/mm3 (1.8-7.8); Neutrophils % 72.7 % (37.0-80.0); Platelet Count 573 K/mm3 (142-424); Red Cell Distribution Width 14.6 % (11.5-17.5); White Blood Count 7.2 K/mm3 (4.8-10.8)
[2024-01-07 06:22] LABS: Chloride 108 mmol/L (98-107)
[2024-01-07 06:23] LABS: Potassium 4.3 mmoL/L (3.5-5.1); Sodium 136 mmol/L (136-145)
[2024-01-07 06:25] LABS: Alanine Aminotransferase 19 U/L (12-78); Aspartate Amino Transferase 36 U/L (14-36); Blood Urea Nitrogen 7 mg/dl (7-17); Creatinine Clearance Estimated 103 mL/min (50-200); Estimated Glomerular Filt Rate 85 ml/min (>60); GFR (African American) 103 ML/MIN (>60)
[2024-01-07 06:26] LABS: Albumin Level 2.4 g/dl (3.5-5.0); Albumin/Globulin Ratio 0.8 (1.1-1.8); Alkaline Phosphatase 46 U/L (38-126); Anion Gap 4.3 mEq/L (5-15); Bilirubin,Total 0.6 mg/dl (0.2-1.3); Calcium 7.7 mg/dl (8.4-10.2); Carbon Dioxide 28 mmol/L (22.0-30.0); Globulin 2.9 g/dL (1.3-3.2); Glucose 85 mg/dl (74-100); Magnesium 2.4 mg/dl (1.6-2.3); Total Protein,Serum 5.3 g/dl (6.3-8.2)
[2024-01-07 06:31] LABS: C-Reactive Protein 89.6 mg/L (0-4)
--- NOTE | 2024-01-07 06:59 | P.PN_ITS ---
Subjective *Date: 01/07/24 *Time: 20:55 Interval history: Having little bit of pain this wearing. Denies any nausea or vomiting. Having good output. Is attempting to burp the bag on her own to learn how to handle the ostomy. Afebrile and hemodynamically stable. Tolerating clear liquids. Medical Exam Vital signs and Labs for Last 24 Hours: Vital Signs Temp Pulse Pulse Resp BP Pulse Ox O2 Del Method 01/07/24 04:50 Room Air 01/07/24 04:00 97.6 F 56 L 16 116/70 100 Room Air 01/07/24 02:57 Room Air 01/07/24 01:00 Room Air 01/07/24 00:00 97.7 F 64 16 115/67 100 Room Air 01/06/24 23:00 Room Air 01/06/24 21:00 Room Air 01/06/24 20:00 Room Air 01/06/24 20:00 97.9 F 58 L 16 95/66 L 98 Room Air 01/06/24 18:47 Room Air 01/06/24 17:00 Room Air 01/06/24 16:00 97.4 F L 63 18 104/64 L 97 Room Air 01/06/24 14:50 Room Air 01/06/24 13:05 Room Air 01/06/24 12:00 97.6 F 63 20 96/62 L Room Air 01/06/24 11:05 Room Air 01/06/24 09:00 Room Air 01/06/24 08:00 60 01/06/24 08:00 97.4 F L 61 18 111/68 97 Room Air 01/06/24 07:42 Room Air 01/06/24 07:00 Room Air Intake and Output 01/06/24 01/06/24 01/07/24 15:59 23:59 07:59 Intake Total 1349 / 5039 940 / 5039 350 / 350 Output Total 200 / 1100 300 / 300 Balance 1349 / 3939 740 / 3939 50 / 50 Intake: Intake, Oral Amount 990 / 2530 640 / 2530 300 / 300 Intake, Total IV Amount 359 / 2509 300 / 2509 50 / 50 Lactated Ringers 1000ML 1,000 309 / 2109 ml @ 125 mls/hr IV .Q8H [facility] Rx# :[id number] Piperacillin/Tazo 3.375 gm In 0 50 / 100 50 / 50 .9 % Sodium Chloride 50 ml @ 100 mls/hr IV Q8H [facility] Rx#: [id number] Vancomycin/Water For Inj (Peg) 300 / 300 1.5 gm In 300 ml @ 150 mls/hr IV Q18H [facility] Rx#:[id number] Output: Output, Urine Amount 200 / 1100 300 / 300 Other: Number of Unmeasured Voids 1 Weight 77.111 kg Patient Weight 01/07/24 23:59 Weight 77.111 kg Laboratory Results - last 24 hr 01/06/24 05:19: Total Counted 100, Neutrophils % (Manual) 90 H, Lymphocytes % (Manual) 7 L, Monocytes % (Manual) 3, Platelet Estimate Moderate increase, Macrocytosis 1+ 01/07/24 05:40: WBC 7.2, RBC 2.40 L, Hgb 8.0 L, Hct 24.6 L, MCV 102.3 H, MCH 33.2 H, MCHC 32.5, RDW 14.6, Plt Count 573 H, MPV 8.8, Neut % (Auto) 72.7, Lymph % (Auto) 22.6, [place] % (Auto) 3.0, Eos % (Auto) 1.4, Baso % (Auto) 0.3, Neut # (Auto) 5.2, Lymph # (Auto) 1.6, [place] # (Auto) 0.2, Eos # (Auto) 0.1, Baso # (Auto) 0.0, Sodium 136, Potassium 4.3, Chloride 108 H, Carbon Dioxide 28, Anion Gap 4.3 L, BUN 7, Creatinine 0.70, Estimated Creat Clear 103, Estimated GFR 85, Est GFR ( Amer) 103, Glucose 85, Calcium 7.7 L, Magnesium 2.4 H, Total Bilirubin 0.6, AST 36 D, ALT 19, Alkaline Phosphatase 46, C-Reactive Protein 89.6 H D, Total Protein 5.3 L, Albumin 2.4 L, Globulin 2.9, Albumin/Globulin Ratio 0.8 L I & O for Labs for Last 24 Hours: Intake & Output 01/04/24 01/05/24 01/06/24 01/07/24 23:59 23:59 23:59 23:59 Intake Total 880 / 1160 2070 / 2070 4689 / 5039 350 / 350 Output Total 35 / 35 220 / 420 800 / 1100 300 / 300 Balance 845 / 1125 1850 / 1650 3889 / 3939 50 / 50 Weight 73.936 kg 73.9 kg 76.204 kg 77.111 kg Microbiology Reports for the Last 24 Hours: Microbiology 01/02/24 05:20 Blood Blood Culture - Preliminary NO GROWTH AFTER 5 DAYS 01/02/24 05:27 Blood Blood Culture - Preliminary NO GROWTH AFTER 5 DAYS 01/05/24 15:25 Abdomen Gram Stain - Final 01/05/24 15:25 Abdomen Abscess Culture - Preliminary NO GROWTH AFTER 24 HOURS 01/04/24 21:50 Incision Gram Stain - Final 01/04/24 21:50 Incision Wound Culture - Preliminary 01/02/24 06:56 Abdomen Gram Stain - Final 01/02/24 06:56 Abdomen Abscess Culture - Preliminary Gram Negative Rods Constitutional: Present no acute distress, average body habitus and cooperative Head: Present atraumatic and normocephalic ENT: Present normal exam Respiratory: Present normal respiratory effort; Absent rhonchi, wheezes or crackles Cardiac: Present Reg Rate and Rhythm GI: Present soft, tenderness (Improving, mainly over right lower quadrant and s urgical incision.) and normal bowel sounds; Absent distention Comments:: Liquid output from ostomy. Extremities: Present normal inspection and full ROM Skin: Present intact and rash; Absent erythema Neuro: Present Grossly Intact, alert, awake, oriented x 3 and moves all extremit ies Assessment and Plan *Assessment and plan (1) Perforated sigmoid colon: Status: Acute Category: Medical Code(s): K63.1 - Perforation of intestine (nontraumatic) (2) S/P partial resection of colon: Status: Acute Category: Surgical Code(s): Z90.49 - Acquired absence of other specified parts of digestive tract (3) S/P colostomy: Status: Acute Category: Surgical Code(s): Z93.3 - Colostomy status (4) Peritonitis: Status: Acute Category: Medical Code(s): K65.9 - Peritonitis, unspecified (5) Hypothyroidism: Status: Acute Category: Medical Code(s): E03.9 - Hypothyroidism, unspecified (6) HTN (hypertension): Status: Acute Qualifiers: Hypertension type: primary hypertension Qualified Code(s): I10 - Essential (primary) hypertension Category: Medical Code(s): I10 - Essential (primary) hypertension (7) Ulcerative colitis: Status: Acute Qualifiers: Digestive disease complication type: with abscess Ulcerative colitis location: unspecified ulcerative colitis location Qualified Code(s): K51.914 - Ulcerative colitis, unspecified with abscess Category: Medical Code(s): K51.90 - Ulcerative colitis, unspecified, without complications (8) Contact dermatitis: Status: Acute Category: Medical Code(s): L25.9 - Unspecified contact dermatitis, unspecified cause (9) Anemia: Status: Acute Category: Medical Code(s): D64.9 - Anemia, unspecified Plan Patient is a 58-year-old female with past medical history of hypothyroidism hypertension inflammatory bowel disease who presents to the hospital due to significant abdominal pain. According to the patient she has been having abdominal pain for past 1 week however it significantly gotten worse yesterday evening and pain was unbearable 10/10 in intensity, generalized, patient otherwise denies fevers. On further evaluation in the emergency department patient was noted to have bowel perforation on CT abdomen pelvis. Status post surgical resection of perforated portion of sigmoid colon. Ostomy created. Did well overnight. Seeing improvement in abdominal pain. Tolerating advancement of diet. Anticipate discharge in the next day or 2. Problems addressed as foll ows: Perforation of sigmoid colon with Pneumoperitoneum/peritonitis s/p partial resection of colon with creation of colostomy Ulcerative colitis -Status post surgery 01/01 with partial bowel resection and creation of colostomy; washout of incision on 01/04 -Discussed case with surgery, advance diet to full liquids. Continue to monitor incision and output from ostomy. -Discontinue fluconazole. Will continue Zosyn 3.375 g IV every 8 hours; continue IV vancomycin. Wound culture from abdominal cavity showing E. coli sensitive to Zosyn. Plan for 10 days of antibiotics. Will discontinue vancomy lisa if cultures do not show gram-positive cocci in the next 24 hours. -White cell count remains normal at 7.2. Kidney function normal with BUN of 7, creatinine 0.7. CRP down to 89. -Zofran 4 mg IV every 8 hours as needed for nausea - Continue oxycodone every 4 hours as needed for severe pain. Took 4 doses yesterday. Continue Toradol 15 mg every 6 hours as needed for moderate to severe pain. -Colostomy care per nursing -CBC, CMP, magnesium ordered for the morning along with CRP. - Initiate mesalamine 1600 mg 3 times a day for ulcerative colitis. Steroids are contraindicated. Unable to initiate immune modulators at this time due to infection. Anemia: Continues to see slight trickle down of hemoglobin. Hemoglobin 8 today. Monitor for transfusion needs. Transfusion threshold hemoglobin less than 7. History of hypertension: Holding home losartan. Blood pressure soft at this time. Goal MAP greater than 65; blood pressure 105/67 Hypothyroid: Continue home [place] Thyroid 60 mg; TSH at goal of 1.49 Rash: Consistent with contact dermatitis. Continue topical Benadryl up to 3 times a day as needed Full code Full liquid diet
--- NOTE | 2024-01-07 07:54 | P.PNANES_ITS ---
[facility] Anesthesia Record Part II Anesthesia Record Part II Discharge Time: 16:35 Destination: Medical Surgical Department PACU nurse assessment reviewed?: Yes Patient Condition:: Good Anesthesia Complications:: None Swallowing reflex intact?: Yes Airway Patency: Patent Cyanosis?: No Blood Pressure: 118/76 SaO2: 93 Respiratory Rate: 17 Pulse Rate: 91 Temperature: 98.2 F Mental Status: Alert & Oriented Pain level:: 5 Nausea and/or vomitting:: None Intake, IV Amount: 0 Hydration: Adequate
[2024-01-07 09:40] LABS: Vancomycin,Trough 8.4 ug/mL (5.0-10.0)
--- NOTE | 2024-01-07 10:40 | EXP.SURG.PN ---
Subjective Narrative: Patient has been tolerating clear liquid diet. Less abdominal bloating. Continues to have abdominal soreness . White blood cell count normal at 7.2. Hemoglobin 8.0. Exam Data for Last 24 hours Vital signs and Labs for Last 24 Hours: Temp Pulse Resp BP Pulse Ox O2 Del Method O2 Flow Rate 98.1 F 62 18 122/75 99 Room Air 2 01/07/24 08:00 01/07/24 08:00 01/07/24 08:00 01/07/24 08:00 01/07/24 08:00 01/07/24 09:00 01/03/24 18:43 Laboratory Results - last 24 hr 01/07/24 05:40: WBC 7.2, RBC 2.40 L, Hgb 8.0 L, Hct 24.6 L, MCV 102.3 H, MCH 33.2 H, MCHC 32.5, RDW 14.6, Plt Count 573 H, MPV 8.8, Neut % (Auto) 72.7, Lymph % (Auto) 22.6, [place] % (Auto) 3.0, Eos % (Auto) 1.4, Baso % (Auto) 0.3, Neut # (Auto) 5.2, Lymph # (Auto) 1.6, [place] # (Auto) 0.2, Eos # (Auto) 0.1, Baso # (Auto) 0.0, Sodium 136, Potassium 4.3, Chloride 108 H, Carbon Dioxide 28, Anion Gap 4.3 L, BUN 7, Creatinine 0.70, Estimated Creat Clear 103, Estimated GFR 85, Est GFR ( Amer) 103, Glucose 85, Calcium 7.7 L, Magnesium 2.4 H, Total Bilirubin 0.6, AST 36 D, ALT 19, Alkaline Phosphatase 46, C-Reactive Protein 89.6 H D, Total Protein 5.3 L, Albumin 2.4 L, Globulin 2.9, Albumin/Globulin Ratio 0.8 L 01/07/24 08:05: Vancomycin Trough 8.4 I & O for Last 24 hours: Intake & Output 01/04/24 01/05/24 01/06/24 01/07/24 11:59 11:59 11:59 11:59 Intake Total 578 / 578 1460 / 1460 4669 / 4669 2380 / 2380 Output Total 45 / 45 40 / 40 800 / 800 500 / 500 Balance 533 / 533 1420 / 1420 3869 / 3869 1880 / 1880 Weight 163 lb 162 lb 14.746 oz 168 lb 170 lb Microbiology Reports for the Last 24 Hours: Microbiology 01/05/24 15:25 Abdomen Gram Stain - Final 01/05/24 15:25 Abdomen Abscess Culture - Preliminary 01/04/24 21:50 Incision Gram Stain - Final 01/04/24 21:50 Incision Wound Culture - Preliminary Gram Negative Rods Gram Negative Rods#2 01/02/24 05:27 Blood Blood Culture - Final NO GROWTH AFTER 5 DAYS 01/02/24 05:20 Blood Blood Culture - Final NO GROWTH AFTER 5 DAYS 01/02/24 06:56 Abdomen Gram Stain - Final 01/02/24 06:56 Abdomen Abscess Culture - Final Escherichia coli *Routine Abdominal Exam Comments: Somewhat distended. Erythema improving. Wound with thin brownish drainage. Fascia seemingly intact. Progress Note: A&P Assessment and plan (1) Perforated sigmoid colon: Status: Acute Assessment and plan: Continue antibiotics. Continue wound care. If drainage continues to be a problem consideration may be given for possible negative pressure wound therapy type dressing. Monitor hemoglobin. Could require transfusion. Slowly advance diet. Pathology still pending. (2) S/P partial resection of colon: Status: Acute (3) S/P colostomy: Status: Acute (4) Peritonitis: Status: Acute (5) Hypothyroidism: Status: Acute (6) HTN (hypertension): Status: Acute (7) Ulcerative colitis: Status: Acute
--- NOTE | 2024-01-07 11:14 | P.CONPHA_ITS ---
Pharmacy Consult Date: 01/07/24 Time: 11:14 Referring provider: DR. XAVIER Reason for Consult:: VANCOMYCIN TROUGH LEVEL AND DOSE CHANGE Allergies Allergy/AdvReac Type Severity Reaction Status Date / Time codeine [CODEINE] Allergy Mild Verified 12/15/23 16:33 Sulfa (Sulfonamide Allergy Mild Verified 12/15/23 16:33 Antibiotics) [SULFA (SULFONAMIDE ANTIBIOTICS)] Home Medications Medication Instructions Recorded Confirmed Type progesterone micronized 100 mg 200 mg PO HS 10/07/20 01/02/24 History capsule losartan 50 mg-hydrochlorothiazide 1 tab PO DAILY #30 tabs 11/27/22 01/02/24 Rx 12.5 mg tablet thyroid (pork) 60 mg tablet ([employer] 60 mg PO DAILY 12/15/23 01/02/24 History Thyroid) New Prescriptions to Start Prescriptions: Height: 1.68 m Weight: 77.111 kg Laboratory Results:: Laboratory Results - last 24 hr 01/07/24 05:40: WBC 7.2, RBC 2.40 L, Hgb 8.0 L, Hct 24.6 L, MCV 102.3 H, MCH 33.2 H, MCHC 32.5, RDW 14.6, Plt Count 573 H, MPV 8.8, Neut % (Auto) 72.7, Lymph % (Auto) 22.6, [place] % (Auto) 3.0, Eos % (Auto) 1.4, Baso % (Auto) 0.3, Neut # (Auto) 5.2, Lymph # (Auto) 1.6, [place] # (Auto) 0.2, Eos # (Auto) 0.1, Baso # (Auto) 0.0, Sodium 136, Potassium 4.3, Chloride 108 H, Carbon Dioxide 28, Anion Gap 4.3 L, BUN 7, Creatinine 0.70, Estimated Creat Clear 103, Estimated GFR 85, Est GFR ( Amer) 103, Glucose 85, Calcium 7.7 L, Magnesium 2.4 H, Total Bilirubin 0.6, AST 36 D, ALT 19, Alkaline Phosphatase 46, C-Reactive Protein 89.6 H D, Total Protein 5.3 L, Albumin 2.4 L, Globulin 2.9, Albumin/Globulin Ratio 0.8 L 01/07/24 08:05: Vancomycin Trough 8.4 Medical History: Medical History (Updated 01/03/24 @ 16:56 by Beto Xavier MD) Hypothyroidism HTN (hypertension) Ulcerative colitis Crohn disease Parotitis Facial swelling Assessment and Plan Assessment and plan all Dx Assessment and Plan for all problems:: Based on patient factors and Vancomycin trough level of 8.9, recommend changing Vancomycin dose to 1,250mg every 12 hours. Pharmacy will continue to monitor and will adjust dose as appropriate. -Tello Brandt, NateD
[2024-01-07] MEDS: VANCOMYCIN/WATER FOR INJ (PEG) 1.25 GM/250 ML PIGGYBACK IV ×2 (11:26→23:35)
--- NOTE | 2024-01-07 12:41 | PC.NURSE ---
ultrasound guided IV placed in the rt ac by KERLINE ORTIZ
[2024-01-07] MEDS: MESALAMINE 800MG TABLET DR 1600 MG PO ×2 (13:16→20:27)
[2024-01-07] MEDS: ONDANSETRON 4MG/2ML VIAL 4 MG IV (17:38)
--- NOTE | 2024-01-07 18:22 | PC.NURSE ---
PT IS RESTING IN BED. ALERT AND ORIENTED X4. AMBULATES IN THE ARVIZU AND TO THE BATHROOM. PT HAS NEEDED MINIMAL ASSISTANCE WITH OSTOMY CARE. ABDOMEN SOFT/TENDERNESS NOTED TO RLQ. HYPERACTIVE BOWEL SOUNDS. LUNG SOUNDS CLEAR. NO SWELLING NOTED TO BLE. NEW US GUIDED IV ACCESS NOTED TO RFA. MEDICATED PER MAR FOR DISCOMFORT. TOLERATING FULL LIQUIDS. WILL CONTINUE TO MONITOR.
[2024-01-07] MEDS: KETOROLAC 30MG/ML VIAL 15 MG IV (19:26)
[2024-01-07] MEDS: PANTOPRAZOLE 40MG TABLET 40 MG PO (20:28)
[2024-01-08] VITALS: BP 97/63; PULSE 72; RESP 16; TEMP 37.1; O2SAT 97
[2024-01-08] MEDS: PIPERACILLIN/TAZO 3.375 GM in 0.9 % SODIUM CHLORIDE 50 ML IV ×2 (01:42→10:29)
[2024-01-08] MEDS: KETOROLAC 30MG/ML VIAL 15 MG IV ×4 (01:44→20:28)
[2024-01-08 04:00] VITALS: BP 98/61; PULSE 70; RESP 16; TEMP 36.8; O2SAT 95; BMI 27.3
[2024-01-08] MEDS: OXYCODONE 5MG IMMEDIATE RELEASE TABLET 5 MG PO ×4 (04:16→18:23)
--- NOTE | 2024-01-08 05:41 | PC.NURSE ---
Pt is alert and oriented. Ambulates to the restroom independently. Dressing changed due to ostomy leaking, ostomy changed as well. Pt tolerated okay. Complained of pain, treated per mar. No nausea/vomiting. Pt burping ostomy independently. Significant gas noted throughout the night by patient. Abdomen mildly distended and tender RLQ. Bowel sounds hyperactive. Back rash noted. Call light in reach.
[2024-01-08] MEDS: NP THYROID 60 MG 1 EACH PO (06:21)
[2024-01-08] MEDS: DIPHENHYDRAMINE 2% CREAM 28GM TP (06:21)
[2024-01-08 07:57] LABS: Basophils % 0.4 % (0.1-2.0); Eosinophils # 0.2 K/mm3 (0.0-0.4); Eosinophils % 2.3 % (0.1-12.0); Hematocrit 30.6 % (37.0-47.0); Hemoglobin 9.6 g/dL (12.2-16.2); Lymphocytes # 1.6 K/mm3 (0.7-4.5); Lymphocytes % 24.4 % (10-50); Mean Corpuscular HGB Conc 31.3 g/dL (31.8-35.4); Mean Corpuscular Hemoglobin 32.4 pg (27.0-31.2); Mean Corpuscular Volume 103.4 fl (81-99); Mean Platelet Volume 8.6 fl (7.4-10.4); Monocytes # 0.2 K/mm3 (0.1-1.0); Monocytes % 2.9 % (1.7-9.3); Neutrophils # 4.5 K/mm3 (1.8-7.8); Neutrophils % 70.1 % (37.0-80.0); Platelet Count 699 K/mm3 (142-424); Red Blood Count 2.96 M/mm3 (4.20-5.40); Red Cell Distribution Width 14.4 % (11.5-17.5); White Blood Count 6.4 K/mm3 (4.8-10.8)
[2024-01-08 08:00] VITALS: BP 114/67; PULSE 89; RESP 16; TEMP 36.8; O2SAT 98
[2024-01-08 08:07] LABS: Alanine Aminotransferase 23 U/L (12-78); Albumin Level 2.5 g/dl (3.5-5.0); Albumin/Globulin Ratio 0.8 (1.1-1.8); Alkaline Phosphatase 72 U/L (38-126); Anion Gap 2.3 mEq/L (5-15); Aspartate Amino Transferase 25 U/L (14-36); Bilirubin,Total 0.4 mg/dl (0.2-1.3); Blood Urea Nitrogen 7 mg/dl (7-17); Carbon Dioxide 30 mmol/L (22.0-30.0); Chloride 106 mmol/L (98-107); Creatinine Clearance Estimated 81 mL/min (50-200); Estimated Glomerular Filt Rate 64 ml/min (>60); GFR (African American) 77 ML/MIN (>60); Glucose 74 mg/dl (74-100); Potassium 3.3 mmoL/L (3.5-5.1); Sodium 135 mmol/L (136-145); Total Protein,Serum 5.5 g/dl (6.3-8.2)
[2024-01-08] MEDS: ONDANSETRON 4MG/2ML VIAL 4 MG IV (08:20)
[2024-01-08] MEDS: MESALAMINE 800MG TABLET DR 1600 MG PO ×3 (08:21→20:28)
--- NOTE | 2024-01-08 08:45 | P.PN_ITS ---
Subjective Narrative: Patient complains of bellyache . She is tolerating full liquids. No nausea. Drainage from wound. Complains of some pain in the right lower abdomen. Exam Data for Last 24 hours Vital signs and Labs for Last 24 Hours: Temp Pulse Resp BP Pulse Ox O2 Del Method O2 Flow Rate 98.2 F 70 16 98/61 L 95 Room Air 2 01/08/24 04:00 01/08/24 04:00 01/08/24 04:00 01/08/24 04:00 01/08/24 04:00 01/08/24 06:48 01/03/24 18:43 Laboratory Results - last 24 hr 01/07/24 08:05: Vancomycin Trough 8.4 01/08/24 07:20: WBC 6.4, RBC 2.96 L, Hgb 9.6 L, Hct 30.6 L, MCV 103.4 H, MCH 32.4 H, MCHC 31.3 L, RDW 14.4, Plt Count 699 H, MPV 8.6, Neut % (Auto) 70.1, Lymph % (Auto) 24.4, [place] % (Auto) 2.9, Eos % (Auto) 2.3, Baso % (Auto) 0.4, Neut # (Auto) 4.5, Lymph # (Auto) 1.6, [place] # (Auto) 0.2, Eos # (Auto) 0.2, Baso # (Auto) 0.0, Sodium 135 L, Potassium 3.3 L D, Chloride 106, Carbon Dioxide 30, Anion Gap 2.3 L, BUN 7, Creatinine 0.90 D, Estimated Creat Clear 81, Estimated GFR 64, Est GFR ( Amer) 77 D, Glucose 74, Calcium 8.0 L, Total Bilirubin 0.4, AST 25 D, ALT 23, Alkaline Phosphatase 72, Total Protein 5.5 L, Albumin 2.5 L, Globulin 3.0, Albumin/Globulin Ratio 0.8 L I & O for Last 24 hours: Intake & Output 01/05/24 01/06/24 01/07/24 01/08/24 11:59 11:59 11:59 11:59 Intake Total 1460 / 1460 4669 / 4669 2380 / 2380 1371 / 1371 Output Total 40 / 40 800 / 800 500 / 500 0 / 0 Balance 1420 / 1420 3869 / 3869 1880 / 1880 1371 / 1371 Weight 162 lb 14.746 oz 168 lb 170 lb 170 lb 0.01 oz Microbiology Reports for the Last 24 Hours: Microbiology 01/04/24 21:50 Incision Gram Stain - Final 01/04/24 21:50 Incision Wound Culture - Final Enterobacter cloacae Proteus vulgaris 01/05/24 15:25 Abdomen Gram Stain - Final 01/05/24 15:25 Abdomen Abscess Culture - Preliminary 01/02/24 05:27 Blood Blood Culture - Final NO GROWTH AFTER 5 DAYS 01/02/24 05:20 Blood Blood Culture - Final NO GROWTH AFTER 5 DAYS 01/02/24 06:56 Abdomen Gram Stain - Final 01/02/24 06:56 Abdomen Abscess Culture - Final Escherichia coli *Routine Abdominal Exam Abdominal: Present soft, tenderness and ostomy Comments: Tenderness in right lower quadrant. Erythema and induration improved. Ostomy somewhat inflamed but functioning. Progress Note: A&P Assessment and plan (1) Perforated sigmoid colon: Status: Acute Assessment and plan: Slowly advance diet. Continue antibiotics. Continue wound care per (2) S/P partial resection of colon: Status: Acute (3) S/P colostomy: Status: Acute (4) Peritonitis: Status: Acute (5) Hypothyroidism: Status: Acute (6) HTN (hypertension): Status: Acute (7) Ulcerative colitis: Status: Acute (8) Contact dermatitis: Status: Acute (9) Anemia: Status: Acute
[2024-01-08 09:57] LABS: Magnesium 1.9 mg/dl (1.6-2.3)
[2024-01-08] MEDS: VANCOMYCIN/WATER FOR INJ (PEG) 1.25 GM/250 ML PIGGYBACK IV (11:45)
[2024-01-08 12:00] VITALS: BP 101/65; PULSE 68; RESP 16; TEMP 36.7; O2SAT 96
--- NOTE | 2024-01-08 13:15 | EXP.ACUTE.PN ---
Subjective *Date: 01/08/24 *Time: 13:15 Interval history: Had an episode last night of leakage from her ostomy bag. Still having some right-sided lower abdominal pain. Denies any nausea or vomiting. Tolerating diet. No overt bleeding. Afebrile. Stable on room air. Medical Exam Vital signs and Labs for Last 24 Hours: Vital Signs Temp Pulse Resp BP Pulse Ox O2 Del Method 01/08/24 12:00 98.1 F 68 16 101/65 L 96 Room Air 01/08/24 10:39 Room Air 01/08/24 09:00 Room Air 01/08/24 08:00 Room Air 01/08/24 08:00 98.2 F 89 16 114/67 98 Room Air 01/08/24 06:48 Room Air 01/08/24 05:00 Room Air 01/08/24 04:00 98.2 F 70 16 98/61 L 95 Room Air 01/08/24 03:00 Room Air 01/08/24 00:40 Room Air 01/08/24 00:00 98.7 F 72 16 97/63 L 97 Room Air 01/07/24 23:00 Room Air 01/07/24 21:00 Room Air 01/07/24 20:00 Room Air 01/07/24 20:00 98.2 F 82 16 105/67 L 98 Room Air 01/07/24 18:30 Room Air 01/07/24 16:45 Room Air 01/07/24 16:00 98.5 F 73 20 132/78 99 Room Air 01/07/24 15:00 Room Air Intake and Output 01/07/24 01/08/24 01/08/24 23:59 07:59 15:59 Intake Total 781 / 2241 420 / 660 240 / 660 Output Total 0 / 300 0 / 0 Balance 781 / 1941 420 / 660 240 / 660 Intake: Intake, Oral Amount 440 / 1550 120 / 360 240 / 360 Intake, Total IV Amount 341 / 691 300 / 300 Piperacillin/Tazo 3.375 gm In 0 41 / 141 50 / 50 .9 % Sodium Chloride 50 ml @ 100 mls/hr IV Q8H [facility] Rx#: [id number] Vancomycin/Water For Inj (Peg) 250 / 250 1.25 gm In 250 ml @ 125 mls/hr IV Q12H P[facility] Rx#:[id number] Vancomycin/Water For Inj (Peg) 300 / 300 1.5 gm In 300 ml @ 150 mls/hr IV Q18H ON LICENSE OF [facility] Rx#:[id number] Output: Output, Urine Amount 0 / 300 0 / 0 Other: Number of Unmeasured Voids 1 1 Number of Bowel Movements 1 Weight 77.111 kg Patient Weight 01/08/24 23:59 Weight 77.111 kg Laboratory Results - last 24 hr 01/08/24 07:20: WBC 6.4, RBC 2.96 L, Hgb 9.6 L, Hct 30.6 L, MCV 103.4 H, MCH 32.4 H, MCHC 31.3 L, RDW 14.4, Plt Count 699 H, MPV 8.6, Neut % (Auto) 70.1, Lymph % (Auto) 24.4, [place] % (Auto) 2.9, Eos % (Auto) 2.3, Baso % (Auto) 0.4, Neut # (Auto) 4.5, Lymph # (Auto) 1.6, [place] # (Auto) 0.2, Eos # (Auto) 0.2, Baso # (Auto) 0.0, Sodium 135 L, Potassium 3.3 L D, Chloride 106, Carbon Dioxide 30, Anion Gap 2.3 L, BUN 7, Creatinine 0.90 D, Estimated Creat Clear 81, Estimated GFR 64, Est GFR ( Amer) 77 D, Glucose 74, Calcium 8.0 L, Magnesium 1.9 D, Total Bilirubin 0.4, AST 25 D, ALT 23, Alkaline Phosphatase 72, Total Protein 5.5 L, Albumin 2.5 L, Globulin 3.0, Albumin/Globulin Ratio 0.8 L I & O for Labs for Last 24 Hours: Intake & Output 01/05/24 01/06/24 01/07/24 01/08/24 23:59 23:59 23:59 23:59 Intake Total 2069 / 0 4689 / 5039 1821 / 2241 660 / 660 Output Total 220 / 420 800 / 1100 300 / 300 0 / 0 Balance 1850 / 1650 3889 / 3939 1521 / 1941 660 / 660 Weight 73.9 kg 76.204 kg 77.111 kg 77.111 kg Microbiology Reports for the Last 24 Hours: Microbiology 01/05/24 15:25 Abdomen Gram Stain - Final 01/05/24 15:25 Abdomen Abscess Culture - Preliminary Gram Negative Rods Gram Negative Rods#2 01/04/24 21:50 Incision Gram Stain - Final 01/04/24 21:50 Incision Wound Culture - Final Enterobacter cloacae Proteus vulgaris Constitutional: Present no acute distress, average body habitus and cooperative Head: Present atraumatic and normocephalic ENT: Present normal exam Respiratory: Present normal respiratory effort; Absent rhonchi, wheezes or crackles Cardiac: Present Reg Rate and Rhythm GI: Present soft, tenderness (Tender right lower abdomen, improved elsewhere in abdomen.) and normal bowel sounds; Absent distention Comments:: Loose stool appearing output from ostomy. Surgical incision with no surrounding erythema, clean bandage at this time. Extremities: Present normal inspection and full ROM Skin: Present intact and rash (Improving on back); Absent erythema Neuro: Present Grossly Intact, alert, awake, oriented x 3 and moves all extremities Assessment and Plan *Assessment and plan (1) Perforated sigmoid colon: Status: Acute Category: Medical Code(s): K63.1 - Perforation of intestine (nontraumatic) (2) S/P partial resection of colon: Status: Acute Category: Surgical Code(s): Z90.49 - Acquired absence of other specified parts of digestive tract (3) S/P colostomy: Status: Acute Category: Surgical Code(s): Z93.3 - Colostomy status (4) Peritonitis: Status: Acute Category: Medical Code(s): K65.9 - Peritonitis, unspecified (5) Hypothyroidism: Status: Acute Category: Medical Code(s): E03.9 - Hypothyroidism, unspecified (6) HTN (hypertension): Status: Acute Qualifiers: Hypertension type: primary hypertension Qualified Code(s): I10 - Essential (primary) hypertension Category: Medical Code(s): I10 - Essential (primary) hypertension (7) Ulcerative colitis: Status: Acute Qualifiers: Digestive disease complication type: with abscess Ulcerative colitis location: unspecified ulcerative colitis location Qualified Code(s): K51.914 - Ulcerative colitis, unspecified with abscess Category: Medical Code(s): K51.90 - Ulcerative colitis, unspecified, without complications (8) Contact dermatitis: Status: Acute Category: Medical Code(s): L25.9 - Unspecified contact dermatitis, unspecified cause (9) Anemia: Status: Acute Category: Medical Code(s): D64.9 - Anemia, unspecified Plan Patient is a 58-year-old female with past medical history of hypothyroidism hypertension inflammatory bowel disease who presents to the hospital due to significant abdominal pain. According to the patient she has been having abdominal pain for past 1 week however it significantly gotten worse yesterday evening and pain was unbearable 10/10 in intensity, generalized, patient otherwise denies fevers. On further evaluation in the emergency department patient was noted to have bowel perforation on CT abdomen pelvis. Status post surgical resection of perforated portion of sigmoid colon. Ostomy created. Advance diet today. Continues to make good daily slow progress. Anticipate discharge in the next day or 2. Problems addressed as follows: Perforation of sigmoid colon with Pneumoperitoneum/peritonitis s/p partial resection of colon with creation of colostomy Ulcerative colitis -Status post surgery 01/01 with partial bowel resection and creation of colostomy; washout of incision on 01/04 -Discussed case with surgery, advance diet to low residue diet. Continue to monitor incision. Will transition antibiotics to Levaquin given sensitivity. Culture from incision and abdominal cavity show Enterobacter, Proteus, E. coli. All sensitive to Levaquin. Will complete 7 days total of antibiotics from washout. Last day of antibiotics 01/10. -White cell count remains normal at 6.4, creatinine 0.9. -Zofran 4 mg IV every 8 hours as needed for nausea - Continue oxycodone 5 mg, transition to every 6 hours as needed. Took 4 doses yesterday. Continue Toradol 15 mg every 6 hours as needed for moderate to severe pain. -Colostomy care per nursing -CBC, CMP, magnesium ordered for the morning along with CRP. - mesalamine 1600 mg 3 times a day for ulcerative colitis. Steroids are contraindicated. Unable to initiate immune modulators at this time due to infection. Anemia: Hemoglobin improved to 9.6 today. Monitor for transfusion needs. Transfusion threshold hemoglobin less than 7. History of hypertension: Holding home losartan. Blood pressure soft at this time. Goal MAP greater than 65; blood pressure 105/67 Hypothyroid: Continue home [place] Thyroid 60 mg; TSH at goal of 1.49 Rash: Consistent with contact dermatitis. Continue topical Benadryl up to 3 times a day as needed Full code Low residue diet Surrogate is Wai
[2024-01-08] MEDS: LEVOFLOXACIN/D5W 750 MG/150 ML 750 MG/150 ML PIGGYBACK 100 MG IV (15:02)
--- NOTE | 2024-01-08 15:48 | PC.NURSE ---
PT IS RESTING IN BED WITH FAMILY AT BEDSIDE. ALERT AND ORIENTED X4. PT TOLERATED A FEW BITES OF LOW RESIDUE DIET FOR LUNCH. DRINKING LIQUIDS. AMBULATES IN THE ARVIZU AND TO THE BATHROOM. PT TOLERATED SHOWER THIS SHIFT. AFTER SHOWER NEW ABDOMINAL DRESSING AND HOME OSTOMY WAS APPLIED. PT'S ASSISTED WITH WOUND AND OSTOMY CARE. ABDOMEN SOFT/TENDERNESS NOTED AT THE BOTTOM OF INCISION. HYPERACTIVE BOWEL SOUNDS. LUNG SOUNDS CLEAR. MEDICATED PER MAR FOR DISCOMFORT. WILL CONTINUE TO MONITOR.
[2024-01-08 16:00] VITALS: BP 122/80; PULSE 78; RESP 16; TEMP 36.6; O2SAT 97
[2024-01-08 20:00] VITALS: BP 113/67; PULSE 92; RESP 16; TEMP 37.4; O2SAT 98
[2024-01-08] MEDS: PANTOPRAZOLE 40MG TABLET 40 MG PO (20:28)
[2024-01-09] VITALS: BP 108/63; PULSE 76; RESP 17; TEMP 36.7; O2SAT 99
[2024-01-09] MEDS: OXYCODONE 5MG IMMEDIATE RELEASE TABLET 5 MG PO ×2 (00:17→06:38)
[2024-01-09 04:00] VITALS: BP 118/71; PULSE 82; RESP 16; TEMP 37.4; O2SAT 98; BMI 27.3
[2024-01-09] MEDS: KETOROLAC 30MG/ML VIAL 15 MG IV (04:08)
--- NOTE | 2024-01-09 05:35 | PC.NURSE ---
Patient is alert and oriented x4. Patient has rested throughout most of the night. Her bowel sounds were hyperactive upon auscultation. Patient reported tenderness across her abdomen (with and without palpation); she has been treated per MAR accordingly (oxycodone and toradol) for pain control. She has also received her bedtime meds per SEP. Patient was given fresh water and a amaya-flavored popsicle during this shift. Patients abdominal dressing remains intact. Her ostomy bag was emptied once during this shift; stool was brown in color, liquid in consistency, and strong in odor. Patient observed the bag being emptied. Patient has gotten up to the bathroom to void a couple times this shift; ambulation has been tolerated well. Patient is awake and resting comfortably at this time. No acute changes noted.
[2024-01-09] MEDS: NP THYROID 60 MG 1 EACH PO (06:34)
[2024-01-09 07:08] LABS: Basophils % 0.4 % (0.1-2.0); Eosinophils # 0.1 K/mm3 (0.0-0.4); Eosinophils % 1.6 % (0.1-12.0); Hematocrit 28.3 % (37.0-47.0); Hemoglobin 9.1 g/dL (12.2-16.2); Lymphocytes # 1.3 K/mm3 (0.7-4.5); Lymphocytes % 22.1 % (10-50); Mean Corpuscular HGB Conc 32.1 g/dL (31.8-35.4); Mean Corpuscular Hemoglobin 32.3 pg (27.0-31.2); Mean Corpuscular Volume 100.6 fl (81-99); Mean Platelet Volume 8.5 fl (7.4-10.4); Monocytes # 0.3 K/mm3 (0.1-1.0); Monocytes % 4.4 % (1.7-9.3); Neutrophils # 4.1 K/mm3 (1.8-7.8); Neutrophils % 71.6 % (37.0-80.0); Platelet Count 709 K/mm3 (142-424); Red Blood Count 2.81 M/mm3 (4.20-5.40); Red Cell Distribution Width 14.6 % (11.5-17.5); White Blood Count 5.8 K/mm3 (4.8-10.8)
[2024-01-09 07:12] LABS: Magnesium 1.7 mg/dl (1.6-2.3)
[2024-01-09 07:17] LABS: Alanine Aminotransferase 20 U/L (12-78); Albumin Level 2.4 g/dl (3.5-5.0); Albumin/Globulin Ratio 0.9 (1.1-1.8); Alkaline Phosphatase 74 U/L (38-126); Anion Gap 5.2 mEq/L (5-15); Aspartate Amino Transferase 28 U/L (14-36); Bilirubin,Total 0.6 mg/dl (0.2-1.3); Blood Urea Nitrogen 5 mg/dl (7-17); C-Reactive Protein 165.2 mg/L (0-4); Calcium 8.3 mg/dl (8.4-10.2); Carbon Dioxide 27 mmol/L (22.0-30.0); Chloride 104 mmol/L (98-107); Creatinine Clearance Estimated 104 mL/min (50-200); Estimated Glomerular Filt Rate 85 ml/min (>60); GFR (African American) 103 ML/MIN (>60); Globulin 2.8 g/dL (1.3-3.2); Glucose 82 mg/dl (74-100); Potassium 3.2 mmoL/L (3.5-5.1); Sodium 133 mmol/L (136-145); Total Protein,Serum 5.2 g/dl (6.3-8.2)
--- NOTE | 2024-01-09 07:38 | EXP.PN ---
Subjective *Date: 01/09/24 *Time: 07:38 Interval history: Patient is seen and examined today accompanied by nursing staff. The patient reports no acute events overnight and describes adequate pain control. She is tolerating her advance diet and antibiotic therapy. She continues with postoperative care. Exam Data for Last 24 hours Vital signs and Labs for Last 24 Hours: Temp Pulse Resp BP Pulse Ox O2 Del Method O2 Flow Rate 99.3 F 82 16 118/71 98 Room Air 2 01/09/24 04:00 01/09/24 04:00 01/09/24 04:00 01/09/24 04:00 01/09/24 04:00 01/09/24 06:51 01/03/24 18:43 Laboratory Results - last 24 hr 01/08/24 07:20: WBC 6.4, RBC 2.96 L, Hgb 9.6 L, Hct 30.6 L, MCV 103.4 H, MCH 32.4 H, MCHC 31.3 L, RDW 14.4, Plt Count 699 H, MPV 8.6, Neut % (Auto) 70.1, Lymph % (Auto) 24.4, [place] % (Auto) 2.9, Eos % (Auto) 2.3, Baso % (Auto) 0.4, Neut # (Auto) 4.5, Lymph # (Auto) 1.6, [place] # (Auto) 0.2, Eos # (Auto) 0.2, Baso # (Auto) 0.0, Sodium 135 L, Potassium 3.3 L D, Chloride 106, Carbon Dioxide 30, Anion Gap 2.3 L, BUN 7, Creatinine 0.90 D, Estimated Creat Clear 81, Estimated GFR 64, Est GFR ( Amer) 77 D, Glucose 74, Calcium 8.0 L, Magnesium 1.9 D, Total Bilirubin 0.4, AST 25 D, ALT 23, Alkaline Phosphatase 72, Total Protein 5.5 L, Albumin 2.5 L, Globulin 3.0, Albumin/Globulin Ratio 0.8 L 01/09/24 06:15: WBC 5.8, RBC 2.81 L, Hgb 9.1 L, Hct 28.3 L, MCV 100.6 H, MCH 32.3 H, MCHC 32.1, RDW 14.6, Plt Count 709 H, MPV 8.5, Neut % (Auto) 71.6, Lymph % (Auto) 22.1, [place] % (Auto) 4.4, Eos % (Auto) 1.6, Baso % (Auto) 0.4, Neut # (Auto) 4.1, Lymph # (Auto) 1.3, [place] # (Auto) 0.3, Eos # (Auto) 0.1, Baso # (Auto) 0.0, Sodium 133 L, Potassium 3.2 L, Chloride 104, Carbon Dioxide 27, Anion Gap 5.2, BUN 5 L D, Creatinine 0.70 D, Estimated Creat Clear 104, Estimated GFR 85, Est GFR ( Amer) 103 D, Glucose 82, Calcium 8.3 L, Magnesium 1.7 D, Total Bilirubin 0.6, AST 28, ALT 20, Alkaline Phosphatase 74, C-Reactive Protein 165.2 H, Total Protein 5.2 L, Albumin 2.4 L, Globulin 2.8, Albumin/Globulin Ratio 0.9 L I & O for Last 24 hours: Intake & Output 01/06/24 01/07/24 01/08/24 01/09/24 23:59 23:59 23:59 23:59 Intake Total 4689 / 5039 1821 / 2241 2024 Output Total 800 / 1100 300 / 300 0 / 0 0 / 0 Balance 3889 / 3939 1521 / 1941 2024 0 / 0 Weight 76.204 kg 77.111 kg 77.111 kg 77.111 kg Microbiology Reports for the Last 24 Hours: Microbiology 01/05/24 15:25 Abdomen Gram Stain - Final 01/05/24 15:25 Abdomen Abscess Culture - Preliminary Gram Negative Rods Gram Negative Rods#2 01/04/24 21:50 Incision Gram Stain - Final 01/04/24 21:50 Incision Wound Culture - Final Enterobacter cloacae Proteus vulgaris Constitutional Constitutional: no acute distress *Routine Respiratory Exam Respiratory: Present normal respiratory effort and symmetric chest movement *Routine Cardiovascular Exam Cardiovascular: Present RRR; Absent murmur *Routine Abdominal Exam Abdominal: Present soft and normoactive bowel sounds *Routine Neurological Exam Neurological: Present alert, oriented X3, vision grossly intact, hearing grossly intact and normal speech Routine Psychiatric Exam Psychiatric: Present normal affect, normal thought process, cooperative, good insight and good judgment Assessment and Plan *Assessment and plan (1) Perforated sigmoid colon: Status: Acute Category: Medical Code(s): K63.1 - Perforation of intestine (nontraumatic) (2) S/P partial resection of colon: Status: Acute Category: Surgical Code(s): Z90.49 - Acquired absence of other specified parts of digestive tract (3) S/P colostomy: Status: Acute Category: Surgical Code(s): Z93.3 - Colostomy status (4) Peritonitis: Status: Acute Category: Medical Code(s): K65.9 - Peritonitis, unspecified (5) Hypothyroidism: Status: Acute Category: Medical Code(s): E03.9 - Hypothyroidism, unspecified (6) HTN (hypertension): Status: Acute Qualifiers: Hypertension type: primary hypertension Qualified Code(s): I10 - Essential (primary) hypertension Category: Medical Code(s): I10 - Essential (primary) hypertension (7) Ulcerative colitis: Status: Acute Qualifiers: Digestive disease complication type: with abscess Ulcerative colitis location: unspecified ulcerative colitis location Qualified Code(s): K51.914 - Ulcerative colitis, unspecified with abscess Category: Medical Code(s): K51.90 - Ulcerative colitis, unspecified, without complications (8) Contact dermatitis: Status: Acute Category: Medical Code(s): L25.9 - Unspecified contact dermatitis, unspecified cause (9) Anemia: Status: Acute Category: Medical Code(s): D64.9 - Anemia, unspecified Plan Patient is a 58-year-old female with past medical history of hypothyroidism hypertension, inflammatory bowel disease who presents to the hospital due to significant abdominal pain. Status post surgical resection of perforated portion of sigmoid colon. Ostomy created. Problems addressed as follows: Perforation of sigmoid colon with Pneumoperitoneum/peritonitis s/p partial resection of colon with creation of colostomy (01/02/2024) Ulcerative colitis Status post surgery 01/01 with partial bowel resection and creation of colostomy; washout of incision on 01/04 Discussed case with surgery, advance diet to low residue diet. Continue to monitor incision. Will transition antibiotics to Levaquin given sensitivity. Culture from incision and abdominal cavity show Enterobacter, Proteus, E. coli. All sensitive to Levaquin. Will complete 7 days total of antibiotics from washout. Last day of antibiotics 01/10. White cell count remains normal, renal function normal, LFT's normal. Zofran 4 mg IV every 8 hours as needed for nausea Pain control with Oxycodone 5 mg, transition to every 6 hours as needed. Continue Toradol 15 mg every 6 hours as needed for moderate to severe pain. Colostomy care per nursing Trending labs and inflammatory markers mesalamine 1600 mg 3 times a day for ulcerative colitis. Steroids are contraindicated. Unable to initiate immune modulators at this time due to infection Outpatient follow-up with GI Anemia: Hemoglobin improved to 9.6 today. Monitor for transfusion needs. Transfusion threshold hemoglobin less than 7. History of hypertension: Holding home losartan. Blood pressure soft at this time. Goal MAP greater than 65; blood pressure 105/67 Hypothyroid: Continue home [place] Thyroid 60 mg; TSH at goal of 1.49 Rash: Consistent with contact dermatitis. Continue topical therapy up to 3 times a day as needed Full code Low residue diet Surrogate is Wai The patient is hospitalized day 8 with above diagnoses. We appreciate technology methodology consultant evaluation, surgical intervention and postsurgical care and recommendations. Case management is assisting with discharge planning including abdominal wound care/ostomy care. Barriers to discharge currently include postsurgical care, assessing p.o. intake and effective bowel elimination. Expected day of discharge over the next day or 2.
[2024-01-09 08:00] VITALS: BP 95/55; PULSE 82; RESP 16; TEMP 36.6; O2SAT 93
[2024-01-09] MEDS: MESALAMINE 800MG TABLET DR 1600 MG PO (09:14)
[2024-01-09] MEDS: MAGNESIUM SULFATE IN WATER 2 GM/50 ML PIGGYBACK IV (09:14)
--- NOTE | 2024-01-09 09:15 | P.PN_ITS ---
Subjective Narrative: Patient is doing well. Feels well. Tolerating some low residue diet. States that she is ready to go home. has been helping with colostomy care and dressing changes. Exam Data for Last 24 hours Vital signs and Labs for Last 24 Hours: Temp Pulse Resp BP Pulse Ox O2 Del Method O2 Flow Rate 98 F 82 16 95/55 L 93 L Room Air 2 01/09/24 08:00 01/09/24 08:00 01/09/24 08:00 01/09/24 08:00 01/09/24 08:00 01/09/24 08:00 01/03/24 18:43 Laboratory Results - last 24 hr 01/08/24 07:20: Magnesium 1.9 D 01/09/24 06:15: WBC 5.8, RBC 2.81 L, Hgb 9.1 L, Hct 28.3 L, MCV 100.6 H, MCH 32.3 H, MCHC 32.1, RDW 14.6, Plt Count 709 H, MPV 8.5, Neut % (Auto) 71.6, Lymph % (Auto) 22.1, [place] % (Auto) 4.4, Eos % (Auto) 1.6, Baso % (Auto) 0.4, Neut # (Auto) 4.1, Lymph # (Auto) 1.3, [place] # (Auto) 0.3, Eos # (Auto) 0.1, Baso # (Auto) 0.0, Sodium 133 L, Potassium 3.2 L, Chloride 104, Carbon Dioxide 27, Anion Gap 5.2, BUN 5 L D, Creatinine 0.70 D, Estimated Creat Clear 104, Estimated GFR 85, Est GFR ( Amer) 103 D, Glucose 82, Calcium 8.3 L, Magnesium 1.7 D, Total Bilirubin 0.6, AST 28, ALT 20, Alkaline Phosphatase 74, C-Reactive Protein 165.2 H, Total Protein 5.2 L, Albumin 2.4 L, Globulin 2.8, Albumin/Globulin Ratio 0.9 L I & O for Last 24 hours: Intake & Output 01/06/24 01/07/24 01/08/24 01/09/24 11:59 11:59 11:59 11:59 Intake Total 4669 / 4669 2380 / 2380 1611 / 1611 1725 / 1725 Output Total 800 / 800 500 / 500 0 / 0 0 / 0 Balance 3869 / 3869 1880 / 1880 1611 / 1611 1725 / 1725 Weight 168 lb 170 lb 170 lb 0.01 oz 170 lb 0.01 oz Microbiology Reports for the Last 24 Hours: Microbiology 01/05/24 15:25 Abdomen Gram Stain - Final 01/05/24 15:25 Abdomen Abscess Culture - Preliminary Gram Negative Rods Gram Negative Rods#2 01/04/24 21:50 Incision Gram Stain - Final 01/04/24 21:50 Incision Wound Culture - Final Enterobacter cloacae Proteus vulgaris *Routine Abdominal Exam Comments: Tender in the right lower quadrant. No erythema. Some thin drainage from the wound. Colostomy functioning. Progress Note: A&P Assessment and plan (1) Perforated sigmoid colon: Status: Acute Assessment and plan: DC home with dressing changes and oral antibiotics (levofloxacin) with early outpatient follow-up. (2) S/P partial resection of colon: Status: Acute (3) S/P colostomy: Status: Acute (4) Peritonitis: Status: Acute (5) Hypothyroidism: Status: Acute (6) HTN (hypertension): Status: Acute (7) Ulcerative colitis: Status: Acute (8) Contact dermatitis: Status: Acute (9) Anemia: Status: Acute
--- NOTE | 2024-01-09 10:02 | PC.NURSE ---
Dressing changed and pt educated and verbalized understanding.
--- NOTE | 2024-01-09 10:45 | EXP.DC.SUM ---
General Admission date:: 01/02/24 Discharge date: 01/09/24 HPI HPI HPI: Mrs. Debora Haywood is a 58-year-old female with a history of inflammatory bowel disease and hypertension who presents with 4-day history of obstipation and abdominal pain, accompanied by chills and rigors. 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 She has a history of inflammatory bowel disease, first that have had ulcerative colitis, but per patient most recent colonoscopy was more indicative of Crohn's disease. She does not take any maintenance therapy. Her last colonoscopy was [address] Juarez. There was gross finding of severe inflammatory changes in the sigmoid colon. 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 Approximately 2 weeks ago, she had constipation and distention, and she was concerned that she had a Crohn's flare. She saw her PCP, who placed her on a steroid taper. Her last day of prednisone 10 mg scheduled to be tomorrow. Workup in the emergency room showed a mild leukocytosis with WBCs of 10.9, no significant electrolyte or other abnormalities on labs. CT scan showed phlegmon in the sigmoid colon with localized free air and fluid. Hospital Course Hospital Course Hospital Course: Patient is a 58-year-old female with past medical history of hypothyroidism, hypertension, inflammatory bowel disease who presented to the ED with abdominal pain. She underwent surgical resection of the perforated portion of her sigmoid colon with ostomy creation. During her postoperative period she tolerated an advanced diet with effective bowel elimination. Imaging, labs and inflammatory markers were assessed and trended. Her hemoglobin postoperatively remained stable. She ambulated with no assistance. She identified improvement and request to be discharged home. Her will assist in colostomy care and she has a scheduled follow-up appointment with her surgeon this coming . She understands the importance of following up with her PCP. I spent 35 minutes in [id number] time with the patient and nursing staff concerning the discharge process. We discussed the admitting diagnoses and hospital course. We discussed identified improvement and the patient's desire to be discharged. We reviewed inpatient studies and imaging. The patient voiced understanding on the importance of follow-up with her primary care provider and general surgeon. The patient plans to be compliant with the medication regimen prescribed and follow-up appointments. She understands that she can return to the emergency department with any sudden changes or concerns. Exam Data for Last 24 hours Vital signs and Labs for Last 24 Hours: Temp Pulse Resp BP Pulse Ox O2 Del Method O2 Flow Rate 98 F 82 16 95/55 L 93 L Room Air 2 01/09/24 08:00 01/09/24 08:00 01/09/24 08:00 01/09/24 08:00 01/09/24 08:00 01/09/24 09:00 01/03/24 18:43 Laboratory Results - last 24 hr 01/09/24 06:15: WBC 5.8, RBC 2.81 L, Hgb 9.1 L, Hct 28.3 L, MCV 100.6 H, MCH 32.3 H, MCHC 32.1, RDW 14.6, Plt Count 709 H, MPV 8.5, Neut % (Auto) 71.6, Lymph % (Auto) 22.1, [place] % (Auto) 4.4, Eos % (Auto) 1.6, Baso % (Auto) 0.4, Neut # (Auto) 4.1, Lymph # (Auto) 1.3, [place] # (Auto) 0.3, Eos # (Auto) 0.1, Baso # (Auto) 0.0, Sodium 133 L, Potassium 3.2 L, Chloride 104, Carbon Dioxide 27, Anion Gap 5.2, BUN 5 L D, Creatinine 0.70 D, Estimated Creat Clear 104, Estimated GFR 85, Est GFR ( Amer) 103 D, Glucose 82, Calcium 8.3 L, Magnesium 1.7 D, Total Bilirubin 0.6, AST 28, ALT 20, Alkaline Phosphatase 74, C-Reactive Protein 165.2 H, Total Protein 5.2 L, Albumin 2.4 L, Globulin 2.8, Albumin/Globulin Ratio 0.9 L I & O for Last 24 hours: Intake & Output 01/06/24 01/07/24 01/08/24 01/09/24 23:59 23:59 23:59 23:59 Intake Total 1039 / 5039 1821 / 2241 2024 360 / 360 Output Total 800 / 1100 300 / 300 0 / 0 0 / 0 Balance 3889 / 3939 152 / [id number] 360 / 360 Weight 76.204 kg 77.111 kg 77.111 kg 77.111 kg Microbiology Reports for the Last 24 Hours: Microbiology 01/05/24 15:25 Abdomen Gram Stain - Final 01/05/24 15:25 Abdomen Abscess Culture - Final Enterobacter cloacae Proteus vulgaris 01/04/24 21:50 Incision Gram Stain - Final 01/04/24 21:50 Incision Wound Culture - Final Enterobacter cloacae Proteus vulgaris Constitutional Constitutional: no acute distress and average body habitus *Routine HEENT Exam Head: Present normocephalic Eye: Present EOMI ENT: Present mucous membranes moist *Routine Neck Exam Neck: Present supple and full ROM *Routine Respiratory Exam Respiratory: Present CTA bilaterally, normal respiratory effort and symmetric chest movement *Routine Cardiovascular Exam Cardiovascular: Present RRR; Absent murmur *Routine Abdominal Exam Abdominal: Present soft and normoactive bowel sounds *Routine Extremities Exam Extremities: Present full ROM; Absent edema *Routine Skin Exam Skin: Present warm; Absent rash *Routine Neurological Exam Neurological: Present alert, oriented X3, moving all extremities, vision grossly intact, hearing grossly intact and normal speech Routine Psychiatric Exam Psychiatric: Present normal affect, normal thought process, cooperative, good insight and good judgment Results Data Completed and Pending Labs on day of discharge: Labs from last 24 hours 01/09/24 06:15 WBC 5.8 RBC 2.81 L Hgb 9.1 L Hct 28.3 L MCV 100.6 H MCH 32.3 H MCHC 32.1 RDW 14.6 Plt Count 709 H MPV 8.5 Neut % (Auto) 71.6 Lymph % (Auto) 22.1 [place] % (Auto) 4.4 Eos % (Auto) 1.6 Baso % (Auto) 0.4 Neut # (Auto) 4.1 Lymph # (Auto) 1.3 [place] # (Auto) 0.3 Eos # (Auto) 0.1 Baso # (Auto) 0.0 Sodium 133 L Potassium 3.2 L Chloride 104 Carbon Dioxide 27 Anion Gap 5.2 BUN 5 L D Creatinine 0.70 D Estimated Creat Clear 104 Estimated GFR 85 Est GFR ( Amer) 103 D Glucose 82 Calcium 8.3 L Magnesium 1.7 D Total Bilirubin 0.6 AST 28 ALT 20 Alkaline Phosphatase 74 C-Reactive Protein 165.2 H Total Protein 5.2 L Albumin 2.4 L Globulin 2.8 Albumin/Globulin Ratio 0.9 L DS: Diagnosis Discharge Diagnosis (1) Perforated sigmoid colon: Status: Acute Code(s): K63.1 - Perforation of intestine (nontraumatic) (2) S/P partial resection of colon: Status: Acute Code(s): Z90.49 - Acquired absence of other specified parts of digestive tract (3) S/P colostomy: Status: Acute Code(s): Z93.3 - Colostomy status (4) Peritonitis: Status: Acute Code(s): K65.9 - Peritonitis, unspecified (5) Hypothyroidism: Status: Acute Code(s): E03.9 - Hypothyroidism, unspecified (6) HTN (hypertension): Status: Acute Code(s): I10 - Essential (primary) hypertension Qualifiers: Hypertension type: primary hypertension Qualified Code(s): I10 - Essential (primary) hypertension (7) Ulcerative colitis: Status: Acute Code(s): K51.90 - Ulcerative colitis, unspecified, without complications Qualifiers: Digestive disease complication type: with abscess Ulcerative colitis location: unspecified ulcerative colitis location Qualified Code(s): K51.914 - Ulcerative colitis, unspecified with abscess (8) Contact dermatitis: Status: Acute Code(s): L25.9 - Unspecified contact dermatitis, unspecified cause (9) Anemia: Status: Acute Code(s): D64.9 - Anemia, unspecified Meds Home Medications and Allergies Home Medications Medication Instructions Recorded Confirmed Type progesterone micronized 100 mg 200 mg PO HS 10/07/20 01/02/24 History capsule losartan 50 mg-hydrochlorothiazide 1 tab PO DAILY #30 tabs 11/27/22 01/02/24 Rx 12.5 mg tablet thyroid (pork) 60 mg tablet ([employer] 60 mg PO DAILY 12/15/23 01/02/24 History Thyroid) balsalazide 750 mg capsule 2,250 mg (3 x 750 mg) PO TID 30 01/08/24 Rx days #270 caps hydrocodone 5 mg-acetaminophen 325 1 tab PO Q6H PRN pain 3 days #12 01/08/24 Rx mg tablet tabs levofloxacin 750 mg tablet 750 mg PO DAILY #3 tabs 01/08/24 Rx New Prescriptions to Start Prescriptions: Beto Garcia hydrocodone-acetaminophen Beto Thurman levofloxacin Beto Thurman Allergies Allergy/AdvReac Type Severity Reaction Status Date / Time codeine [CODEINE] Allergy Mild Verified 12/15/23 16:33 Sulfa (Sulfonamide Allergy Mild Verified 12/15/23 16:33 Antibiotics) [SULFA (SULFONAMIDE ANTIBIOTICS)] Discharge Plan Disposition Patient Disposition: Home, Self-Care Condition: Fair Discharge Order Discharge Orders: Discharge Order (Routine); Ordered 01/09/24 Ordered By: Hipolito Jackson Follow up Plan Follow up with: Hipolito Jackson MD [Staff Physician] - 01/13/24 (please call for appointment) Sirena Johnson [Referring] - Enter time for follow up (please call for follow up appointment) Prescriptions/Medication Reconciliation: New levofloxacin 750 mg tablet 750 mg PO DAILY Qty: 3 0RF hydrocodone-acetaminophen 5-325 mg tablet 1 tab PO Q6H PRN (Reason: pain) 3 Days Qty: 12 0RF balsalazide 750 mg capsule 2,250 mg PO TID 30 Days Qty: 270 0RF Continued progesterone micronized 100 mg capsule 200 mg PO HS thyroid (pork) [[employer] Thyroid] 60 mg tablet 60 mg PO DAILY Held losartan-hydrochlorothiazide 50-12.5 mg tablet 1 tab PO DAILY Qty: 30 2RF Hold Instructions: Until reevaluation as an outpatient with PCP Problem Reconciliation Problems Reviewed?: Yes Patient Discharge Instructions ACTIVITY: No heavy lifting DIET: continue same diet and other Additional Instructions: LOW RESIDUE DIET DRESSING CHANGE, DRY GAUZE, DAILY. Patient Instructions: How to Care for Your Colostomy or Ileostomy, DI for Exploratory Laparotomy, DI for Surgical Site Infection, Colon Perforation, Colostomy / Ileostomy Providers Primary Care Provider: Provider,Referral Admit Provider: Eloy Kelley Attending Provider: Eloy Kelley
--- NOTE | 2024-01-10 13:24 | CARE MANAGER ---
Spoke with patient for post-discharge follow-up phone call, no issues noted.
== END 2024-01-09 10:33 | disposition home or self-care (01) | DRG 329 ==
LOC: ER 06:29 → SDC 06:29 → 2ND 09:12
PROVIDERS: Internal Medicine Adolescent Medicine; Surgery; Admitting Provider Internal Medicine; Emergency Provider Emergency Medicine; Visit Provider Internal Medicine
PROC: (CPT 49000; principal; 2024-01-02 06:00)
PROC: 3E1038Z Irrigation of Skin and Mucous Membranes using Irrigating Substance, Percutaneous Approach (ICD-10-PCS; principal; 2024-01-05 14:15)
DX: K63.1 Perforation of intestine (nontraumatic) (principal); K65.8 Other peritonitis; K51.80 Other ulcerative colitis without complications; K58.9 Irritable bowel syndrome, unspecified; E03.9 Hypothyroidism, unspecified; I10 Essential (primary) hypertension; D64.9 Anemia, unspecified; L30.8 Other specified dermatitis
CPT/HCPCS: 44143; 36415; 74176; 74177; 80053; 80202; 81001; 83690; 83735; 84443; 85007; 85025; 86140; 87040; 87070; 87075; 87077; 87186; 87205; 99291; J3490; C9290; J0131; J1100; J1170; J1650; J1885; J1956; J2250; J2270; J2405; J2543; J3010; J3370; J3475; J7120; Q9967

== ENCOUNTER 2024-01-13 10:18 | Outpatient (CLI) | payer OTHER, SELFPAY ==
--- NOTE | 2024-01-13 10:30 | CT_ITS ---
FINAL REPORT CLINICAL HISTORY: post op, resection, abd pain COMPARISON: January 04, 2024 FINDINGS: CT OF THE ABDOMEN AND PELVIS WITH CONTRAST Axial CT images of the abdomen and pelvis were obtained after the administration of IV contrast. Coronal and sagittal reformatted images were also obtained and reviewed.This study was performed with techniques to keep radiation doses as low as reasonably achievable (ALARA). Individualized dose reduction techniques using automated exposure control or adjustment of mA and/or kV according to the patient''s size were employed. Abdomen: There is mild atelectasis at the lung bases.. The heart is normal in size. The liver has an unremarkable appearance, without evidence of mass or biliary ductal dilatation. The spleen is unremarkable. No adrenal mass is present. The pancreas has an unremarkable appearance. The kidneys are normal, without evidence of mass or hydronephrosis. The aorta is normal in caliber. There is no free fluid or adenopathy. No mass or abnormal fluid collection is seen. Pelvis: The appendix unremarkable. The urinary bladder is unremarkable. Mild wall thickening is seen of the descending colon that may be inflammatory. The pelvic drain has been removed. No new mass or abnormal fluid collection is seen. A midline anterior pelvis subcutaneous defect is noted. 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 IMPRESSION: Interval removal of the pelvic drain. No new mass or fluid collection. Descending colon wall thickening, favor inflammatory. Anterior pelvis subcutaneous defect. Authenticated and [facility]
[2024-01-13 10:46] LABS: Basophils % 0.5 % (0.1-2.0); Eosinophils # 0.1 K/mm3 (0.0-0.4); Eosinophils % 1.9 % (0.1-12.0); Hematocrit 33.5 % (37.0-47.0); Hemoglobin 10.7 g/dL (12.2-16.2); Lymphocytes # 1.3 K/mm3 (0.7-4.5); Lymphocytes % 18.7 % (10-50); Mean Corpuscular HGB Conc 31.8 g/dL (31.8-35.4); Mean Corpuscular Hemoglobin 31.9 pg (27.0-31.2); Mean Corpuscular Volume 100.4 fl (81-99); Mean Platelet Volume 8.3 fl (7.4-10.4); Monocytes # 0.3 K/mm3 (0.1-1.0); Monocytes % 4.8 % (1.7-9.3); Neutrophils # 5.2 K/mm3 (1.8-7.8); Neutrophils % 74.2 % (37.0-80.0); Platelet Count 938 K/mm3 (142-424); Red Blood Count 3.34 M/mm3 (4.20-5.40); Red Cell Distribution Width 14.8 % (11.5-17.5); White Blood Count 7.1 K/mm3 (4.8-10.8)
[2024-01-13 10:48] LABS: Chloride 108 mmol/L (98-107); Potassium 3.1 mmoL/L (3.5-5.1); Sodium 138 mmol/L (136-145)
[2024-01-13 10:51] LABS: Anion Gap 6.1 mEq/L (5-15); Blood Urea Nitrogen 7 mg/dl (7-17); Calcium 8.7 mg/dl (8.4-10.2); Carbon Dioxide 27 mmol/L (22.0-30.0); Estimated Glomerular Filt Rate 73 ml/min (>60); GFR (African American) 89 ML/MIN (>60); Glucose 85 mg/dl (74-100)
[2024-01-13] MEDS: IOPAMIDOL-370 (76%);100ML BOTTLE 75 ML IV (10:54)
[2024-01-13] MEDS: SODIUM CHLORIDE 0.9% 10ML SYR (RAD ONLY) 10 ML IV (10:55)
== END 2024-01-13 23:59 | disposition home or self-care (01) ==
LOC: LAB 10:19
PROVIDERS: PCP Nurse Practitioner Adult Health; Visit Provider Surgery
DX: Z90.49 Acquired absence of other specified parts of digestive tract (principal); Z93.3 Colostomy status; K51.914 Ulcerative colitis, unspecified with abscess
CPT/HCPCS: 36415; 74177; 80048; 82565; 84520; 85025; Q9967

== ENCOUNTER 2024-04-03 08:14 | Outpatient (CLI) | payer OTHER, SELFPAY ==
--- NOTE | 2024-04-03 08:30 | CT_ITS ---
FINAL REPORT TECHNIQUE: Routine axial images were obtained from the lung apices to below the diaphragm following IV contrast administration. Individualized dose reduction techniques using automated exposure control or adjustment of the mA and/or kV according to the patient size were employed. CLINICAL HISTORY: POLYP OF COLON COMPARISON: None FINDINGS: Bilateral breast implants are noted. No acute lung disease is present. No pleural or pericardial effusion is seen. There are a few small scattered mediastinal nodes present, none enlarged. There is mild biapical pleural and parenchymal scarring. IMPRESSION: No mass, significant adenopathy, or infiltrate are identified. Reviewed, Interpreted and Dictated by Tyrone Gilman MD Transcribed by Lavinia Rueda Authenticated and . [facility]
--- NOTE | 2024-04-03 08:30 | CT_ITS ---
FINAL REPORT TECHNIQUE: After the administration of oral and intravenous contrast, axial images were obtained through the abdomen and pelvis by computed tomography. The study was performed with techniques to keep radiation dose as low as reasonably achievable, (ALARA). Individual dose reduction techniques using automated exposure control or adjustment of mA and/or kV according to the patient's size were employed. CLINICAL HISTORY: .polyp of colon, colon resection, preop for reversal COMPARISON: 01/13/2024 FINDINGS: Abdomen: The lung bases are clear. The liver parenchyma is homogeneous. The gallbladder is present. The spleen, pancreas, adrenals and kidneys appear unremarkable. The aorta is normal in caliber. There is no free fluid or adenopathy. Pelvis: The appendix is normal. The left anterior pelvic ostomy noted on the prior exam is stable in appearance. The urinary bladder is decompressed. There is no free fluid or adenopathy. The presacral stranding noted on the prior CT of January 2024 has resolved. Note is made of bilateral pars defects. IMPRESSION: Left anterior pelvic ostomy is stable in appearance. The presacral stranding noted on the prior CT of January 2024 has resolved. Reviewed, Interpreted and Dictated by Tyrone Gilman MD Transcribed by Lavinia Rueda Authenticated and [facility]
[2024-04-03 08:46] LABS: Blood Urea Nitrogen 13 mg/dl (7-17); Estimated Glomerular Filt Rate 73 ml/min (>60); GFR (African American) 89 ML/MIN (>60)
[2024-04-03] MEDS: IOPAMIDOL-370 (76%);100ML BOTTLE 75 ML IV (09:23)
[2024-04-03] MEDS: SODIUM CHLORIDE 0.9% 10ML SYR (RAD ONLY) 10 ML IV (09:23)
== END 2024-04-03 23:59 | disposition home or self-care (01) ==
PROVIDERS: PCP Nurse Practitioner Adult Health; Visit Provider Surgery
DX: K57.92 Diverticulitis of intestine, part unspecified, without perforation or abscess without bleeding (principal); K63.5 Polyp of colon
CPT/HCPCS: 36415; 71260; 74177; 82565; 84520; Q9967